=== PATIENT | male | born 1945 | race Caucasian/White ===

== ENCOUNTER 2018-04-03 08:53 | Inpatient (IN) ==
--- NOTE | 2018-04-03 09:23 | XRay Report ---
CLINICAL INFORMATION: sob COMPARISON: 01/10/2016 FINDINGS: Right IJ double-lumen catheter tip overlies the right atrium. The heart is borderline enlarged, but stable. Mediastinum and pulmonary vessels are normal. There is minor atelectasis in left lateral base - remainder lungs are clear. The right lung is relatively hyperexpanded - as previously seen. IMPRESSION: Minor left basilar atelectasis. Interpreted and Authenticated by: Oleg Vargas 04/03/18
--- NOTE | 2018-04-03 09:45 | Emergency Department Note ---
General Adult HPI - General Chief complaint: Recheck/Abnormal Lab/Rx Stated complaint: Call from Dr. Schwarz. Sent to ER. Pos Blood Cultures Time Seen by Provider: 04/03/18 09:36 Source: patient Mode of arrival: ambulatory Limitations: no limitations - History of Present Illness HPI Narrative: This patient was sent to the ED by Dr. Schwarz the radiology aide for admission after having 2+ blood cultures. They were positive for gram positive cocci. The patient is asymptomatic and feels fine. He does have a port in the right upper chest. He has had no recent fever chills nausea vomiting cough or abdominal pain. Dr. Schwarz has given orders and wants to start vancomycin and cefepime after new cultures are drawn. He will then be admitted. - Related Data Home Medications Medication Instructions Recorded Confirmed acetaminophen 325 mg tablet 650 mg PO QID PRN 02/27/18 02/27/18 bisacodyl 10 mg rectal suppository 10 mg TN QDAY PRN 02/27/18 02/27/18 docusate sodium 100 mg tablet 100 mg PO BID 02/27/18 02/27/18 furosemide 80 mg tablet 80 mg PO BID tab 02/27/18 02/27/18 insulin glargine (U-100) 100 15 unit SUB-Q QAM ml 02/27/18 02/27/18 unit/mL subcutaneous solution magnesium hydroxide 400 mg/5 mL 30 ml PO QDAY PRN 02/27/18 02/27/18 oral suspension metoprolol tartrate 25 mg tablet 25 mg PO BID 02/27/18 02/27/18 polyethylene glycol 3350 17 gram 17 g PO QDAY PRN 02/27/18 02/27/18 oral powder packet sennosides 8.6 mg tablet 8.6 mg PO QDAY PRN tab 02/27/18 02/27/18 sevelamer carbonate 800 mg tablet 1,600 mg PO TID tab 02/27/18 02/27/18 sodium phosphates 19 gram-7 118 ml TN ONCE PRN 02/27/18 02/27/18 gram/118 mL enema vitamin B complex-vitamin C-folic 1 tab PO QDAY 02/27/18 02/27/18 acid 0.8 mg tablet Previous Rx's Medication Instructions Recorded amlodipine 10 mg tablet 10 mg PO QDAY #90 tab 12/13/17 Allergies Allergy/AdvReac Type Severity Reaction Status Date / Time sulfamethoxazole Allergy Mild Hives Verified 04/03/18 08:53 [From Bactrim] trimethoprim [From Bactrim] Allergy Mild Hives Verified 04/03/18 08:53 Review of Systems Constitutional: Denies: fever, chills ENT ED: Denies: throat pain Cardiovascular: Denies: chest pain Respiratory: Denies: shortness of breath, cough Gastrointestinal: Denies: abdominal pain, nausea Genitourinary: Denies: dysuria Past Medical History - Past Medical History [facility] Narrative: Medical History (Last Reviewed 02/27/18 @ 13:47 by Maryanne Schwarz MD) 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 ( Chronic) Persistent proteinuria (Chronic) CKD (chronic kidney disease) stage 3, GFR 30-59 ml/min (Chronic) Sepsis affecting skin (Acute) Diabetes mellitus due to underlying condition with diabetic neuropathy, with long-term current use of insulin (Acute) Diabetes mellitus due to underlying condition with foot ulcer, with long-term current use of insulin (Acute) Diabetic foot ulcer associated with diabetes mellitus due to underlying condition (Acute) Malignant hypertension (Acute) Family History (Last Reviewed 02/27/18 @ 13:47 by Maryanne Schwarz MD) Sister Cancer Surgical history ED: Reports: non-contributory - Social History smoking status: Never smoker Alcohol use: Reports: None Drug use: Reports: none Physical Exam Limitations: no limitations General appearance: alert Head: atraumatic Eye: Present: normal appearance ENT: normal exam Neck: Present: normal inspection Chest: Present: normal inspection Respiratory: Present: normal lung sounds bilaterally Cardiovascular: Present: regular rate, normal rhythm, normal heart sounds Abdominal: Present: soft. Absent: distention, tenderness Neurological: Present: alert Psychiatric: Present: normal affect, normal mood Skin: Present: warm, dry, intact Course Vital Signs Temperature 97.7 F 04/03/18 08:54 Pulse Rate 90 04/03/18 08:54 Respiratory Rate 18 04/03/18 08:54 Blood Pressure 112/73 04/03/18 08:54 Pulse Oximetry (%) 97 04/03/18 08:54 Temperature 97.7 F 04/03/18 08:54 Pulse Rate 79 04/03/18 10:46 Respiratory Rate 11 L 04/03/18 11:06 Blood Pressure 137/58 04/03/18 11:01 Pulse Oximetry (%) 95 04/03/18 10:46 Medical Decision Making - [facility] Narrative Medical decision making narrative: Patient's lab work and x-ray were not very remarkable. He did receive vancomycin and cefepime here in the ER and will be admitted to the hospital by Dr. David. - Lab Data Lab results reviewed: Yes I reviewed the patient's lab results. Result diagrams: 04/03/18 09:22 04/03/18 09:22 Lab Results 04/03/18 04/03/18 04/03/18 Range/Units 09:22 09:22 09:22 WBC 13.7 H (4.5-11.0) K/mcL RBC 3.40 L (4.50-5.90) M/mcL Hgb 9.2 L (13.5-16.5) g/dL Hct 27.6 L (41.0-55.0) % MCV 81.1 (80.0-100.0) fL MCH 27.0 (26.0-34.0) pg MCHC 33.3 (31.0-36.0) g/dL RDW 17.0 H (11.5-14.5) % Plt Count 256 (140-440) K/mcL MPV 7.3 L (7.4-10.4) fL Total Counted 100 Seg Neutrophils % 87 H (38-78) % Band Neutrophils % 1 (0-10) % Lymphocytes % 8 L (15-49) % Monocytes % (Manual) 4 (1-12) % Platelet Estimate Normal (NORMAL) RBC Morphology Abnorm A (NORMAL) Anisocytosis 1+ A (NONE SEEN) VBG Lactic Acid 1.4 (0.5-2.2) mmol/L Sodium 136 (133-145) mmol/L Potassium 4.3 (3.3-5.1) mmol/L Chloride 96 (96-108) mmol/L Carbon Dioxide 27 (22-30) mmol/L Anion Gap 13.0 (8-16) BUN 29 H (8-23) mg/dl Creatinine 4.2 H (0.7-1.2) mg/dl GFR Calculation 13 Glucose 178 H (70-105) mg/dL Calcium 8.3 L (8.6-10.4) mg/dl Total Bilirubin 0.8 (0.0-1.0) mg/dL AST 29 (0-37) U/l ALT 21 (0-40) U/l Alkaline Phosphatase 175 H (39-117) U/L Total Protein 6.8 (5.9-8.4) gm/dL Albumin 2.5 L (3.2-5.2) gm/dL Globulin 4.3 H (2.2-3.7) gm/dL Albumin/Globulin Ratio 0.6 L (1.0-2.3) Procalcitonin (<0.10) ng/mL 04/03/18 Range/Units 09:22 WBC (4.5-11.0) K/mcL RBC (4.50-5.90) M/mcL Hgb (13.5-16.5) g/dL Hct (41.0-55.0) % MCV (80.0-100.0) fL MCH (26.0-34.0) pg MCHC (31.0-36.0) g/dL RDW (11.5-14.5) % Plt Count (140-440) K/mcL MPV (7.4-10.4) fL Total Counted Seg Neutrophils % (38-78) % Band Neutrophils % (0-10) % Lymphocytes % (15-49) % Monocytes % (Manual) (1-12) % Platelet Estimate (NORMAL) RBC Morphology (NORMAL) Anisocytosis (NONE SEEN) VBG Lactic Acid (0.5-2.2) mmol/L Sodium (133-145) mmol/L Potassium (3.3-5.1) mmol/L Chloride (96-108) mmol/L Carbon Dioxide (22-30) mmol/L Anion Gap (8-16) BUN (8-23) mg/dl Creatinine (0.7-1.2) mg/dl GFR Calculation Glucose (70-105) mg/dL Calcium (8.6-10.4) mg/dl Total Bilirubin (0.0-1.0) mg/dL AST (0-37) U/l ALT (0-40) U/l Alkaline Phosphatase (39-117) U/L Total Protein (5.9-8.4) gm/dL Albumin (3.2-5.2) gm/dL Globulin (2.2-3.7) gm/dL Albumin/Globulin Ratio (1.0-2.3) Procalcitonin 2.56 (<0.10) ng/mL - Radiology Data Radiology results reviewed: Yes I reviewed the patient's radiology results. Disposition Pt seen by RESOURCE CONSERVATION MANAGER/PA only: No Clinical Impression: Positive blood culture Disposition: Xfer As Inpt ([facility]) Condition: Good Referrals: Allen Holliday DO [Primary Care Provider] - Time of Disposition: 11:27
[2018-04-03] MEDS ORDERED: VANCOMYCIN PER PHARMACY IV ONE (09:46)
[2018-04-03] MEDS ORDERED: CEFEPIME 1 GM VIAL IV ONE (09:46)
[2018-04-03 09:58] LABS: Mean Cell Volume 81.1 fL (80.0-100.0); Mean Corpuscular HGB Conc 33.3 g/dL (31.0-36.0); Platelet Count 256 K/mcL (140-440)
[2018-04-03] MEDS ORDERED: VANCOMYCIN 1,500 MG in 0.9 % SODIUM CHLORIDE 500 ML IV ONE (10:00)
[2018-04-03 10:20] LABS: ALT/SGPT 21 U/l (0-40); Albumin 2.5 gm/dL (3.2-5.2); Albumin/Globulin Ratio 0.6 (1.0-2.3); Alkaline Phosphatase 175 U/L (39-117); Blood Urea Nitrogen 29 mg/dl (8-23)
[2018-04-03 10:25] LABS: Anisocytosis 1+ (NONE SEEN); Band Neutrophils % 1 % (0-10); Lymphocytes % 8 % (15-49); Monocytes % (Manual) 4 % (1-12); Platelet Estimate NORMAL (NORMAL); RBC Morphology ABNORM (NORMAL); Segmented Neutrophils % 87 % (38-78)
--- NOTE | 2018-04-03 13:34 | Internal Med History&Physical ---
Medical - H&P: [facility] Patient information: Note initiated : 04/03/18 at 1:31 pm Service Date, if different from initiated Date: [] Patient: Eb Cornell a 72 y/o M admitted on 04/03/[address] Schwarz, Sent to ER, Pos Blood Cultures. Chief Complaint: [] History of present illness: Mr. Cornell is a 72 year old M Who is a difficult historian. He was seen in the ER by his guncotton packer after positive blood culture. It grew gram-positive cocci. In trying to gather why the blood culture was done sounds like he had some labs that were done which were abnormal suspect may be he had a white blood cell count that was elevated and the workup included blood cultures as her seem to be no clear source at the time. He has no complaints at this time. Denies any recent sick contacts. However he has been in the hospital recently for an amputation of the right lower extremity. Patient denies coughing shortness of breath chest pain denies stomach pain. He does report however diarrhea over the last 3-4 days, but could not describe how often during the day and details surrounding diarrhea. Also denies fevers and chills. Review of Systems: Positive for diarrhea. Denies headache/fever/chills/nausea/vomiting/chest or abdominal pain/cough/dyspnea. Remaining 10 point review of systems reviewed and negative Medical - H&P: [facility] Medical history: Medical History (Last Reviewed 02/27/18 @ 13:47 by Maryanne Schwarz MD) 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 ( Chronic) Persistent proteinuria (Chronic) CKD (chronic kidney disease) stage 3, GFR 30-59 ml/min (Chronic) Sepsis affecting skin (Acute) Diabetes mellitus due to underlying condition with diabetic neuropathy, with long-term current use of insulin (Acute) Diabetes mellitus due to underlying condition with foot ulcer, with long-term current use of insulin (Acute) Diabetic foot ulcer associated with diabetes mellitus due to underlying condition (Acute) Malignant hypertension (Acute) Surgical history: Left lower extremity amputation Appendectomy Bilateral knee surgery Family history: Mother had diabetes Could not give me any medical history regarding his father Social history: Patient denies tobacco or alcohol Patient uses a wheelchair and Christiana lift Patient resides at a SNF Medical - H&P: Meds Home Medications Medication Instructions Recorded Confirmed Type amlodipine 10 mg tablet 10 mg PO QDAY #90 tab 12/13/17 02/27/18 Rx acetaminophen 325 mg tablet 650 mg PO QID PRN 02/27/18 02/27/18 History bisacodyl 10 mg rectal suppository 10 mg VT QDAY PRN 02/27/18 02/27/18 History docusate sodium 100 mg tablet 100 mg PO BID 02/27/18 02/27/18 History furosemide 80 mg tablet 80 mg PO BID tab 02/27/18 02/27/18 History insulin glargine (U-100) 100 15 unit SUB-Q QAM ml 02/27/18 02/27/18 History unit/mL subcutaneous solution magnesium hydroxide 400 mg/5 mL 30 ml PO QDAY PRN 02/27/18 02/27/18 History oral suspension metoprolol tartrate 25 mg tablet 25 mg PO BID 02/27/18 02/27/18 History polyethylene glycol 3350 17 gram 17 g PO QDAY PRN 02/27/18 02/27/18 History oral powder packet sennosides 8.6 mg tablet 8.6 mg PO QDAY PRN tab 02/27/18 02/27/18 History sevelamer carbonate 800 mg tablet 1,600 mg PO TID tab 02/27/18 02/27/18 History sodium phosphates 19 gram-7 118 ml VT ONCE PRN 02/27/18 02/27/18 History gram/118 mL enema vitamin B complex-vitamin C-folic 1 tab PO QDAY 02/27/18 02/27/18 History acid 0.8 mg tablet Allergies Allergy/AdvReac Type Severity Reaction Status Date / Time sulfamethoxazole Allergy Mild Hives Verified 04/03/18 08:53 [From Bactrim] trimethoprim [From Bactrim] Allergy Mild Hives Verified 04/03/18 08:53 Medical - H&P: Exam - Constitutional Vitals: Temp Pulse Resp BP Pulse Ox 98.8 F 90 16 132/58 97 04/03/18 12:54 04/03/18 12:54 04/03/18 12:54 04/03/18 12:54 04/03/18 12:54 Exam: General: Alert, Awake, No acute Distress HEENT: EOMI, normocephalic atraumatic, dry mucous membranes, neck supple CV: RRR, 2/6 systolic murmur, normal s1/s2 Pulm: Clear b/l, no wheezing/rhonchi/rales Abd: soft, protuberant, nontender, +BS x4 Ext: no clubbing/cyanosis/edema, amputation right lower extremity Neuro: Alert, no focal deficits, moves all extremities Skin: warm/dry Medical - H&P: Reslt - Labs CBC & Chem 7: 04/03/18 09:22 04/03/18 09:22 Labs: Short CBC 04/03/18 Range/Units 09:22 WBC 13.7 H (4.5-11.0) K/mcL Hgb 9.2 L (13.5-16.5) g/dL Hct 27.6 L (41.0-55.0) % Plt Count 256 (140-440) K/mcL BMP 04/03/18 09:22 Sodium 136 Potassium 4.3 Chloride 96 Carbon Dioxide 27 BUN 29 H Creatinine 4.2 H Glucose 178 H Calcium 8.3 L Liver Function 04/03/18 Range/Units 09:22 Total Bilirubin 0.8 (0.0-1.0) mg/dL AST 29 (0-37) U/l ALT 21 (0-40) U/l Alkaline Phosphatase 175 H (39-117) U/L Albumin 2.5 L (3.2-5.2) gm/dL - Imaging and Cardiology Chest x-ray Status: image reviewed by mo Medical - H&P: A/P - Narrative A/P Narrative: A: *Bacteremia (GPC): Source unidentified at this time. Could be associated with indwelling catheter versus GI source with enterococcus versus other. *ESRD: Follows with Dr. Schwarz *Anemia of chronic disease: *Hypertension: *Diabetes: * P: -Continue Vanco/cefepime -Pending blood cultures -Pending echocardiogram -Nephrology and infectious disease following -Trend pro calcitonin -Stool studies pending -SSI -PT/OT -ppx: heparin
--- NOTE | 2018-04-03 13:45 | Nephrology Consult Note ---
History of Present Illness - Reason for Consult Patient information: Note initiated : 04/03/18 at 1:40 pm Service Date, if different from initiated Date: [] Patient: Eb Cornell a 72 y/o M admitted on 04/03/[address] Schwarz, Sent to ER, Pos Blood Cultures. Chief Complaint: [] Consult date: 04/03/18 acute renal failure Requesting physician: Onofre Alvarenga - Chief Complaint positive blood cultures - History of Present Illness Patient is a 72 y/o white with PMH of CHERYL atop CKD among multiple other medical issues who is been called to er by me for positive blood culture and admission for further work up Patient has been noted to have elevated WBC count, chronically, he had blood culture done in January which was negative, he did have ? UTI and was treated with dual antibiotic in January by SNF, however his WBC count remained elevated. Patient noted to have some intermittent confusion and worsening health with poor appetite and weakness and again elevated WBC count so work up including blood culture yesterday and this was positive so patient is been hospitalised for work up He c/o pain on and off but is not specific about this, denies cough, no dysuria , does have diarrhea on and off for the last 3-4 days but unclear how severe denies any other symptoms Review of Systems All systems PM: reviewed and no additional remarkable complaints except as stated (as in HPI) Past History Past medical history: Acute on chronic renal failure from likely ATN from sepsis, on HD with no recovery of renal function HTN DM type 2 Anemia of chronic disease dyslipidemia moderate MSSA bactremia, osteomyelitis s/p right BKA obesity Past surgical history: s/p TCC h/o right BKA Past family history: sister had cancer 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 current addictions Medications and Allergies Home Medications Medication Instructions Recorded Confirmed Type amlodipine 10 mg tablet 10 mg PO QDAY #90 tab 12/13/17 02/27/18 Rx acetaminophen 325 mg tablet 650 mg PO QID PRN 02/27/18 02/27/18 History bisacodyl 10 mg rectal suppository 10 mg MD QDAY PRN 02/27/18 02/27/18 History docusate sodium 100 mg tablet 100 mg PO BID 02/27/18 02/27/18 History furosemide 80 mg tablet 80 mg PO BID tab 02/27/18 02/27/18 History insulin glargine (U-100) 100 15 unit SUB-Q QAM ml 02/27/18 02/27/18 History unit/mL subcutaneous solution magnesium hydroxide 400 mg/5 mL 30 ml PO QDAY PRN 02/27/18 02/27/18 History oral suspension metoprolol tartrate 25 mg tablet 25 mg PO BID 02/27/18 02/27/18 History polyethylene glycol 3350 17 gram 17 g PO QDAY PRN 02/27/18 02/27/18 History oral powder packet sennosides 8.6 mg tablet 8.6 mg PO QDAY PRN tab 02/27/18 02/27/18 History sevelamer carbonate 800 mg tablet 1,600 mg PO TID tab 02/27/18 02/27/18 History sodium phosphates 19 gram-7 118 ml MD ONCE PRN 02/27/18 02/27/18 History gram/118 mL enema vitamin B complex-vitamin C-folic 1 tab PO QDAY 02/27/18 02/27/18 History acid 0.8 mg tablet Allergies Allergy/AdvReac Type Severity Reaction Status Date / Time sulfamethoxazole Allergy Mild Hives Verified 04/03/18 08:53 [From Bactrim] trimethoprim [From Bactrim] Allergy Mild Hives Verified 04/03/18 08:53 Exam - Vital Signs Vital signs: Temp Pulse Resp BP Pulse Ox 98.8 F 90 16 132/58 97 04/03/18 12:54 04/03/18 12:54 04/03/18 12:54 04/03/18 12:54 04/03/18 12:54 - General Appearance General appearance: appears started age, chronically ill EENT: mucous membranes moist Neck: no JVD Respiratory: clear Cardiology: mid-systolic murmur, no rub, regular rate, regular rhythm Gastrointestinal: no tenderness, no guarding Integumentary: warm and dry Neurologic: alert and oriented x3 Musculoskeletal: no erythema, no cyanosis Psychiatric: mood/affect appropriate Results - Lab Results 04/03/18 09:22 04/03/18 09:22 Most recent lab results Calcium 8.3 mg/dl (8.6-10.4) L 04/03/18 09:22 Assessment and Plan (1) Anemia due to chronic disease treated with erythropoietin Status: Acute (2) Acute on chronic renal failure patient with no emergent need for LEAD PAINTER He has enterococcal bacteremia, hemodynamically stable, received vanc and cefepime CXR negative will need to find source, has TCC will await ID recommendations will need to change TCC but will wait until cultures negative would recommend not to have contrast study as patient has CHERYL to prevent any further insult to kidneys anemia of chronic disease: tsat low but elevated ferritin, ct oral iron and aranesp malnutrition Appreciate hospitalist help with managing this patient Status: Acute (3) Positive blood culture Status: Acute
[2018-04-03] MEDS ORDERED: VANCOMYCIN PER PHARMACY IV SCH (14:43)
[2018-04-03] MEDS ORDERED: ACETAMINOPHEN 325 MG TABLET PO PRN (14:43)
[2018-04-03] MEDS ORDERED: NALOXONE HCL 0.4 MG/ML VIAL IV PRN (14:43)
[2018-04-03] MEDS ORDERED: oxyCODONE HCL 5 MG TABLET PO PRN (14:43)
[2018-04-03] MEDS ORDERED: ALBUTEROL SULFATE 2.5 MG/3 ML NEBULIZER NEB PRN (14:43)
[2018-04-03] MEDS ORDERED: ONDANSETRON 4 MG/2 ML VIAL IV PRN (14:43)
[2018-04-03] MEDS ORDERED: DEXTROSE 31 GM ORAL.SUSP PO PRN (14:43)
[2018-04-03] MEDS ORDERED: DEXTROSE 50% 50 ML VIAL IV PRN (14:43)
[2018-04-03 16:40] LABS: Appearance,Urine CLOUDY; Bacteria,Urine FEW /hpf (0); Bilirubin,Urine NEG (NEG); Color,Urine AMBER; Glucose,Urine (UA) 50 mg/dL (NEG); Leukocyte Esterase,Urine 25 /uL (NEG); Protein,Urine >=500 mg/dL (NEG); Specific Gravity,Urine 1.014 (1.000-1.035); Urine Blood >=1.0 mg/dL (<0.03); Urine RBC > 182 /hpf (0-1); Urine Squamous Epithelial Cell 12 /hpf (0-4); Urine Transitional Epi Cells 3 /hpf (0-2); Urine WBC 154 /hpf (0-4); Urobilinogen,Urine NEG (NEG)
[2018-04-03] MEDS: SEVELAMER 800 MG TABLET PO SCH (17:38)
[2018-04-03] MEDS: INSULIN LISPRO 1 UNIT/0.01 ML UNIT SQ SCH ×2 (17:40→20:38)
[2018-04-03] MEDS: 0.9 % SODIUM CHLORIDE 10 ML SYRINGE IV SCH ×2 (17:40→20:56)
[2018-04-03] MEDS: HEPARIN 5,000 UNIT/ML VIAL SQ SCH (20:38)
[2018-04-03] MEDS: FOLIC ACID/VITAMIN B COMP W-C 1 TAB TABLET PO SCH (20:38)
[2018-04-03] MEDS: FUROSEMIDE 80 MG TABLET PO SCH (20:38)
[2018-04-03] MEDS: METOPROLOL TARTRATE 25 MG TABLET PO SCH (20:38)
[2018-04-03] MEDS: amLODIPine 10 MG TABLET PO SCH (20:38)
--- NOTE | 2018-04-03 20:50 | Infectious Disease Consult ---
History of Present Illness Patient information: Note initiated : 04/03/18 at 8:49 pm Service Date, if different from initiated Date: [] Patient: Eb Cornell 72 y/o M admitted on 04/03/[address] Schwarz, Sent to ER, Pos Blood Cultures. Chief Complaint: [] Consult date: 04/03/18 Requesting Physician: Ernesto David Reason for Consult: Enterococcus bacteremia associated with a HD catheter Chief complaint: I have not been feeling well History of present illness: 72 year-old man (resident of a SNF) with PMHx pertinent for: - severe CHERYL (? due to sepsis) on top of pre-existing CKD in December 2017 needing hemodialysis through Rt IJ TDC (Mo, , Mon) - MSSA bacteremia with sepsis, s/p Rt BKA (in setting of osteomyelitis) Pt was admitted today after being called by his director of learning (Dr. Schwarz) for positive blood cultures. Pt during my visit, didnot specify any particular symptoms. He denied any fever, chills, pain/redness at the HD cath site. According to Dr Schwarz, pt had episodes of confusion during dialysis, and his WBC has been chronically elevated in 11k-13k range. A set of blood Cx were obtained in January which were negative. He also has been having diarrhea for last few days. On ROS, pt denied any other symtpoms. He doesnot make urine. 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 Medications and Allergies Home Medications Medication Instructions Recorded Confirmed Type acetaminophen 325 mg tablet 650 mg PO Q4HP PRN 02/27/18 04/03/18 History docusate sodium 100 mg tablet 100 mg PO BID 02/27/18 04/03/18 History furosemide 80 mg tablet 80 mg PO BID tab 02/27/18 04/03/18 History insulin glargine (U-100) 100 15 unit SUB-Q QAM ml 02/27/18 04/03/18 History unit/mL subcutaneous solution metoprolol tartrate 25 mg tablet 25 mg PO BID 02/27/18 04/03/18 History polyethylene glycol 3350 17 gram 17 g PO DAILYP PRN 02/27/18 04/03/18 History oral powder packet sevelamer carbonate 800 mg tablet 1,600 mg PO TIDAC tab 02/27/18 04/03/18 History sodium phosphates 19 gram-7 118 ml [place] ONCE PRN 02/27/18 04/03/18 History gram/118 mL enema Bisacodyl [Dulcolax] 10 mg TX DAILYP PRN 04/03/18 04/03/18 History Folic Acid/Vit Bcomp,C 0.8 mg PO BID 04/03/18 04/03/18 History [Nephro-Vinny Tablet] Magnesium Hydroxide [Milk of 400 mg PO DAILYP PRN 04/03/18 04/03/18 History Magnesia] Sennosides [Senna] 8.6 mg PO PRN PRN 04/03/18 04/03/18 History amLODIPine BESYLATE [Amlodipine 10 mg PO QHS 04/03/18 04/03/18 History Besylate] Allergies Allergy/AdvReac Type Severity Reaction Status Date / Time sulfamethoxazole Allergy Mild Hives Verified 04/03/18 08:53 [From Bactrim] trimethoprim [From Bactrim] Allergy Mild Hives Verified 04/03/18 08:53 Physical Examination Vital signs: Temp Pulse Resp BP Pulse Ox 37.0 C 74 18 132/84 98 04/03/18 16:00 04/03/18 16:00 04/03/18 16:00 04/03/18 16:00 04/03/18 16:00 General appearance: no acute distress, alert Eyes pulmonary: nonicteric ENT: other (no thrush) Auscultation: bilateral: clear Cardiovascular: regular rate and rhythm, other (has diastolic murmur best heard over left 2nd ICS) Gastrointestinal: normoactive bowel sounds, non-tender Extremities: no edema Results - Laboratory Findings CBC and BMP: 04/03/18 09:22 04/03/18 09:22 Abnormal lab findings: Abnormal Labs 04/03/18 04/03/18 04/03/18 09:22 09:22 15:55 WBC 13.7 H RBC 3.40 L Hgb 9.2 L Hct 27.6 L RDW 17.0 H MPV 7.3 L Seg Neutrophils % 87 H Lymphocytes % 8 L RBC Morphology Abnorm A Anisocytosis 1+ A BUN 29 H Creatinine 4.2 H Glucose 178 H Calcium 8.3 L Alkaline Phosphatase 175 H Albumin 2.5 L Globulin 4.3 H Albumin/Globulin Ratio 0.6 L Urine Protein >=500 A Urine Glucose (UA) 50 A Urine Occult Blood >=1.0 A Ur Leukocyte Esterase 25 A Urine RBC > 182 H Urine WBC 154 H Ur Squamous Epith Cells 12 H Ur Transition Epith Cell 3 H Urine Bacteria Few A Microbiology: 2/2 Blood Cx from 04/02 +ve Enterococcus spp Assessment and Plan - Narrative A/P Narrative: A: 1. Enterococcus fecalis bacteremia (Van A/B gene neg): 2/2 blood Cx including one from HD line The source for bacteremia seems unclear, although following might be responsible : - Possible infective endocarditis: pt meets 1 major and 1 minor of modified Dash criteria - HD line: lack of inflammation around the exit site makes it less likely but could be possible, as all HD line associated bacteremia might not have exit site infections. HD line is possibly seeded because of bacteremia - Intra-abd source: genito-urinary tract stones, GB is another source for Enterococcal infections 2. No sepsis Recommendations: - Continue IV Vanc 1 gm after HD. Check levels before HD (target 10-20). - Add IV Ceftriaxone 2 gm q12 hrs, till endocarditis is ruled out - will deescalate therapy based on sensitivities - Consider SCAR as TTE done today was a technically difficult study - If SCAR is negative, consider CT abd/pelvis w/o contrast to look for a source - Consider removal of HD line after HD tomorrow. Once blood Cx neg for 72 hrs, a new HD line can be re-inserted will follow Derrick Cody MD Infectious diseases
[2018-04-04 06:12] LABS: Basophils # (Auto) 0 K/mcL (0.0-0.3); Basophils % (Auto) 0.3 % (0.0-2.0); Eosinophils # (Auto) 0.1 K/mcL (0.0-0.7); Eosinophils % (Auto) 0.7 % (0.0-7.0); Granulocytes % (Auto) 72.1 % (38.0-78.0); Lymphocytes # (Auto) 1.3 K/mcL (1.5-4.8); Lymphocytes % (Auto) 13.9 % (15.5-49.0); Mean Cell Volume 81.7 fL (80.0-100.0); Mean Corpuscular HGB Conc 32.9 g/dL (31.0-36.0); Mean Corpuscular Hemoglobin 26.9 pg (26.0-34.0); Monocytes # (Auto) 1.2 K/mcL (0.1-0.9); Platelet Count 211 K/mcL (140-440); RBC 2.92 M/mcL (4.50-5.90); Red Cell Distribution Width 16.5 % (11.5-14.5)
[2018-04-04] MEDS ORDERED: cefTRIAXone 2 GM in DEXTROSE 5% IN WATER 50 ML IV SCH (06:30)
[2018-04-04] MEDS: 0.9 % SODIUM CHLORIDE 10 ML SYRINGE IV SCH ×2 (06:37→14:00)
[2018-04-04 07:07] LABS: ALT/SGPT 16 U/l (0-40); Albumin 2.1 gm/dL (3.2-5.2); Albumin/Globulin Ratio 0.5 (1.0-2.3); Alkaline Phosphatase 130 U/L (39-117); Bilirubin,Direct 0.2 mg/dL (0.0-0.3); Blood Urea Nitrogen 43 mg/dl (8-23); Gamma Glutamyl Transpeptidase 74 U/L (8-61); Uric Acid 5.4 mg/dL (2.5-8.0)
[2018-04-04] MEDS: INSULIN LISPRO 1 UNIT/0.01 ML UNIT SQ SCH ×4 (07:30→21:50)
[2018-04-04] MEDS: FUROSEMIDE 80 MG TABLET PO SCH ×2 (07:31→21:50)
[2018-04-04] MEDS: METOPROLOL TARTRATE 25 MG TABLET PO SCH ×2 (07:31→21:50)
[2018-04-04] MEDS: FOLIC ACID/VITAMIN B COMP W-C 1 TAB TABLET PO SCH ×2 (07:31→21:51)
[2018-04-04] MEDS: SEVELAMER 800 MG TABLET PO SCH ×3 (07:31→19:09)
[2018-04-04] MEDS: HEPARIN 5,000 UNIT/ML VIAL SQ SCH ×2 (07:32→21:00)
--- NOTE | 2018-04-04 08:28 | Internal Med Progress Note ---
Medical - PN: Subj Patient information: Note initiated : 04/04/18 at 8:21 am Service Date, if different from initiated Date: [] Patient: Eb Cornell a 72 y/o M admitted on 04/03/18 for Enterococcus Fecalis Bacteremia . Chief Complaint: [] Interval history: Mr. Cornell is a 72 year old M Who is a difficult historian. 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 It grew gram-positive cocci. In trying to gather why the blood culture was done sounds like he had some labs that were done which were abnormal suspect may be he had a white blood cell count that was elevated and the workup included blood cultures as her seem to be no clear source at the time. He has no complaints at this time. Denies any recent sick contacts. However he has been in the hospital recently for an amputation of the right lower extremity. 04/04 Slept well, no events. Plan to get tunneled catheter removed and SCAR done over at [facility]. Review of Systems: denies headache/fever/chills/nausea/vomiting/chest or abdominal pain/cough/ dyspnea/diarrhea. Otherwise see above. - Constitutional Vitals: Vital Signs Temp Pulse Resp BP Pulse Ox 98.2 F 79 22 144/67 94 04/04/18 07:36 04/04/18 03:55 04/04/18 07:36 04/04/18 07:36 04/04/18 07:36 Period Temp Pulse Resp BP Sys/Robles Pulse Ox Last 24 Hr 97.1 F-98.8 F 74-90 11-25 112-149/50-84 82-98 Intake and Output 04/03/18 04/04/18 04/04/18 21:59 05:59 13:59 Intake Total 120 / 120 180 / 180 Output Total Balance 119 / 119 180 / 180 Weight 119.522 kg Intake & Output: Intake & Output 04/03/18 04/04/18 04/04/18 21:59 05:59 13:59 Intake Total 120 / 120 180 / 180 Output Total Balance 119 / 119 180 / 180 Weight 119.522 kg Intake: Oral 120 / 120 180 / 180 Output: # of times incontinent of urine Other: Meal Dinner Percent of Meal Consumed 100% Feeding Ability Independent Exam: General: Alert, Awake, No acute Distress HEENT: EOMI, neck supple CV: Regular with occasional ectopic beat, 2/6 systolic murmur, Pulm: Clear b/l, no wheezing/rhonchi/rales Abd: soft, protuberant, nontender, +BS x4 Ext: no clubbing/cyanosis/edema, amputation right lower extremity Neuro: Alert, no focal deficits, moves all extremities Skin: warm/dry Medical - PN: Obj Da - Labs CBC & Chem 7: 04/04/18 04:59 04/04/18 04:59 Labs: Abnormal Lab Results 04/04/18 04/04/18 04/03/18 04:59 04:59 15:55 WBC RBC 2.92 L Hgb 7.9 L Hct 23.9 L RDW 16.5 H MPV Lymph % (Auto) 13.9 L Hale % (Auto) 13.0 H Lymph # (Auto) 1.3 L Hale # (Auto) 1.2 H Seg Neutrophils % Lymphocytes % RBC Morphology Anisocytosis BUN 43 H Creatinine 5.3 H* Glucose 109 H Calcium 8.3 L GGT 74 H Alkaline Phosphatase 130 H Lactate Dehydrogenase 252 H Albumin 2.1 L Globulin 3.9 H Albumin/Globulin Ratio 0.5 L Triglycerides 220 H Urine Protein >=500 A Urine Glucose (UA) 50 A Urine Occult Blood >=1.0 A Ur Leukocyte Esterase 25 A Urine RBC > 182 H Urine WBC 154 H Ur Squamous Epith Cells 12 H Ur Transition Epith Cell 3 H Urine Bacteria Few A 04/03/18 04/03/18 09:22 09:22 WBC 13.7 H RBC 3.40 L Hgb 9.2 L Hct 27.6 L RDW 17.0 H MPV 7.3 L Lymph % (Auto) Hale % (Auto) Lymph # (Auto) Hale # (Auto) Seg Neutrophils % 87 H Lymphocytes % 8 L RBC Morphology Abnorm A Anisocytosis 1+ A BUN 29 H Creatinine 4.2 H Glucose 178 H Calcium 8.3 L GGT Alkaline Phosphatase 175 H Lactate Dehydrogenase Albumin 2.5 L Globulin 4.3 H Albumin/Globulin Ratio 0.6 L Triglycerides Urine Protein Urine Glucose (UA) Urine Occult Blood Ur Leukocyte Esterase Urine RBC Urine WBC Ur Squamous Epith Cells Ur Transition Epith Cell Urine Bacteria Meds: Medications Acetaminophen (Tylenol) 650 mg PO Q6HP PRN PRN Reason: PAIN/FEVER > 101 Albuterol Sulfate (Ventolin) 2.5 mg NEB Q2HP PRN PRN Reason: Shortness Of Breath Amlodipine Besylate (Norvasc) 10 mg PO QHS [facility] Last Admin: 04/03/18 20:38 Dose: 10 mg Dextrose (Dextrose 50%) 0 ml IV UD PRN PRN Reason: Hypoglycemia Diagnostic Test (Pha) (Accu-Chek) 1 each FS [facility] Last Admin: 04/04/18 07:30 Dose: 1 each Furosemide (Lasix) 80 mg PO BID [facility] Last Admin: 04/04/18 07:31 Dose: 80 mg Glucose (Insta-Glucose) 15 gm PO PRN PRN PRN Reason: Hypoglycemia Heparin Sodium (Porcine) (Heparin) 5,000 unit SQ Q12 [facility] Last Admin: 04/04/18 07:32 Dose: Not Given Ceftriaxone Sodium 2 gm/ (Dextrose) 50 mls @ 100 mls/hr IV Q12H [facility] Insulin Glargine ([facility]us) [facility] [place] Last Admin: 04/04/18 07:30 Dose: Not Given Insulin Human Lispro (Humalog) 0 unit SQ [facility]; Protocol Last Admin: 04/04/18 07:30 Dose: Not Given Metoprolol Tartrate (Lopressor) 25 mg PO BID [facility] Last Admin: 04/04/18 07:31 Dose: 25 mg Multivit/Ca Carb/B Cmplx/FA/Prenat (Diatx) 1 tab PO BID [facility] Last Admin: 04/04/18 07:31 Dose: 1 tab Naloxone HCl (Narcan) 0.1 mg IV Q2MIN PRN PRN Reason: Opiate Reversal Ondansetron HCl (Zofran) 4 mg IV Q6HP PRN PRN Reason: Nausea And Vomiting Oxycodone HCl (Roxicodone) 5 mg PO Q4HP PRN PRN Reason: pain not responding to tylenol Sevelamer Carbonate (Renvela) 1,600 mg PO TIDAC [facility] Last Admin: 04/04/18 07:31 Dose: 1,600 mg Sodium Chloride (Saline Flush) 10 ml IV Q8 [facility] Last Admin: 04/04/18 06:37 Dose: Not Given Vancomycin HCl (Vancomycin Per Pharmacy) 1 [place] IV [facility] [place] - PN: A/P - Time Spent With Patient Total time spent is greater than 50% in coordination of care (as documented) at patient's floor/unit and/or counseling patient: - Narrative A/P Narrative: A: *Bacteremia (Enterococcus): Source unidentified at this time. -Leukocytosis improved *ESRD: Follows with Dr. 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 -Trend pro calcitonin -Stool studies pending -SSI -PT/OT -ppx: heparin Medical - PN: Qual - VTE Deep Vein Thrombosis/Pulmonary Embolism Present on Admission: No
[2018-04-04] MEDS: cefTRIAXone 2 GM in DEXTROSE 5% IN WATER 50 ML IV SCH ×2 (08:54→21:00)
[2018-04-04] MEDS ORDERED: INSULIN GLARGINE, HUMAN 1 UNIT/0.01 ML SQ SCH (09:00)
[2018-04-04] MEDS ORDERED: CEFEPIME 1 GM VIAL IV SCH (09:00)
--- NOTE | 2018-04-04 09:49 | Nephrology Progress Note ---
Subjective Patient information: Note initiated : 04/04/18 at 9:47 am Service Date, if different from initiated Date: [] Patient: Eb Cornell 72 y/o M admitted on 04/03/18 for Enterococcus Fecalis Bacteremia . Chief Complaint: [] Principal diagnosis: enterococcal bacteremia Interval history: patient has no new complaints he denies pain, SOB, CP no edema remains oligoanuric on ceftriaxone and vanc for enterococcal bacteremia echo negative, will need SCAR to ensure no endocarditis also will need tunneled cath removal Pertinent ROS: as above Objective - Vital Signs Vital signs: Vital Signs Temp Pulse Pulse Resp BP BP Pulse Ox 04/04/18 07:36 98.2 F 22 144/67 94 04/04/18 03:55 97.1 F 79 18 131/68 93 04/04/18 00:22 97.8 F 76 20 134/81 94 04/03/18 23:17 86 18 04/03/18 23:16 86 18 94 04/03/18 19:55 83 97 04/03/18 19:30 98 04/03/18 19:25 98.7 F 82 20 149/61 82 L 04/03/18 16:00 98.6 F 74 18 132/84 98 04/03/18 12:55 98.8 F 16 97 04/03/18 12:54 98.8 F 90 16 132/58 97 04/03/18 12:50 90 16 97 04/03/18 12:49 98.8 F 04/03/18 12:46 84 17 132/58 96 04/03/18 12:42 87 25 H 97 04/03/18 12:31 81 20 122/82 96 04/03/18 12:16 22 130/50 04/03/18 12:01 19 149/67 04/03/18 11:46 22 130/55 04/03/18 11:31 14 140/71 04/03/18 11:16 12 136/55 04/03/18 11:06 11 L 04/03/18 11:01 17 137/58 04/03/18 10:46 79 14 130/59 95 04/03/18 10:42 80 25 H 140/60 96 04/03/18 10:17 81 17 113/65 97 Intake and Output 04/03/18 04/04/18 04/04/18 21:59 05:59 13:59 Intake Total 120 / 120 180 / 180 Output Total Balance 119 / 119 180 / 180 Intake: Oral 120 / 120 180 / 180 Output: # of times incontinent of urine Other: Meal Dinner Percent of Meal Consumed 100% Feeding Ability Independent Weight 263 lb 8 oz Intake & Output: Intake & Output 04/03/18 04/04/18 04/04/18 21:59 05:59 13:59 Intake Total 120 / 120 180 / 180 Output Total Balance 119 / 119 180 / 180 Weight 263 lb 8 oz Intake: Oral 120 / 120 180 / 180 Output: # of times incontinent of urine Other: Meal Dinner Percent of Meal Consumed 100% Feeding Ability Independent - General Appearance General appearance: appears started age, frail EENT: mucous membranes moist Neck: no JVD Respiratory: clear Cardiology: mid-systolic murmur, no rub, regular rate, regular rhythm Gastrointestinal: no tenderness, no guarding Integumentary: warm and dry Neurologic: alert and oriented x3 Musculoskeletal: no erythema, no cyanosis Psychiatric: mood/affect appropriate (though has crying spells) - Lab 04/04/18 04:59 04/04/18 04:59 Most recent lab results Calcium 8.3 mg/dl (8.6-10.4) L 04/04/18 04:59 Phosphorus 3.9 mg/dL (2.7-4.5) 04/04/18 04:59 Magnesium 2.0 mg/dL (1.6-2.5) 04/04/18 04:59 Assessment and Plan (1) Anemia due to chronic disease treated with erythropoietin Status: Acute (2) Acute on chronic renal failure s.creatinine 5.3, no urine output will do HD today, tunneled cath removal after dialysis per ID recommendation depending on his blood culture will need non tunneled or tunneled cath on Monday , discussed with IR Enterococcal bacteremia with unclear source, we know cath is seeded so will remove today per ID rec, ct antibiotic, vanc dosing per pharmacy anemia of chronic disease and also has low tsat, ferritin at around 650 Hb trending down will resume IV iron and then give aranesp malnutrition: did eat his dinner 100% last night requested dietitian to ensure he gets nepro bid appreciate hospitalist help with managing this patient Status: Acute (3) Positive blood culture Status: Acute
--- NOTE | 2018-04-04 14:53 | Infectious Disease Prog Note ---
Subjective Patient information: Note initiated : 04/04/18 at 2:50 pm Service Date, if different from initiated Date: [] Patient: Eb Cornell 72 y/o M admitted on 04/03/18 for Enterococcus Fecalis Bacteremia . Chief Complaint: [] Principal diagnosis: enterococcal bacteremia Interval history: Pt is doing well overall. Mentioned having small amount of loose stools this am. Denied any fever, chills, pain/redness/swelling over the tunneled dialysis catheter (TDC). Is NPO for his SCAR and HD cath removal today. Objective Objective Narrative: No thrush Chest clear to auscultation anteriorly S1 soft S2 normal, has a 3 out of 6 ejection systolic murmur best heard at right second intercostal space Bowel sounds present, nontender, distended, soft The HD catheter site looks okay without any drainage - Vital Signs Vital signs: Vital Signs Temp Pulse Pulse Resp BP BP Pulse Ox 04/04/18 14:30 80 141/78 04/04/18 14:15 80 151/82 04/04/18 14:00 74 143/75 04/04/18 13:45 74 142/78 04/04/18 13:30 80 132/85 04/04/18 13:15 80 141/81 04/04/18 13:00 80 130/74 04/04/18 12:45 86 134/83 04/04/18 12:15 80 130/70 04/04/18 12:00 36.8 C 24 H 130/70 93 04/04/18 11:50 36.8 C 82 140/82 04/04/18 07:36 36.8 C 22 144/67 94 04/04/18 03:55 36.2 C 79 18 131/68 93 04/04/18 00:22 36.6 C 76 20 134/81 94 04/03/18 23:17 86 18 04/03/18 23:16 86 18 94 04/03/18 19:55 83 97 04/03/18 19:30 98 04/03/18 19:25 37.1 C 82 20 149/61 82 L 04/03/18 16:00 37.0 C 74 18 132/84 98 Intake and Output 04/04/18 04/04/18 04/04/18 05:59 13:59 21:59 Intake Total 180 / 180 50 / 50 Balance 180 / 180 50 / 50 Intake: IV 50 / 50 Rocephin 2 gm In Dextrose 5% in 50 / 50 Water 50 ml @ 100 mls/hr IV Q12H [facility] Rx#:[id number] Oral 180 / 180 Other: Weight 119.522 kg Patient Weight 04/05/18 05:59 Weight 119.522 kg Intake & Output: Intake & Output 04/04/18 04/04/18 04/04/18 05:59 13:59 21:59 Intake Total 180 / 180 50 / 50 Balance 180 / 180 50 / 50 Weight 119.522 kg Intake: IV 50 / 50 Rocephin 2 gm In Dextrose 5% in 50 / 50 Water 50 ml @ 100 mls/hr IV Q12H [facility] Rx#:[id number] Oral 180 / 180 - General Appearance General appearance: well-developed, obese - Lab 04/04/18 04:59 04/04/18 04:59 Most recent lab results Calcium 8.3 mg/dl (8.6-10.4) L 04/04/18 04:59 Phosphorus 3.9 mg/dL (2.7-4.5) 04/04/18 04:59 Magnesium 2.0 mg/dL (1.6-2.5) 04/04/18 04:59 Microbiology 04/03/18 10:00 Blood Blood Culture - Preliminary Gram positive cocci 04/03/18 09:22 Blood Blood Culture - Preliminary Gram positive cocci Medications Active Medications: Acetaminophen (Tylenol) 650 mg PO Q6HP PRN PRN Reason: PAIN/FEVER > 101 Albuterol Sulfate (Ventolin) 2.5 mg NEB Q2HP PRN PRN Reason: Shortness Of Breath Amlodipine Besylate (Norvasc) 10 mg PO QHS [facility] Last Admin: 04/03/18 20:38 Dose: 10 mg Dextrose (Dextrose 50%) 0 ml IV UD PRN PRN Reason: Hypoglycemia Diagnostic Test (Pha) (Accu-Chek) 1 each FS ACHS [facility] Last Admin: 04/04/18 13:02 Dose: 1 each Admin: 04/04/18 07:30 Dose: 1 each Admin: 04/03/18 20:38 Dose: 1 each Admin: 04/03/18 17:40 Dose: 1 each Furosemide (Lasix) 80 mg PO BID [facility] Last Admin: 04/04/18 07:31 Dose: 80 mg Admin: 04/03/18 20:38 Dose: 80 mg Glucose (Insta-Glucose) 15 gm PO PRN PRN PRN Reason: Hypoglycemia Heparin Sodium (Porcine) (Heparin) 5,000 unit SQ Q12 [facility] Last Admin: 04/04/18 07:32 Dose: Admin: 04/03/18 20:38 Dose: 5,000 unit Ceftriaxone Sodium 2 gm/ (Dextrose) 50 mls @ 100 mls/hr IV Q12H [facility] Last Infusion: 04/04/18 10:30 Dose: 100 mls/hr Admin: 04/04/18 08:54 Dose: 100 mls/hr Insulin Glargine (Lantus) 15 unit SQ QAM [facility] Last Admin: 04/04/18 07:30 Dose: Comments: 1/2 dose lantus per MD Insulin Human Lispro (Humalog) 0 unit SQ ACHS [facility]; Protocol Last Admin: 04/04/18 13:02 Dose: Not Given Non-Admin Reason: No Coverage Needed Admin: 04/04/18 07:30 Dose: Not Given Non-Admin Reason: No Coverage Needed Admin: 04/03/18 20:38 Dose: 2 unit Admin: 04/03/18 17:40 Dose: Not Given Non-Admin Reason: No Coverage Needed Metoprolol Tartrate (Lopressor) 25 mg PO BID [facility] Last Admin: 04/04/18 07:31 Dose: 25 mg Admin: 04/03/18 20:38 Dose: 25 mg Multivit/Ca Carb/B Cmplx/FA/Prenat (Diatx) 1 tab PO BID [facility] Last Admin: 04/04/18 07:31 Dose: 1 tab Admin: 04/03/18 20:38 Dose: 1 tab Naloxone HCl (Narcan) 0.1 mg IV Q2MIN PRN PRN Reason: Opiate Reversal Ondansetron HCl (Zofran) 4 mg IV Q6HP PRN PRN Reason: Nausea And Vomiting Oxycodone HCl (Roxicodone) 5 mg PO Q4HP PRN PRN Reason: pain not responding to tylenol Sevelamer Carbonate (Renvela) 1,600 mg PO TIDAC [facility] Last Admin: 04/04/18 13:03 Dose: Not Given Non-Admin Reason: NPO Admin: 04/04/18 07:31 Dose: 1,600 mg Admin: 04/03/18 17:38 Dose: 1,600 mg Sodium Chloride (Saline Flush) 10 ml IV Q8 [facility] Last Admin: 04/04/18 06:37 Dose: Not Given Non-Admin Reason: Patient Refused Admin: 04/03/18 20:56 Dose: Not Given Non-Admin Reason: Patient Refused Admin: 04/03/18 17:40 Dose: 10 ml Vancomycin HCl (Vancomycin Per Pharmacy) 1 order IV UD [facility] Assessment and Plan - Narrative A/P Narrative: A: 1. Enterococcus fecalis bacteremia (Van A/B gene neg): 2/2 blood Cx including one from HD line The source for bacteremia seems unclear, although following might be responsible : - Possible infective endocarditis: pt meets 1 major and 1 minor of modified Dash criteria. TTE (a technically difficult study) was negative - HD line: lack of inflammation around the exit site makes it less likely but could be possible, as all HD line associated bacteremia might not have exit site infections. HD line is possibly seeded because of bacteremia - Intra-abd source: genito-urinary tract stones, GB is another source for Enterococcal infections 2. No sepsis Recommendations: - Pt to undergo SCAR and HD cath removal today - Continue IV Vanc 1 gm after HD. Check levels before HD (target 10-20). Pharmacy to help with dosing - Continue IV Ceftriaxone 2 gm q12 hrs for now - Repeat blood Cx to confirm clearance of bacteremia - will deescalate therapy based on sensitivities (to be available tomorrow) - If SCAR is negative, consider CT abd/pelvis w/o contrast to look for a source - Once repeat blood Cx neg for 72 hrs, a new HD line can be re-inserted will follow Derrick Cody MD Infectious diseases
--- NOTE | 2018-04-04 18:28 | Cat Scan Report ---
CLINICAL INFORMATION: COMPARISON: None. TECHNIQUE: 2.5 mm helical slices were obtained in the skull base to vertex. Following reconstruction, axial reformatted images were reviewed at bone and parenchymal windows. The exam was performed using radiation dose optimization techniques including, but not limited to, automated exposure control, adjustment of the mA and/or kV according to patient size and use of iterative reconstruction technique. FINDINGS: The ventricles, sulci, fissures, and cisterns are moderately enlarged bowel with moderate age-related atrophy. 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 There is no extra-axial fluid collections or masses appreciated. Patchy chronic ischemic changes in the cerebral white matter seen as before. Small old infarcts in the head left caudate nucleus and deep left frontal white matter seen as before. There is no intracerebral hemorrhage, mass effect or edema. Bone windows show no osseous abnormality. IMPRESSION: Moderate atrophy and chronic ischemic changes in deep cerebral white matter again noted. 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 No acute finding Interpreted and Authenticated by: Oleg Vargas 04/04/18
[2018-04-04 20:27] LABS: Blood Urea Nitrogen 21 mg/dl (8-23)
[2018-04-04] MEDS ORDERED: cefTRIAXone 2 GM VIAL ONE (20:52)
[2018-04-04] MEDS ORDERED: hydrALAZINE 20 MG/ML VIAL IV PRN (21:05)
[2018-04-04] MEDS ORDERED: SODIUM PHOSPHATE 45 MMOL/15 ML VIAL IV STA ×2 (21:37→22:17)
[2018-04-04] MEDS: amLODIPine 10 MG TABLET PO SCH (21:50)
[2018-04-04 21:57] LABS: ABG Methemoglobin 0.3 % (0.4-1.5); VBG Base Excess 4.8 (-2.0-2.0); VBG HCO3 25.2 mmol/L (24.0-28.0); VBG Oxygen Saturation 93.6 % (40.0-70.0); VBG PCO2 23.6 mmHg (41.0-51.0); VBG PH 7.65 U (7.32-7.42); VBG PO2 180 mmHg (25-40)
[2018-04-04] MEDS ORDERED: WATER IV ONE (22:00)
[2018-04-04] MEDS ORDERED: POTASSIUM PHOSPHATE IV ONE (22:00)
[2018-04-04] MEDS ORDERED: VANCOMYCIN 1,000 MG in 0.9 % SODIUM CHLORIDE 250 ML IV ONE ×2 (22:00→22:17)
[2018-04-04] MEDS ORDERED: DEXTROSE 5% IV ONE (22:00)
[2018-04-04] MEDS ORDERED: 0.9 % SODIUM CHLORIDE 250 ML IV ONE ×4 (22:11→22:17)
[2018-04-04] MEDS ORDERED: SODIUM PHOSPHATE 30 MMOL in DEXTROSE 5% IN WATER 500 ML IV SCH ×2 (22:15→22:17)
[2018-04-04] MEDS ORDERED: NALOXONE HCL 0.4 MG/ML VIAL IV PRN (22:17)
[2018-04-04] MEDS ORDERED: ALBUTEROL SULFATE 2.5 MG/3 ML NEBULIZER NEB PRN (22:17)
[2018-04-04] MEDS ORDERED: DEXTROSE 31 GM ORAL.SUSP PO PRN (22:17)
[2018-04-04] MEDS ORDERED: oxyCODONE HCL 5 MG TABLET PO PRN (22:17)
[2018-04-04] MEDS ORDERED: ACETAMINOPHEN 325 MG TABLET PO PRN (22:17)
[2018-04-04] MEDS ORDERED: ONDANSETRON 4 MG/2 ML VIAL IV PRN (22:17)
[2018-04-04] MEDS ORDERED: VANCOMYCIN PER PHARMACY IV SCH (22:17)
[2018-04-04] MEDS ORDERED: 0.9 % SODIUM CHLORIDE 400 ML IV STA (22:17)
[2018-04-04] MEDS ORDERED: DEXTROSE 50% 50 ML VIAL IV PRN (22:17)
[2018-04-04] MEDS ORDERED: 0.9 % SODIUM CHLORIDE 750 ML IV STA (23:21)
[2018-04-04] MEDS ORDERED: LORazepam 2 MG/ML VIAL IV ONE (23:21)
[2018-04-05] MEDS: hydrALAZINE 20 MG/ML VIAL IV PRN (00:41)
[2018-04-05 04:26] LABS: ABG Methemoglobin 0.3 % (0.4-1.5); VBG Base Excess 4.8 (-2.0-2.0); VBG HCO3 27.9 mmol/L (24.0-28.0); VBG Oxygen Saturation 85.2 % (40.0-70.0); VBG PCO2 34.8 mmHg (41.0-51.0); VBG PH 7.52 U (7.32-7.42); VBG PO2 54 mmHg (25-40)
[2018-04-05 04:31] LABS: Basophils # (Auto) 0 K/mcL (0.0-0.3); Basophils % (Auto) 0.2 % (0.0-2.0); Eosinophils # (Auto) 0 K/mcL (0.0-0.7); Eosinophils % (Auto) 0.1 % (0.0-7.0); Granulocytes % (Auto) 72.9 % (38.0-78.0); Lymphocytes # (Auto) 1.5 K/mcL (1.5-4.8); Lymphocytes % (Auto) 14.8 % (15.5-49.0); Mean Cell Volume 80.9 fL (80.0-100.0); Mean Corpuscular HGB Conc 32.9 g/dL (31.0-36.0); Mean Corpuscular Hemoglobin 26.6 pg (26.0-34.0); Monocytes # (Auto) 1.2 K/mcL (0.1-0.9); Platelet Count 232 K/mcL (140-440); RBC 3.04 M/mcL (4.50-5.90); Red Cell Distribution Width 16.8 % (11.5-14.5)
[2018-04-05 05:12] LABS: ALT/SGPT 15 U/l (0-40); Albumin 2.3 gm/dL (3.2-5.2); Albumin/Globulin Ratio 0.6 (1.0-2.3); Alkaline Phosphatase 120 U/L (39-117); Bilirubin,Direct < 0.2 mg/dL (0.0-0.3); Blood Urea Nitrogen 24 mg/dl (8-23); Gamma Glutamyl Transpeptidase 70 U/L (8-61)
[2018-04-05] MEDS: 0.9 % SODIUM CHLORIDE 10 ML SYRINGE IV SCH ×3 (06:09→14:45)
--- NOTE | 2018-04-05 06:58 | Internal Med Progress Note ---
Medical - PN: Subj Patient information: Note initiated : 04/05/18 at 6:52 am Service Date, if different from initiated Date: [] Patient: Eb Cornell a 72 y/o M admitted on 04/03/18 for Enterococcus Fecalis Bacteremia . Chief Complaint: [] Interval history: Mr. Cornell is a 72 year old M Who is a difficult historian. He was seen in the ER by his pest control operator after positive blood culture. It grew gram-positive cocci. In trying to gather why the blood culture was done sounds like he had some labs that were done which were abnormal suspect may be he had a white blood cell count that was elevated and the workup included blood cultures as her seem to be no clear source at the time. He has no complaints at this time. Denies any recent sick contacts. However he has been in the hospital recently for an amputation of the right lower extremity. 04/04 Slept well, no events. Plan to get tunneled catheter removed and SCAR done over at [facility]. 04/05 Patient became altered over at [facility] after the after removal of HD cath. Was supposed to go for SCAR but felt to be too compromised. Patient arrived back To [facility] late in the day. Evaluated and found to be mumbling and following minimal commands. Vital signs are stable. A stat CT brain was ordered which showed Moderate atrophy throughout with chronic ischemic changes throughout as well as some remote infarcts in the left caudate nucleus and deep left frontal white matter but no acute findings. An ABG was ordered which showed a conflicting numbers with rate extremely low oxygen but did not cooperate with his pulse ox as well as a very high pH and low CO2. The machine was calibrated rated and a repeat draw was done which revealed an oxygen that cooperated with the pulse ox, however his pH was still high and his CO2 was low. There was a concernn for a lab error. However further investigation included a chemistry panel which showed a little bit low chloride as well as a low phosphorus other than that it was unremarkable. And repeat venous blood gas was drawn which continued to show a high pH which is just minimally improved as well as a low CO2. Patient did get dialysis today. Discussed case with pest control operator. We gave the patient IV fluid and also replaced his phosphorus. And ordered follow- up VBG after fluids which was done the next morning. This morning the patient was still quite confused and lethargic at shift change. However when I saw him around midmorning he had started to clear significantly. He was answering questions appropriately. He still cannot tell me where he is at, But seem to be much more clear minded than last night and even this morning. at bedside. Review of Systems: denies headache/fever/chills/nausea/vomiting/chest or abdominal pain/cough/ dyspnea/diarrhea. Otherwise see above. - Constitutional Vitals: Vital Signs Temp Pulse Resp BP Pulse Ox 99.2 F H 116 H 18 147/64 97 04/05/18 03:01 04/04/18 22:10 04/05/18 04:31 04/05/18 04:31 04/05/18 04:31 Period Temp Pulse Resp BP Sys/Robles Pulse Ox Last 24 Hr 98.1 F-100.4 F 71-116 10-24 130-184/64-90 93-100 Intake and Output 04/04/18 04/05/18 04/05/18 21:59 05:59 13:59 Intake Total 550 / 550 Output Total 800 / 800 0 / 0 Balance -800 / -800 550 / 550 Weight 117.254 kg Intake & Output: Intake & Output 04/04/18 04/05/18 04/05/18 21:59 05:59 13:59 Intake Total 550 / 550 Output Total 800 / 800 0 / 0 Balance -800 / -800 550 / 550 Weight 117.254 kg Intake: IV 550 / 550 Sodium Chloride 0.9% 250 ml @ 250 / 250 Wide Open IV BOLUS ONE Rx#: [id number] Output: Urine Catheter Amount 0 / 0 Hemodialysis UF 800 / 800 Other: # Bowel Movements 0 Exam: General: Awake, no acute distress HEENT: EOMI, neck supple CV: Regular with occasional ectopic beat, 2/6 systolic murmur, Pulm: Clear b/l, no wheezing/rhonchi/rales Abd: soft, protuberant, nontender, +BS x4 Ext: no clubbing/cyanosis/edema, amputation right lower extremity Neuro: Answering questions appropriately now, follows commands, still disoriented, moves all extremities Skin: warm/dry Medical - PN: Obj Da - Labs CBC & Chem 7: 04/05/18 04:04 04/05/18 04:04 Labs: Abnormal Lab Results 04/05/18 04/05/18 04/05/18 04:04 04:04 04:04 WBC RBC 3.04 L Hgb 8.1 L Hct 24.6 L RDW 16.8 H MPV Lymph % (Auto) 14.8 L Ward % (Auto) Lymph # (Auto) Ward # (Auto) 1.2 H Seg Neutrophils % Lymphocytes % RBC Morphology Anisocytosis ABG Methemoglobin 0.3 L VBG pH 7.52 H VBG pCO2 34.8 L VBG pO2 54 H VBG O2 Saturation 85.2 H VBG Base Excess 4.8 H Carboxyhemoglobin 4.2 H Total Hemoglobin 8.1 L Chloride BUN 24 H Creatinine 3.9 H Glucose 126 H Calcium 8.1 L Phosphorus GGT 70 H Alkaline Phosphatase 120 H Lactate Dehydrogenase Albumin 2.3 L Globulin 3.9 H Albumin/Globulin Ratio 0.6 L Triglycerides 231 H Urine Protein Urine Glucose (UA) Urine Occult Blood Ur Leukocyte Esterase Urine RBC Urine WBC Ur Squamous Epith Cells Ur Transition Epith Cell Urine Bacteria 04/04/18 04/04/18 04/04/18 21:29 19:40 19:40 WBC RBC Hgb Hct RDW MPV Lymph % (Auto) Ward % (Auto) Lymph # (Auto) Ward # (Auto) Seg Neutrophils % Lymphocytes % RBC Morphology Anisocytosis ABG Methemoglobin 0.3 L VBG pH 7.65 H* VBG pCO2 23.6 L VBG pO2 180 H VBG O2 Saturation 93.6 H VBG Base Excess 4.8 H Carboxyhemoglobin 5.5 H Total Hemoglobin 9.1 L Chloride 95 L BUN Creatinine 3.3 H Glucose 108 H Calcium 8.3 L Phosphorus 1.4 L GGT Alkaline Phosphatase Lactate Dehydrogenase Albumin Globulin Albumin/Globulin Ratio Triglycerides Urine Protein Urine Glucose (UA) Urine Occult Blood Ur Leukocyte Esterase Urine RBC Urine WBC Ur Squamous Epith Cells Ur Transition Epith Cell Urine Bacteria 04/04/18 04/04/18 04/03/18 04:59 04:59 15:55 WBC RBC 2.92 L Hgb 7.9 L Hct 23.9 L RDW 16.5 H MPV Lymph % (Auto) 13.9 L Ward % (Auto) 13.0 H Lymph # (Auto) 1.3 L Ward # (Auto) 1.2 H Seg Neutrophils % Lymphocytes % RBC Morphology Anisocytosis ABG Methemoglobin VBG pH VBG pCO2 VBG pO2 VBG O2 Saturation VBG Base Excess Carboxyhemoglobin Total Hemoglobin Chloride BUN 43 H Creatinine 5.3 H* Glucose 109 H Calcium 8.3 L Phosphorus GGT 74 H Alkaline Phosphatase 130 H Lactate Dehydrogenase 252 H Albumin 2.1 L Globulin 3.9 H Albumin/Globulin Ratio 0.5 L Triglycerides 220 H Urine Protein >=500 A Urine Glucose (UA) 50 A Urine Occult Blood >=1.0 A Ur Leukocyte Esterase 25 A Urine RBC > 182 H Urine WBC 154 H Ur Squamous Epith Cells 12 H Ur Transition Epith Cell 3 H Urine Bacteria Few A 04/03/18 04/03/18 09:22 09:22 WBC 13.7 H RBC 3.40 L Hgb 9.2 L Hct 27.6 L RDW 17.0 H MPV 7.3 L Lymph % (Auto) Ward % (Auto) Lymph # (Auto) Ward # (Auto) Seg Neutrophils % 87 H Lymphocytes % 8 L RBC Morphology Abnorm A Anisocytosis 1+ A ABG Methemoglobin VBG pH VBG pCO2 VBG pO2 VBG O2 Saturation VBG Base Excess Carboxyhemoglobin Total Hemoglobin Chloride BUN 29 H Creatinine 4.2 H Glucose 178 H Calcium 8.3 L Phosphorus GGT Alkaline Phosphatase 175 H Lactate Dehydrogenase Albumin 2.5 L Globulin 4.3 H Albumin/Globulin Ratio 0.6 L Triglycerides Urine Protein Urine Glucose (UA) Urine Occult Blood Ur Leukocyte Esterase Urine RBC Urine WBC Ur Squamous Epith Cells Ur Transition Epith Cell Urine Bacteria Meds: Medications Acetaminophen (Tylenol) 650 mg PO Q6HP PRN PRN Reason: PAIN/FEVER > 101 Albuterol Sulfate (Ventolin) 2.5 mg NEB Q2HP PRN PRN Reason: Shortness Of Breath Amlodipine Besylate (Norvasc) 10 mg PO QHS [facility] Dextrose (Dextrose 50%) 0 ml IV UD PRN PRN Reason: Hypoglycemia Diagnostic Test (Pha) (Accu-Chek) 1 each FS ACHS [facility] Glucose (Insta-Glucose) 15 gm PO PRN PRN PRN Reason: Hypoglycemia Heparin Sodium (Porcine) (Heparin) 5,000 unit SQ Q12 ION Hydralazine HCl (Apresoline) 0 mg IV Q2HP PRN PRN Reason: Hypertension Last Admin: 04/05/18 00:41 Dose: 10 mg Ceftriaxone Sodium 2 gm/ (Dextrose) 50 mls @ 100 mls/hr IV Q12H [facility] Insulin Glargine (Lantus) 15 unit SQ QAM [facility] Insulin Human Lispro (Humalog) 0 unit SQ ACHS [facility]; Protocol Metoprolol Tartrate (Lopressor) 25 mg PO BID [facility] Multivit/Ca Carb/B Cmplx/FA/Prenat (Diatx) 1 tab PO BID [facility] Naloxone HCl (Narcan) 0.1 mg IV Q2MIN PRN PRN Reason: Opiate Reversal Ondansetron HCl (Zofran) 4 mg IV Q6HP PRN PRN Reason: Nausea And Vomiting Oxycodone HCl (Roxicodone) 5 mg PO Q4HP PRN PRN Reason: pain not responding to tylenol Sevelamer Carbonate (Renvela) 1,600 mg PO TIDAC [facility] Sodium Chloride (Saline Flush) 10 ml IV Q8 [facility] Vancomycin HCl (Vancomycin Per Pharmacy) 1 order IV UD ION - ABG Interpretation ABG results: 04/04/18 04/05/18 21:29 04:04 ABG Methemoglobin 0.3 L 0.3 L VBG pH 7.65 H* 7.52 H VBG pCO2 23.6 L 34.8 L VBG pO2 180 H 54 H VBG HCO3 25.2 27.9 VBG Total CO2 26.0 29.0 VBG O2 Saturation 93.6 H 85.2 H VBG Base Excess 4.8 H 4.8 H Medical - PN: A/P - Time Spent With Patient Total time spent is greater than 50% in coordination of care (as documented) at patient's floor/unit and/or counseling patient: - Narrative A/P Narrative: A: *Bacteremia (Enterococcus faecalis): Source unidentified at this time. -Leukocytosis/PCT improved -Tunnel cath removed 04/04 -stool studies no fecal wbc *ESRD: Follows with Dr. 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
[2018-04-05] MEDS: SEVELAMER 800 MG TABLET PO SCH ×3 (07:30→18:59)
[2018-04-05] MEDS: INSULIN LISPRO 1 UNIT/0.01 ML UNIT SQ SCH ×3 (08:41→17:59)
[2018-04-05] MEDS ORDERED: FUROSEMIDE 80 MG TABLET PO SCH (09:00)
--- NOTE | 2018-04-05 10:13 | Cat Scan Report ---
CLINICAL INFORMATION: Sepsis COMPARISON: Chest CT 01/10/2016. TECHNIQUE: 0.625 mm helical slices were obtained from the mid heart through the subtrochanteric regions. Following reconstruction, 2.5 mm sagittal, coronal and axial reformatted images were processed and reviewed at bone and soft tissue windows.The exam was performed using radiation dose optimization techniques including, but not limited to, automated exposure control, adjustment of the mA and/or kV according to patient size and use of iterative reconstruction technique. FINDINGS: Lung bases show moderate scarring or atelectasis in the right middle lobe with minimal scarring or atelectasis in both posterior lower lobes. No definite infiltrates or pleural effusions the lung bases. Visualized heart is moderately enlarged with a small pericardial effusion. Images through the abdomen show the noncontrasted liver is normal in size and configuration without focal lesion. There are multiple small stones within the gallbladder including a few stones sequestered within a phrygian cap. There is no gallbladder wall thickening or pericholecystic fluid supportive of cholecystitis. The intrahepatic and common bile ducts are normal caliber: CBD is 6 mm. There is only nonrotation right kidney noted. A 19 mm simple cyst objects from the anterior cortex of the mid right kidney. An 18 mm indeterminate low-attenuation lesion is seen in the anterior cortex superior pole - right kidney. This could represent a solid lesion. There is slight thickening of the transitional epithelium within the left upper collecting system and proximal ureter. It is, however, poorly evaluated without use of contrast. Mild thickening of the Gerotas' fascia with perinephric stranding and both kidneys. This is commonly seen and typically insignificant, unrelated to pyelonephritis or other renal pathology. The noncontrasted pancreas, adrenal glands spleen and aorta are unremarkable. The stomach, small bowel, large bowel and appendix are normal except for a few sigmoid diverticuli Pelvis show prostate, seminal vesicles and urinary bladder to be normal. There are no significant osseous abnormalities. IMPRESSION: 1. Minimal thickening of the transitional epithelium within the left upper collecting system which is poorly visualized. In the absence of positive UA and urine cultures, this finding should be considered insignificant. No definite source identified for sepsis 2. 18 mm low-attenuation lesion anterior cortex superior pole the right kidney. This could be solid. Suggest renal ultrasound. A 19 mm simple cyst is seen in the anterior cortex mid right kidney which will be concomitantly evaluated with ultrasound. 3. Cholelithiasis, but no CT evidence of cholecystitis. 4. Mild cardiomegaly. Small pericardial effusion is new since the 01/10/[address] Please consider the possibility of myocarditis and or pericarditis Interpreted and Authenticated by: Oleg Vargas 04/05/18
[2018-04-05] MEDS: INSULIN GLARGINE, HUMAN 1 UNIT/0.01 ML SQ SCH (10:45)
[2018-04-05] MEDS: FOLIC ACID/VITAMIN B COMP W-C 1 TAB TABLET PO SCH ×2 (11:17→20:58)
[2018-04-05] MEDS: cefTRIAXone 2 GM in DEXTROSE 5% IN WATER 50 ML IV SCH ×2 (11:17→20:56)
[2018-04-05] MEDS: HEPARIN 5,000 UNIT/ML VIAL SQ SCH ×2 (11:18→20:58)
[2018-04-05] MEDS: METOPROLOL TARTRATE 25 MG TABLET PO SCH ×2 (11:18→20:57)
[2018-04-05] MEDS: 0.9 % SODIUM CHLORIDE 1,000 ML IV SCH (11:24)
--- NOTE | 2018-04-05 11:43 | Nephrology Progress Note ---
Subjective Patient information: Note initiated : 04/05/18 at 11:39 am Service Date, if different from initiated Date: [] Patient: Eb Cornell 72 y/o M admitted on 04/03/18 for Enterococcus Fecalis Bacteremia . Chief Complaint: [] Principal diagnosis: enterococcal bacteremia Interval history: Patient reported to have AMS yesterday when transferred to other facility for SCAR and TCC removal Patient was evaluated with CT brain which showed chronic ischemic changes and old CVA patient then had labs, ABG, venous blood gas showed ph of 7.65 with pco2 of 20 and bicarb of 24 indicating mixed respiratory and metabolic alkalosis. His venous improved to 7.52 this am Given this he was started on IVF, transferred to ICU This am patient continued to have AMS but then this improved somewhat so that patient was alert and oriented to self and place he also is noted to have fever please note that he had net of 800ml removed during dialysis yesterday, he remains anuric Pertinent ROS: unable as patient has AMS Objective - Vital Signs Vital signs: Vital Signs Temp Pulse Pulse Resp BP BP BP 04/05/18 04:31 18 147/64 04/05/18 03:01 99.2 F H 17 152/65 04/05/18 02:01 14 162/69 04/05/18 01:01 17 144/90 04/05/18 00:11 10 L 176/83 04/04/18 23:23 100.4 F H 21 142/84 04/04/18 22:10 99.3 F H 116 H 20 158/90 04/04/18 21:39 160/85 04/04/18 20:00 100.0 F H 98 H 20 184/71 04/04/18 17:30 98.1 F 20 156/72 04/04/18 15:10 98.3 F 71 144/82 04/04/18 14:45 77 144/75 04/04/18 14:30 80 141/78 04/04/18 14:15 80 151/82 04/04/18 14:00 74 143/75 04/04/18 13:45 74 142/78 04/04/18 13:30 80 132/85 04/04/18 13:15 80 141/81 04/04/18 13:00 80 130/74 04/04/18 12:45 86 134/83 04/04/18 12:15 80 130/70 04/04/18 12:00 98.3 F 24 H 130/70 04/04/18 11:50 98.3 F 82 140/82 Pulse Ox 04/05/18 04:31 97 04/05/18 03:01 97 04/05/18 02:01 100 04/05/18 01:01 99 04/05/18 00:11 100 04/04/18 23:23 100 04/04/18 22:10 96 04/04/18 21:39 04/04/18 20:00 98 04/04/18 17:30 99 04/04/18 15:10 04/04/18 14:45 04/04/18 14:30 04/04/18 14:15 04/04/18 14:00 04/04/18 13:45 04/04/18 13:30 04/04/18 13:15 04/04/18 13:00 04/04/18 12:45 04/04/18 12:15 04/04/18 12:00 93 04/04/18 11:50 Intake and Output 04/04/18 04/05/18 04/05/18 21:59 05:59 13:59 Intake Total 550 / 550 1260 / 1260 Output Total 800 / 800 0 / 0 Balance -800 / -800 550 / 550 1260 / 1260 Intake: IV 550 / 550 1260 / 1260 Sodium Chloride 0.9% 250 ml @ 250 / 250 Wide Open IV BOLUS ONE Rx#: [id number] Sodium Chloride 0.9% 750 ml @ 750 / 750 100 mls/hr IV NOW STA Rx#: [id number] Output: Urine Catheter Amount 0 / 0 Hemodialysis UF 800 / 800 Other: # Bowel Movements 0 Weight 258 lb 8 oz Intake & Output: Intake & Output 04/04/18 04/05/18 04/05/18 21:59 05:59 13:59 Intake Total 550 / 550 1260 / 1260 Output Total 800 / 800 0 / 0 Balance -800 / -800 550 / 550 1260 / 1260 Weight 258 lb 8 oz Intake: IV 550 / 550 1260 / 1260 Sodium Chloride 0.9% 250 ml @ 250 / 250 Wide Open IV BOLUS ONE Rx#: [id number] Sodium Chloride 0.9% 750 ml @ 750 / 750 100 mls/hr IV NOW STA Rx#: [id number] Output: Urine Catheter Amount 0 / 0 Hemodialysis UF 800 / 800 Other: # Bowel Movements 0 - General Appearance General appearance: appears started age, chronically ill, frail EENT: mucous membranes dry Neck: no JVD Respiratory: clear Cardiology: mid-systolic murmur, no edema, regular rate, regular rhythm Gastrointestinal: no tenderness, no guarding, no masses Integumentary: warm and dry Neurologic: confused Musculoskeletal: no erythema, no cyanosis Psychiatric: mood/affect appropriate - Lab 04/05/18 04:04 04/05/18 04:04 Most recent lab results Calcium 8.1 mg/dl (8.6-10.4) L 04/05/18 04:04 Phosphorus 4.3 mg/dL (2.7-4.5) 04/05/18 04:04 Magnesium 1.8 mg/dL (1.6-2.5) 04/05/18 04:04 Assessment and Plan (1) Anemia due to chronic disease treated with erythropoietin Status: Acute (2) Acute on chronic renal failure HD done yesterday, no indication for the same today patient will need temp dialysis cath placement (non tunneled cath) tomorrow at [facility] as he will not have culture negative 72 hrs by tomorrow per ID recs to get tunneled cath Mixed respiratory and metabolic alkalosis: metabolic component ? from volume contraction ph improved with IVF will continue with normal saline 75cc/hour given sepsis, poor po intake and no s /o fluid excess on exam Enterococcal bacteremia with unclear source, tcc removed CT scan of abdomen was non contrast, no obvious source detected but patient has gall stones, he also has perinephric stranding anemia of chronic disease and also has low tsat, ferritin at around 650 Hb trending down will resume IV iron today and then give aranesp malnutrition: on nepro I have updated patient's and his daughter Calista Cornell who is a RN with the ongoing clinic issues and treatment plan and answered all possible questions they had I appreciate ID and hospitalist help in managing this patient Status: Acute (3) Positive blood culture Status: Acute
[2018-04-05 15:33] LABS: ABG Methemoglobin 0.3 % (0.4-1.5); VBG Base Excess 2.3 (-2.0-2.0); VBG HCO3 25.4 mmol/L (24.0-28.0); VBG Oxygen Saturation 94.1 % (40.0-70.0); VBG PCO2 32.6 mmHg (41.0-51.0); VBG PH 7.51 U (7.32-7.42); VBG PO2 145 mmHg (25-40); VBG Total CO2 26.4 mmol/L (25.0-29.0)
--- NOTE | 2018-04-05 17:17 | Infectious Disease Prog Note ---
Subjective Patient information: Note initiated : 04/05/18 at 5:07 pm Service Date, if different from initiated Date: [] Patient: Eb Cornell 72 y/o M admitted on 04/03/18 for Enterococcus Fecalis Bacteremia . Chief Complaint: [] Principal diagnosis: enterococcal bacteremia Interval history: Patient developed confusion, altered mental status yesterday after the HD catheter was pulled out. He was supplemented with IV fluids and needed transfer to ICU. The SCAR was postponed given his altered mental status. Patient endorses some diarrhea today. Pt had a low grade fever last night. Pt denies any fever this morning. Objective - Vital Signs Vital signs: Vital Signs Temp Pulse Pulse Resp BP BP BP 04/05/18 14:00 73 13 134/68 04/05/18 13:00 14 143/74 04/05/18 12:00 36.5 C 83 16 145/62 04/05/18 11:15 16 128/62 04/05/18 10:02 16 134/58 04/05/18 09:01 89 13 121/65 04/05/18 08:01 37.0 C 88 16 134/65 04/05/18 07:01 85 19 114/64 04/05/18 06:01 17 133/69 04/05/18 05:35 16 127/66 04/05/18 05:03 96 H 10 L 102/50 04/05/18 05:00 96 H 04/05/18 04:31 18 147/64 04/05/18 03:01 37.3 C H 17 152/65 04/05/18 02:01 14 162/69 04/05/18 01:01 17 144/90 04/05/18 00:11 10 L 176/83 04/04/18 23:23 38.0 C H 21 142/84 04/04/18 22:10 37.4 C H 116 H 20 158/90 04/04/18 21:39 160/85 04/04/18 20:00 37.8 C H 98 H 20 184/71 04/04/18 17:30 36.7 C 20 156/72 Pulse Ox 04/05/18 14:00 99 04/05/18 13:00 96 04/05/18 12:00 97 04/05/18 11:15 98 04/05/18 10:02 98 04/05/18 09:01 97 04/05/18 08:01 96 04/05/18 07:01 95 04/05/18 06:01 04/05/18 05:35 04/05/18 05:03 98 04/05/18 05:00 99 04/05/18 04:31 97 04/05/18 03:01 97 04/05/18 02:01 100 04/05/18 01:01 99 04/05/18 00:11 100 04/04/18 23:23 100 04/04/18 22:10 96 04/04/18 21:39 04/04/18 20:00 98 04/04/18 17:30 99 Intake and Output 04/05/18 04/05/18 04/05/18 05:59 13:59 21:59 Intake Total 550 / 550 1410 / 1410 Output Total 0 / 0 Balance 550 / 550 1410 / 1410 Intake: IV 550 / 550 1310 / 1310 Sodium Chloride 0.9% 250 ml @ 250 / 250 Wide Open IV BOLUS ONE Rx#: [id number] Sodium Chloride 0.9% 750 ml @ 750 / 750 100 mls/hr IV NOW STA Rx#: [id number] Rocephin 2 gm In Dextrose 5% in 50 / 50 Water 50 ml @ 100 mls/hr IV Q12H [facility] Rx#:[id number] Oral 100 / 100 Output: Urine Catheter Amount 0 / 0 Other: Meal Nourishment/Supplement Percent of Meal Consumed Refused # Bowel Movements 0 Intake & Output: Intake & Output 04/05/18 04/05/18 04/05/18 05:59 13:59 21:59 Intake Total 550 / 550 1410 / 1410 Output Total 0 / 0 Balance 550 / 550 1410 / 1410 Intake: IV 550 / 550 1310 / 1310 Sodium Chloride 0.9% 250 ml @ 250 / 250 Wide Open IV BOLUS ONE Rx#: [id number] Sodium Chloride 0.9% 750 ml @ 750 / 750 100 mls/hr IV NOW STA Rx#: [id number] Rocephin 2 gm In Dextrose 5% in 50 / 50 Water 50 ml @ 100 mls/hr IV Q12H [facility] Rx#:[id number] Oral 100 / 100 Output: Urine Catheter Amount 0 / 0 Other: Meal Nourishment/Supplement Percent of Meal Consumed Refused # Bowel Movements 0 - General Appearance General appearance: well-developed Respiratory: clear Cardiology: holosystolic murmur, normal S1, normal S2 Gastrointestinal: normoactive bowel sounds, no tenderness, no guarding, distended Integumentary: ulcer (Has 2 superficial ulcers around the exit site of HD catheter with some purulence) Neurologic: no focal deficit, strength 5/5 - Lab 04/05/18 04:04 04/05/18 04:04 Most recent lab results Calcium 8.1 mg/dl (8.6-10.4) L 04/05/18 04:04 Phosphorus 4.3 mg/dL (2.7-4.5) 04/05/18 04:04 Magnesium 1.8 mg/dL (1.6-2.5) 04/05/18 04:04 Microbiology 04/05/18 05:40 Stool Fecal Leukocyte Stain - Final 04/04/18 23:36 Nose - Both Right and Left MRSA (PCR) - Final 04/03/18 10:00 Blood Blood Culture - Preliminary Gram positive cocci 04/03/18 09:22 Blood Blood Culture - Preliminary Gram positive cocci Medications Active Medications: Acetaminophen (Tylenol) 650 mg PO Q6HP PRN PRN Reason: PAIN/FEVER > 101 Albuterol Sulfate (Ventolin) 2.5 mg NEB Q2HP PRN PRN Reason: Shortness Of Breath Amlodipine Besylate (Norvasc) 10 mg PO QHS [facility] Dextrose (Dextrose 50%) 0 ml IV UD PRN PRN Reason: Hypoglycemia Diagnostic Test (Pha) (Accu-Chek) 1 each FS ACHS [facility] Last Admin: 04/05/18 11:20 Dose: 1 each Admin: 04/05/18 08:30 Dose: 1 each Glucose (Insta-Glucose) 15 gm PO PRN PRN PRN Reason: Hypoglycemia Heparin Sodium (Porcine) (Heparin) 5,000 unit SQ Q12 [facility] Last Admin: 04/05/18 11:18 Dose: 5,000 unit Hydralazine HCl (Apresoline) 0 mg IV Q2HP PRN PRN Reason: Hypertension Last Admin: 04/05/18 00:41 Dose: 10 mg Ceftriaxone Sodium 2 gm/ (Dextrose) 50 mls @ 100 mls/hr IV Q12H I[facility] Last Infusion: 04/05/18 11:47 Dose: 0 mls/hr Admin: 10/11/18 11:17 Dose: 100 mls/hr Sodium Chloride (Sodium Chloride 0.9%) 1,000 mls @ 75 mls/hr IV .[id number] [facility] Last Admin: 04/05/18 11:24 Dose: 75 mls/hr Insulin Glargine (Lantus) 15 unit SQ QAM [facility] Last Admin: 04/05/18 10:45 Dose: 15 unit Insulin Human Lispro (Humalog) 0 unit SQ ACHS [facility]; Protocol Last Admin: 04/05/18 12:45 Dose: Not Given Non-Admin Reason: No Coverage Needed Admin: 04/05/18 08:41 Dose: Not Given Non-Admin Reason: No Coverage Needed Metoprolol Tartrate (Lopressor) 25 mg PO BID [facility] Last Admin: 04/05/18 11:18 Dose: 25 mg Multivit/Ca Carb/B Cmplx/FA/Prenat (Diatx) 1 tab PO BID [facility] Last Admin: 04/05/18 11:17 Dose: 1 tab Naloxone HCl (Narcan) 0.1 mg IV Q2MIN PRN PRN Reason: Opiate Reversal Ondansetron HCl (Zofran) 4 mg IV Q6HP PRN PRN Reason: Nausea And Vomiting Oxycodone HCl (Roxicodone) 5 mg PO Q4HP PRN PRN Reason: pain not responding to tylenol Sevelamer Carbonate (Renvela) 1,600 mg PO TIDAC [facility] Last Admin: 04/05/18 12:45 Dose: Not Given Non-Admin Reason: Patient Refused Admin: 04/05/18 07:30 Dose: Sodium Chloride (Saline Flush) 10 ml IV Q8 [facility] Last Admin: 04/05/18 14:45 Dose: 10 ml Admin: 04/05/18 11:18 Dose: 10 ml Admin: 04/05/18 06:09 Dose: 10 ml Vancomycin HCl (Vancomycin Per Pharmacy) 1 order IV UD [facility] Assessment and Plan - Narrative A/P Narrative: A: 1. Enterococcus fecalis bacteremia (Van A/B gene neg): 2/2 blood Cx from 04/02, 04/03 are positive The source for bacteremia seems unclear, although following might be responsible : - Possible infective endocarditis: pt meets 1 major and 1 minor of modified Dash criteria. TTE (a technically difficult study) was negative. SCAR pending for tomorrow HD catheter removed 2. No sepsis Recommendations: - Pt to undergo SCAR tomorrow - Continue IV Vanc 1 gm after HD. Check levels before HD (target 10-20). Pharmacy to help with dosing - Continue IV Ceftriaxone 2 gm q12 hrs for now - Repeat blood Cx to confirm clearance of bacteremia - Once repeat blood Cx neg for 72 hrs, a new HD line can be re-inserted. Currently blood cultures from 04/05 pending If diarrhea persist, send for Clostridium difficile stool testing will follow Derrick Cody MD Infectious diseases
[2018-04-05 19:47] LABS: Vancomycin,Random 20.8 ug/mL
[2018-04-05] MEDS: amLODIPine 10 MG TABLET PO SCH (20:58)
[2018-04-06] MEDS: 0.9 % SODIUM CHLORIDE 10 ML SYRINGE IV SCH ×5 (02:14→21:04)
[2018-04-06] MEDS: HEPARIN 5,000 UNIT/ML VIAL SQ SCH ×3 (02:18→20:50)
[2018-04-06] MEDS: FOLIC ACID/VITAMIN B COMP W-C 1 TAB TABLET PO SCH ×3 (02:40→20:50)
[2018-04-06] MEDS: METOPROLOL TARTRATE 25 MG TABLET PO SCH ×3 (02:41→20:50)
[2018-04-06] MEDS: amLODIPine 10 MG TABLET PO SCH ×2 (02:42→20:50)
[2018-04-06] MEDS: INSULIN LISPRO 1 UNIT/0.01 ML UNIT SQ SCH ×5 (02:42→21:05)
[2018-04-06] MEDS: 0.9 % SODIUM CHLORIDE 1,000 ML IV SCH ×3 (03:02→22:58)
[2018-04-06 04:53] LABS: Basophils # (Auto) 0 K/mcL (0.0-0.3); Basophils % (Auto) 0.3 % (0.0-2.0); Eosinophils # (Auto) 0 K/mcL (0.0-0.7); Eosinophils % (Auto) 0.4 % (0.0-7.0); Granulocytes % (Auto) 80.4 % (38.0-78.0); Lymphocytes # (Auto) 1.1 K/mcL (1.5-4.8); Lymphocytes % (Auto) 10.7 % (15.5-49.0); Mean Cell Volume 81.4 fL (80.0-100.0); Mean Corpuscular HGB Conc 32.8 g/dL (31.0-36.0); Mean Corpuscular Hemoglobin 26.7 pg (26.0-34.0); Monocytes # (Auto) 0.9 K/mcL (0.1-0.9); Monocytes % (Auto) 8.2 % (1.0-12.0); Platelet Count 246 K/mcL (140-440); RBC 3.16 M/mcL (4.50-5.90); Red Cell Distribution Width 16.4 % (11.5-14.5)
[2018-04-06 05:09] LABS: ALT/SGPT 13 U/l (0-40); Albumin 2.1 gm/dL (3.2-5.2); Albumin/Globulin Ratio 0.6 (1.0-2.3); Alkaline Phosphatase 122 U/L (39-117); Bilirubin,Direct < 0.2 mg/dL (0.0-0.3); Blood Urea Nitrogen 30 mg/dl (8-23); Gamma Glutamyl Transpeptidase 66 U/L (8-61); Uric Acid 5.3 mg/dL (2.5-8.0)
--- NOTE | 2018-04-06 07:21 | Internal Med Progress Note ---
Medical - PN: Subj Patient information: Note initiated : 04/06/18 at 7:17 am Service Date, if different from initiated Date: [] Patient: Eb Cornell a 72 y/o M admitted on 04/03/18 for Enterococcus Fecalis Bacteremia . Chief Complaint: [] Interval history: Mr. Cornell is a 72 year old M Who is a difficult historian. He was seen in the ER by his benzol still operator after positive blood culture. It grew gram-positive cocci. In trying to gather why the blood culture was done sounds like he had some labs that were done which were abnormal suspect may be he had a white blood cell count that was elevated and the workup included blood cultures as her seem to be no clear source at the time. He has no complaints at this time. Denies any recent sick contacts. However he has been in the hospital recently for an amputation of the right lower extremity. 04/04 Slept well, no events. Plan to get tunneled catheter removed and SCAR done [facility]. 04/05 Patient became altered over at [facility] after the after removal of HD cath. Was supposed to go for SCAR but felt to be too compromised. Patient arrived back To Located Within [facility] late in the day. Evaluated and found to be mumbling and following minimal commands. Vital signs are stable. A stat CT brain was ordered which showed Moderate atrophy throughout with chronic ischemic changes throughout as well as some remote infarcts in the left caudate nucleus and deep left frontal white matter but no acute findings. An ABG was ordered which showed a conflicting numbers with rate extremely low oxygen but did not cooperate with his pulse ox as well as a very high pH and low CO2. The machine was calibrated rated and a repeat draw was done which revealed an oxygen that cooperated with the pulse ox, however his pH was still high and his CO2 was low. There was a concernn for a lab error. However further investigation included a chemistry panel which showed a little bit low chloride as well as a low phosphorus other than that it was unremarkable. And repeat venous blood gas was drawn which continued to show a high pH which is just minimally improved as well as a low CO2. Patient did get dialysis today. Discussed case with benzol still operator. We gave the patient IV fluid and also replaced his phosphorus. And ordered follow- up VBG after fluids which was done the next morning. This morning the patient was still quite confused and lethargic at shift change. However when I saw him around midmorning he had started to clear significantly. He was answering questions appropriately. He still cannot tell me where he is at, But seem to be much more clear minded than last night and even this morning. at bedside. 04/06 Per nursing did not sleep well last night, seemed a little bit agitated last night pulling at some lines and wires. Seems pleasant this morning when I talked to him. No new complaints. Still has some confusion answer some questions with appropriately other questions unable to answer correctly Review of Systems: denies headache/fever/chills/nausea/vomiting/chest or abdominal pain/cough/ dyspnea/diarrhea. Otherwise see above. - Constitutional Vitals: Vital Signs Temp Pulse Resp BP Pulse Ox 97.6 F 80 14 144/72 89 L 04/06/18 01:36 04/06/18 04:02 04/06/18 06:00 04/06/18 05:01 04/06/18 04:02 Period Temp Pulse Resp BP Sys/Robles Pulse Ox Last 24 Hr 97.6 F-98.6 F 73-97 8-20 121-163/58-86 89-100 Intake and Output 04/05/18 04/06/18 04/06/18 21:59 05:59 13:59 Intake Total 1000 / 1000 Output Total Balance 999 / 999 Weight 114.532 kg Intake & Output: Intake & Output 04/05/18 04/06/18 04/06/18 21:59 05:59 13:59 Intake Total 1000 / 1000 Output Total Balance 999 / 999 Weight 114.532 kg Intake: IV 1000 / 1000 Sodium Chloride 0.9% 1,000 ml @ 1000 / 1000 75 mls/hr IV .[id number] [facility] Rx#: [id number] Output: # of times incontinent of urine Other: Stool Size Large Stool Color Lucian Colored Stool Consistency Soft # of times incontinent of 1 Bowels Exam: General: Awake, no acute distress HEENT: EOMI, neck supple CV: Regular with occasional ectopic beat, 2/6 systolic murmur, Pulm: Clear b/l, no wheezing/rhonchi/rales Abd: soft, protuberant, nontender, +BS x4 Ext: no clubbing/cyanosis, 1+ LLE edema, amputation right lower extremity Neuro: Oriented to person and to present of [facility], could not tell me the year or place, follows commands, moves all extremities Skin: warm/dry Medical - PN: Obj Da - Labs CBC & Chem 7: 04/06/18 04:11 04/06/18 04:11 Labs: Abnormal Lab Results 04/06/18 04/06/18 04/05/18 04:11 04:11 15:14 WBC RBC 3.16 L Hgb 8.4 L Hct 25.7 L RDW 16.4 H MPV 7.3 L Gran % 80.4 H Lymph % (Auto) 10.7 L [place] % (Auto) Gran # 8.7 H Lymph # (Auto) 1.1 L [place] # (Auto) Seg Neutrophils % Lymphocytes % RBC Morphology Anisocytosis ABG Methemoglobin 0.3 L VBG pH 7.51 H VBG pCO2 32.6 L VBG pO2 145 H VBG O2 Saturation 94.1 H VBG Base Excess 2.3 H Carboxyhemoglobin 5.0 H Total Hemoglobin 7.8 L Chloride Anion Gap 20.0 H BUN 30 H Creatinine 4.8 H Glucose Calcium 7.8 L Phosphorus 5.8 H GGT 66 H Alkaline Phosphatase 122 H Lactate Dehydrogenase 252 H Total Protein 5.5 L Albumin 2.1 L Globulin Albumin/Globulin Ratio 0.6 L Triglycerides 238 H Urine Protein Urine Glucose (UA) Urine Occult Blood Ur Leukocyte Esterase Urine RBC Urine WBC Ur Squamous Epith Cells Ur Transition Epith Cell Urine Bacteria 04/05/18 04/05/18 04/05/18 04:04 04:04 04:04 WBC RBC 3.04 L Hgb 8.1 L Hct 24.6 L RDW 16.8 H MPV Gran % Lymph % (Auto) 14.8 L [place] % (Auto) Gran # Lymph # (Auto) [place] # (Auto) 1.2 H Seg Neutrophils % Lymphocytes % RBC Morphology Anisocytosis ABG Methemoglobin 0.3 L VBG pH 7.52 H VBG pCO2 34.8 L VBG pO2 54 H VBG O2 Saturation 85.2 H VBG Base Excess 4.8 H Carboxyhemoglobin 4.2 H Total Hemoglobin 8.1 L Chloride Anion Gap BUN 24 H Creatinine 3.9 H Glucose 126 H Calcium 8.1 L Phosphorus GGT 70 H Alkaline Phosphatase 120 H Lactate Dehydrogenase Total Protein Albumin 2.3 L Globulin 3.9 H Albumin/Globulin Ratio 0.6 L Triglycerides 231 H Urine Protein Urine Glucose (UA) Urine Occult Blood Ur Leukocyte Esterase Urine RBC Urine WBC Ur Squamous Epith Cells Ur Transition Epith Cell Urine Bacteria 04/04/18 04/04/18 04/04/18 21:29 19:40 19:40 WBC RBC Hgb Hct RDW MPV Gran % Lymph % (Auto) [place] % (Auto) Gran # Lymph # (Auto) [place] # (Auto) Seg Neutrophils % Lymphocytes % RBC Morphology Anisocytosis ABG Methemoglobin 0.3 L VBG pH 7.65 H* VBG pCO2 23.6 L VBG pO2 180 H VBG O2 Saturation 93.6 H VBG Base Excess 4.8 H Carboxyhemoglobin 5.5 H Total Hemoglobin 9.1 L Chloride 95 L Anion Gap BUN Creatinine 3.3 H Glucose 108 H Calcium 8.3 L Phosphorus 1.4 L GGT Alkaline Phosphatase Lactate Dehydrogenase Total Protein Albumin Globulin Albumin/Globulin Ratio Triglycerides Urine Protein Urine Glucose (UA) Urine Occult Blood Ur Leukocyte Esterase Urine RBC Urine WBC Ur Squamous Epith Cells Ur Transition Epith Cell Urine Bacteria 04/04/18 04/04/18 04/03/18 04:59 04:59 15:55 WBC RBC 2.92 L Hgb 7.9 L Hct 23.9 L RDW 16.5 H MPV Gran % Lymph % (Auto) 13.9 L [place] % (Auto) 13.0 H Gran # Lymph # (Auto) 1.3 L [place] # (Auto) 1.2 H Seg Neutrophils % Lymphocytes % RBC Morphology Anisocytosis ABG Methemoglobin VBG pH VBG pCO2 VBG pO2 VBG O2 Saturation VBG Base Excess Carboxyhemoglobin Total Hemoglobin Chloride Anion Gap BUN 43 H Creatinine 5.3 H* Glucose 109 H Calcium 8.3 L Phosphorus GGT 74 H Alkaline Phosphatase 130 H Lactate Dehydrogenase 252 H Total Protein Albumin 2.1 L Globulin 3.9 H Albumin/Globulin Ratio 0.5 L Triglycerides 220 H Urine Protein >=500 A Urine Glucose (UA) 50 A Urine Occult Blood >=1.0 A Ur Leukocyte Esterase 25 A Urine RBC > 182 H Urine WBC 154 H Ur Squamous Epith Cells 12 H Ur Transition Epith Cell 3 H Urine Bacteria Few A 04/03/18 04/03/18 09:22 09:22 WBC 13.7 H RBC 3.40 L Hgb 9.2 L Hct 27.6 L RDW 17.0 H MPV 7.3 L Gran % Lymph % (Auto) [place] % (Auto) Gran # Lymph # (Auto) [place] # (Auto) Seg Neutrophils % 87 H Lymphocytes % 8 L RBC Morphology Abnorm A Anisocytosis 1+ A ABG Methemoglobin VBG pH VBG pCO2 VBG pO2 VBG O2 Saturation VBG Base Excess Carboxyhemoglobin Total Hemoglobin Chloride Anion Gap BUN 29 H Creatinine 4.2 H Glucose 178 H Calcium 8.3 L Phosphorus GGT Alkaline Phosphatase 175 H Lactate Dehydrogenase Total Protein Albumin 2.5 L Globulin 4.3 H Albumin/Globulin Ratio 0.6 L Triglycerides Urine Protein Urine Glucose (UA) Urine Occult Blood Ur Leukocyte Esterase Urine RBC Urine WBC Ur Squamous Epith Cells Ur Transition Epith Cell Urine Bacteria Meds: Medications Acetaminophen (Tylenol) 650 mg PO Q6HP PRN PRN Reason: PAIN/FEVER > 101 Albuterol Sulfate (Ventolin) 2.5 mg NEB Q2HP PRN PRN Reason: Shortness Of Breath Amlodipine Besylate (Norvasc) 10 mg PO QHS [facility] Last Admin: 04/06/18 02:42 Dose: Not Given Dextrose (Dextrose 50%) 0 ml IV UD PRN PRN Reason: Hypoglycemia Diagnostic Test (Pha) (Accu-Chek) 1 each FS ACHS [facility] Last Admin: 04/05/18 21:00 Dose: 1 each Glucose (Insta-Glucose) 15 gm PO PRN PRN PRN Reason: Hypoglycemia Heparin Sodium (Porcine) (Heparin) 5,000 unit SQ Q12 [facility] Last Admin: 04/06/18 02:18 Dose: Not Given Hydralazine HCl (Apresoline) 0 mg IV Q2HP PRN PRN Reason: Hypertension Last Admin: 04/05/18 00:41 Dose: 10 mg Ceftriaxone Sodium 2 gm/ (Dextrose) 50 mls @ 100 mls/hr IV Q12H [facility] Last Admin: 04/05/18 20:56 Dose: 100 mls/hr Sodium Chloride (Sodium Chloride 0.9%) 1,000 mls @ 75 mls/hr IV .[id number] [facility] Last Admin: 04/06/18 03:02 Dose: 75 mls/hr Insulin Glargine (Lantus) 15 unit SQ QAM [facility] Last Admin: 04/05/18 10:45 Dose: 15 unit Insulin Human Lispro (Humalog) 0 unit SQ ACHS [facility]; Protocol Last Admin: 04/06/18 02:42 Dose: Not Given Metoprolol Tartrate (Lopressor) 25 mg PO BID [facility] Last Admin: 04/06/18 02:41 Dose: Not Given Multivit/Ca Carb/B Cmplx/FA/Prenat (Diatx) 1 tab PO BID [facility] Last Admin: 04/06/18 02:40 Dose: Not Given Naloxone HCl (Narcan) 0.1 mg IV Q2MIN PRN PRN Reason: Opiate Reversal Ondansetron HCl (Zofran) 4 mg IV Q6HP PRN PRN Reason: Nausea And Vomiting Oxycodone HCl (Roxicodone) 5 mg PO Q4HP PRN PRN Reason: pain not responding to tylenol Sevelamer Carbonate (Renvela) 1,600 mg PO TIDAC [facility] Last Admin: 04/05/18 18:59 Dose: Not Given Sodium Chloride (Saline Flush) 10 ml IV Q8 [facility] Last Admin: 04/06/18 05:33 Dose: Not Given Vancomycin HCl (Vancomycin Per Pharmacy) 1 order IV UD [facility] - ABG Interpretation ABG results: 04/04/18 04/05/18 04/05/18 21:29 04:04 15:14 ABG Methemoglobin 0.3 L 0.3 L 0.3 L VBG pH 7.65 H* 7.52 H 7.51 H VBG pCO2 23.6 L 34.8 L 32.6 L VBG pO2 180 H 54 H 145 H VBG HCO3 25.2 27.9 25.4 VBG Total CO2 26.0 29.0 26.4 VBG O2 Saturation 93.6 H 85.2 H 94.1 H VBG Base Excess 4.8 H 4.8 H 2.3 H Medical - PN: A/P - Time Spent With Patient Total time spent is greater than 50% in coordination of care (as documented) at patient's floor/unit and/or counseling patient: - Narrative A/P Narrative: A: *Bacteremia (Enterococcus faecalis): Source unidentified at this time. -Leukocytosis/PCT improved -Tunnel cath removed 04/04; CT abd/pelv no acute path -stool studies no fecal wbc *ESRD: Follows with Dr. 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
[2018-04-06] MEDS: SEVELAMER 800 MG TABLET PO SCH ×3 (07:33→17:47)
--- NOTE | 2018-04-06 08:20 | Infectious Disease Prog Note ---
Subjective Patient information: Note initiated : 04/06/18 at 8:20 am Service Date, if different from initiated Date: [] Patient: Eb Cornell 72 y/o M admitted on 04/03/18 for Enterococcus Fecalis Bacteremia . Chief Complaint: [] Principal diagnosis: enterococcal bacteremia Interval history: Patient feels fine. Denies any diarrhea, nausea, vomiting. No fever in last 24 hours. Patient is n.p.o. for his planned SCAR procedure today. Objective Objective Narrative: Soft S1, normal S2 Ejection systolic murmur best heard at right second intercostal space - Vital Signs Vital signs: Vital Signs Temp Pulse Pulse Resp BP Pulse Ox 04/06/18 07:12 17 187/73 04/06/18 07:00 20 04/06/18 06:00 14 04/06/18 05:01 18 144/72 04/06/18 05:00 8 L 04/06/18 04:02 80 15 89 L 04/06/18 04:01 77 163/60 92 04/06/18 04:00 82 11 L 98 04/06/18 03:11 84 12 98 04/06/18 03:10 88 13 161/60 100 04/06/18 03:00 16 04/06/18 01:36 36.4 C 97 H 20 98 04/06/18 01:00 18 04/05/18 20:02 11 L 128/59 04/05/18 20:00 14 04/05/18 19:12 86 20 96 04/05/18 19:11 88 16 138/58 97 04/05/18 19:02 16 04/05/18 19:01 17 144/79 98 04/05/18 18:45 85 17 134/60 99 04/05/18 18:00 16 96 04/05/18 17:02 76 16 137/86 97 04/05/18 16:37 36.6 C 79 13 136/70 100 04/05/18 16:00 97 04/05/18 15:00 16 98 04/05/18 14:00 73 13 134/68 99 04/05/18 13:00 14 143/74 96 04/05/18 12:00 36.5 C 83 16 145/62 97 04/05/18 11:15 16 128/62 98 04/05/18 10:02 16 134/58 98 04/05/18 09:01 89 13 121/65 97 Intake and Output 04/05/18 04/06/18 04/06/18 21:59 05:59 13:59 Intake Total 1000 / 1000 Output Total Balance 999 / 999 Intake: IV 1000 / 1000 Sodium Chloride 0.9% 1,000 ml @ 1000 / 1000 75 mls/hr IV .[id number] [facility] Rx#: [id number] Output: # of times incontinent of urine Other: Stool Size Large Stool Color Lucian Colored Stool Consistency Soft # of times incontinent of 1 Bowels Weight 114.532 kg Intake & Output: Intake & Output 04/05/18 04/06/18 04/06/18 21:59 05:59 13:59 Intake Total 1000 / 1000 Output Total Balance 999 / 999 Weight 114.532 kg Intake: IV 1000 / 1000 Sodium Chloride 0.9% 1,000 ml @ 1000 / 1000 75 mls/hr IV .[id number] [facility] Rx#: [id number] Output: # of times incontinent of urine Other: Stool Size Large Stool Color Lucian Colored Stool Consistency Soft # of times incontinent of 1 Bowels - General Appearance General appearance: well-developed Respiratory: clear Gastrointestinal: normoactive bowel sounds Integumentary: no rash Neurologic: no focal deficit - Lab 04/06/18 04:11 04/06/18 04:11 Most recent lab results Calcium 7.8 mg/dl (8.6-10.4) L 04/06/18 04:11 Phosphorus 5.8 mg/dL (2.7-4.5) H 04/06/18 04:11 Magnesium 1.8 mg/dL (1.6-2.5) 04/06/18 04:11 Microbiology 04/05/18 04:04 Blood Blood Culture - Preliminary 04/05/18 03:56 Blood Blood Culture - Preliminary 04/05/18 05:40 Stool Fecal Leukocyte Stain - Final 04/04/18 23:36 Nose - Both Right and Left MRSA (PCR) - Final 04/03/18 10:00 Blood Blood Culture - Preliminary Gram positive cocci 04/03/18 09:22 Blood Blood Culture - Preliminary Gram positive cocci Medications Active Medications: Acetaminophen (Tylenol) 650 mg PO Q6HP PRN PRN Reason: PAIN/FEVER > 101 Albuterol Sulfate (Ventolin) 2.5 mg NEB Q2HP PRN PRN Reason: Shortness Of Breath Amlodipine Besylate (Norvasc) 10 mg PO QHS [facility] Last Admin: 04/06/18 02:42 Dose: Not Given Non-Admin Reason: Patient Refused Dextrose (Dextrose 50%) 0 ml IV UD PRN PRN Reason: Hypoglycemia Diagnostic Test (Pha) (Accu-Chek) 1 each FS ACHS [facility] Last Admin: 04/06/18 07:23 Dose: 1 each Admin: 04/05/18 21:00 Dose: 1 each Admin: 04/05/18 17:59 Dose: 1 each Admin: 04/05/18 11:20 Dose: 1 each Admin: 04/05/18 08:30 Dose: 1 each Glucose (Insta-Glucose) 15 gm PO PRN PRN PRN Reason: Hypoglycemia Heparin Sodium (Porcine) (Heparin) 5,000 unit SQ Q12 [facility] Last Admin: 04/06/18 02:18 Dose: Not Given Non-Admin Reason: Patient Refused Admin: 04/05/18 11:18 Dose: 5,000 unit Hydralazine HCl (Apresoline) 0 mg IV Q2HP PRN PRN Reason: Hypertension Last Admin: 04/05/18 00:41 Dose: 10 mg Ceftriaxone Sodium 2 gm/ (Dextrose) 50 mls @ 100 mls/hr IV Q12H [facility] Last Admin: 04/05/18 20:56 Dose: 100 mls/hr Infusion: 04/05/18 11:47 Dose: 0 mls/hr Admin: 04/05/18 11:17 Dose: 100 mls/hr Sodium Chloride (Sodium Chloride 0.9%) 1,000 mls @ 75 mls/hr IV .[id number] [facility] Last Admin: 04/06/18 03:02 Dose: 75 mls/hr Infusion: 04/06/18 00:44 Dose: 75 mls/hr Admin: 04/05/18 11:24 Dose: 75 mls/hr Insulin Glargine (Lantus) 15 unit SQ QAM [facility] Last Admin: 04/05/18 10:45 Dose: 15 unit Insulin Human Lispro (Humalog) 0 unit SQ ACHS [facility]; Protocol Last Admin: 04/06/18 07:23 Dose: Not Given Non-Admin Reason: No Coverage Needed Admin: 04/06/18 02:42 Dose: Not Given Non-Admin Reason: No Coverage Needed Admin: 04/05/18 17:59 Dose: Not Given Non-Admin Reason: No Coverage Needed Admin: 04/05/18 12:45 Dose: Not Given Non-Admin Reason: No Coverage Needed Admin: 04/05/18 08:41 Dose: Not Given Non-Admin Reason: No Coverage Needed Metoprolol Tartrate (Lopressor) 25 mg PO BID [facility] Last Admin: 04/06/18 07:29 Dose: 25 mg Admin: 04/06/18 02:41 Dose: Not Given Non-Admin Reason: Patient Refused Admin: 04/05/18 11:18 Dose: 25 mg Multivit/Ca Carb/B Cmplx/FA/Prenat (Diatx) 1 tab PO BID [facility] Last Admin: 04/06/18 02:40 Dose: Not Given Non-Admin Reason: Patient Refused Admin: 04/05/18 11:17 Dose: 1 tab Naloxone HCl (Narcan) 0.1 mg IV Q2MIN PRN PRN Reason: Opiate Reversal Ondansetron HCl (Zofran) 4 mg IV Q6HP PRN PRN Reason: Nausea And Vomiting Oxycodone HCl (Roxicodone) 5 mg PO Q4HP PRN PRN Reason: pain not responding to tylenol Sevelamer Carbonate (Renvela) 1,600 mg PO TIDAC [facility] Last Admin: 04/06/18 07:33 Dose: Not Given Non-Admin Reason: NPO Admin: 04/05/18 18:59 Dose: Not Given Non-Admin Reason: Patient Refused Admin: 04/05/18 12:45 Dose: Not Given Non-Admin Reason: Patient Refused Admin: 04/05/18 07:30 Dose: Sodium Chloride (Saline Flush) 10 ml IV Q8 [facility] Last Admin: 04/06/18 05:33 Dose: Not Given Non-Admin Reason: Continuous IV Admin: 04/06/18 02:14 Dose: Not Given Non-Admin Reason: Continuous IV Admin: 04/05/18 14:45 Dose: 10 ml Admin: 04/05/18 11:18 Dose: 10 ml Admin: 04/05/18 06:09 Dose: 10 ml Vancomycin HCl (Vancomycin Per Pharmacy) 1 order IV UD [facility] Assessment and Plan - Narrative A/P Narrative: A: 1. Enterococcus fecalis bacteremia (Van A/B gene neg): 2/ blood Cx from 04/02, 04/03 are positive, 04/05 blood cultures are negative so far The source for bacteremia seems unclear, although following might be responsible : - Possible infective endocarditis: pt meets 1 major and 1 minor of modified Dash criteria. TTE (a technically difficult study) was negative. SCAR pending for today HD catheter removed on 04/04 2. No sepsis Recommendations: - Continue IV Vanc 1 gm after HD. Random levels checked this morning work 19 ( target 10-20). Check levels before HD. Pharmacy to help with dosing - Continue IV Ceftriaxone 2 gm q12 hrs for now - Repeat blood Cx to confirm clearance of bacteremia - Once repeat blood Cx neg for 72 hrs, a new tunneled HD line can be re- inserted. Currently blood cultures from 04/05 pending will follow Derrick Cody MD Infectious diseases
[2018-04-06] MEDS: cefTRIAXone 2 GM in DEXTROSE 5% IN WATER 50 ML IV SCH ×2 (08:31→20:49)
[2018-04-06] MEDS: hydrALAZINE 20 MG/ML VIAL IV PRN ×2 (08:32→23:12)
--- NOTE | 2018-04-06 08:40 | Nephrology Progress Note ---
Subjective Patient information: Note initiated : 04/06/18 at 8:38 am Eb Cornell is a 30-sxamo-ivm male admitted on 04/03/18 for positive blood cultures which grew enterococcus species. Chief Complaint: Positive blood cultures Principal diagnosis: Acute kidney injury, hemodialysis dependent Interval history: Tunneled hemodialysis catheter removal at [facility] after hemodialysis at [facility] on Pertinent ROS: Weakness Sleepy Objective - Vital Signs Vital signs: Vital Signs Temp Pulse Pulse Resp BP Pulse Ox 04/06/18 07:12 17 187/73 04/06/18 07:00 20 04/06/18 06:00 14 04/06/18 05:01 18 144/72 04/06/18 05:00 8 L 04/06/18 04:02 80 15 89 L 04/06/18 04:01 77 163/60 92 04/06/18 04:00 82 11 L 98 04/06/18 03:11 84 12 98 04/06/18 03:10 88 13 161/60 100 04/06/18 03:00 16 04/06/18 01:36 97.6 F 97 H 20 98 04/06/18 01:00 18 04/05/18 20:02 11 L 128/59 04/05/18 20:00 14 04/05/18 19:12 86 20 96 04/05/18 19:11 88 16 138/58 97 04/05/18 19:02 16 04/05/18 19:01 17 144/79 98 04/05/18 18:45 85 17 134/60 99 04/05/18 18:00 16 96 04/05/18 17:02 76 16 137/86 97 04/05/18 16:37 97.8 F 79 13 136/70 100 04/05/18 16:00 97 04/05/18 15:00 16 98 04/05/18 14:00 73 13 134/68 99 04/05/18 13:00 14 143/74 96 04/05/18 12:00 97.7 F 83 16 145/62 97 04/05/18 11:15 16 128/62 98 04/05/18 10:02 16 134/58 98 04/05/18 09:01 89 13 121/65 97 Intake and Output 04/05/18 04/06/18 04/06/18 21:59 05:59 13:59 Intake Total 50 / 50 1000 / 1000 Output Total Balance 50 / 50 999 / 999 Intake: IV 50 / 50 1000 / 1000 Sodium Chloride 0.9% 1,000 ml @ 1000 / 1000 75 mls/hr IV .[id number] [facility] Rx#: [id number] Rocephin 2 gm In Dextrose 5% in 50 / 50 Water 50 ml @ 100 mls/hr IV Q12H [facility] Rx#:[id number] Output: # of times incontinent of urine Other: Stool Size Large Stool Color Lucian Colored Stool Consistency Soft # of times incontinent of 1 Bowels Weight 252 lb 8 oz Intake & Output: Intake & Output 04/05/18 04/06/18 04/06/18 21:59 05:59 13:59 Intake Total 50 / 50 1000 / 1000 Output Total Balance 50 / 50 999 / 999 Weight 252 lb 8 oz Intake: IV 50 / 50 1000 / 1000 Sodium Chloride 0.9% 1,000 ml @ 1000 / 1000 75 mls/hr IV .[id number] [facility] Rx#: [id number] Rocephin 2 gm In Dextrose 5% in 50 / 50 Water 50 ml @ 100 mls/hr IV Q12H [facility] Rx#:[id number] Output: # of times incontinent of urine Other: Stool Size Large Stool Color Lucian Colored Stool Consistency Soft # of times incontinent of 1 Bowels - General Appearance General appearance: appears started age EENT: mucous membranes moist Neck: supple Respiratory: clear Cardiology: edema Gastrointestinal: no tenderness Integumentary: warm and dry Neurologic: no focal deficit Musculoskeletal: no deformities Psychiatric: mood/affect appropriate, cooperative - Lab 04/06/18 04:11 04/06/18 04:11 Most recent lab results Calcium 7.8 mg/dl (8.6-10.4) L 04/06/18 04:11 Phosphorus 5.8 mg/dL (2.7-4.5) H 04/06/18 04:11 Magnesium 1.8 mg/dL (1.6-2.5) 04/06/18 04:11 Assessment and Plan (1) Acute on chronic renal failure Eb Cornell is a [id number] male with acute kidney injury, likely acute tubular necrosis on chronic kidney disease stage 3 requiring acute hemodialysis at [facility], persistent non-nephrotic range proteinuria, vitamin D deficiency associated with secondary hyperparathyroidism of renal origin, chronic anemia associated with chronic kidney disease, bilateral lower extremity edema, hypertension, diabetes mellitus type 2, admitted on 04/03/18 for positive blood cultures which grew enterococcus species. Acute kidney injury, likely acute tubular necrosis on chronic kidney disease stage 3 requiring acute hemodialysis at [facility]. Progress: Tunneled hemodialysis catheter removal at [facility] after hemodialysis at [facility] on 04/04/18 Plan: Temporary hemodialysis catheter placement and SCAR at [facility] today Anticipate hemodialysis tomorrow Status: Acute Priority: High Qualifiers: Acute renal failure type: with acute tubular necrosis Chronic kidney disease stage: stage 3 (moderate) Qualified Code(s): N17.0 - Acute kidney failure with tubular necrosis; N18.3 - Chronic kidney disease, stage 3 (moderate )
[2018-04-06] MEDS: INSULIN GLARGINE, HUMAN 1 UNIT/0.01 ML SQ SCH (10:39)
[2018-04-06] MEDS: ASPIRIN 81 MG TAB.CHEW PO SCH (17:41)
[2018-04-06 20:05] LABS: HDL Cholesterol 17 mg/dl (>40); LDL Cholesterol,Calculated 105 mg/dl (SEE CHART)
[2018-04-06] MEDS: ATORVASTATIN 20 MG TABLET PO SCH (21:16)
[2018-04-07] MEDS: hydrALAZINE 20 MG/ML VIAL IV PRN ×3 (02:23→16:25)
[2018-04-07] MEDS: 0.9 % SODIUM CHLORIDE 10 ML SYRINGE IV SCH ×3 (05:44→20:58)
[2018-04-07] MEDS ORDERED: MAGNESIUM SULFATE 2 GM/50 ML BAG IV PRN (06:44)
--- NOTE | 2018-04-07 07:07 | Internal Med Progress Note ---
Medical - PN: Subj Patient information: Note initiated : 04/07/18 at 7:05 am Service Date, if different from initiated Date: [] Patient: Eb Cornell a 72 y/o M admitted on 04/03/18 for Enterococcus Fecalis Bacteremia . Chief Complaint: [] Interval history: Mr. Cornell is a 72 year old M Who is a difficult historian. He was seen in the ER by his quality assurance group leader after positive blood culture. It grew gram-positive cocci. In trying to gather why the blood culture was done sounds like he had some labs that were done which were abnormal suspect may be he had a white blood cell count that was elevated and the workup included blood cultures as her seem to be no clear source at the time. He has no complaints at this time. Denies any recent sick contacts. However he has been in the hospital recently for an amputation of the right lower extremity. 04/04 Slept well, no events. Plan to get tunneled catheter removed and SCAR done over at [facility]. 04/05 Patient became altered over at [facility] after the after removal of HD cath. Was supposed to go for SCAR but felt to be too compromised. Patient arrived back To [facility] late in the day. Evaluated and found to be mumbling and following minimal commands. Vital signs are stable. A stat CT brain was ordered which showed Moderate atrophy throughout with chronic ischemic changes throughout as well as some remote infarcts in the left caudate nucleus and deep left frontal white matter but no acute findings. An ABG was ordered which showed a conflicting numbers with rate extremely low oxygen but did not cooperate with his pulse ox as well as a very high pH and low CO2. The machine was calibrated rated and a repeat draw was done which revealed an oxygen that cooperated with the pulse ox, however his pH was still high and his CO2 was low. There was a concernn for a lab error. However further investigation included a chemistry panel which showed a little bit low chloride as well as a low phosphorus other than that it was unremarkable. And repeat venous blood gas was drawn which continued to show a high pH which is just minimally improved as well as a low CO2. Patient did get dialysis today. Discussed case with quality assurance group leader. We gave the patient IV fluid and also replaced his phosphorus. And ordered follow- up VBG after fluids which was done the next morning. This morning the patient was still quite confused and lethargic at shift change. However when I saw him around midmorning he had started to clear significantly. He was answering questions appropriately. He still cannot tell me where he is at, But seem to be much more clear minded than last night and even this morning. at bedside. 04/06 Per nursing did not sleep well last night, seemed a little bit agitated last night pulling at some lines and wires. Seems pleasant this morning when I talked to him. No new complaints. Still has some confusion answer some questions with appropriately other questions unable to answer correctly 04/07 Patient had SCAR done yesterday with evidence of vegetation on the aortic valve. Also had insertion of a temporary HD catheter in order to get hemodialysis today. No issues overnight. No complaints per the patient. Mentation seems to be a little bit more clear this morning. Getting dialysis. Review of Systems: denies headache/fever/chills/nausea/vomiting/chest or abdominal pain/cough/ dyspnea/diarrhea. Otherwise see above. - Constitutional Vitals: Vital Signs Temp Pulse Resp BP Pulse Ox 98.0 F 83 14 151/68 95 04/07/18 04:00 04/07/18 00:25 04/07/18 07:02 04/07/18 07:02 04/07/18 03:00 Period Temp Pulse Resp BP Sys/Robles Pulse Ox Last 24 Hr 97.5 F-99.7 F 82-89 8-31 140-187/54-107 94-99 Intake and Output 04/06/18 04/07/18 04/07/18 21:59 05:59 13:59 Intake Total 50 / 50 1050 / 1050 Balance 50 / 50 1050 / 1050 Weight 118.887 kg Intake & Output: Intake & Output 04/06/18 04/07/18 04/07/18 21:59 05:59 13:59 Intake Total 50 / 50 1050 / 1050 Balance 50 / 50 1050 / 1050 Weight 118.887 kg Intake: IV 50 / 50 1000 / 1000 Sodium Chloride 0.9% 1,000 ml @ 1000 / 1000 75 mls/hr IV .[id number] [facility] Rx#: [id number] Rocephin 2 gm In Dextrose 5% in 50 / 50 Water 50 ml @ 100 mls/hr IV Q12H [facility] Rx#:[id number] Oral 50 / 50 Other: Urine Appearance Cloudy Urine Color Tea Colored Stool Color Brown Stool Consistency Loose Exam: General: Awake, no acute distress HEENT: EOMI, neck supple CV: Regular with occasional ectopic beat, 2/6 systolic murmur, Pulm: Clear b/l, no wheezing/rhonchi/rales Abd: soft, protuberant, nontender, +BS x4 Ext: no clubbing/cyanosis, trace LLE edema, amputation right lower extremity Neuro: mentation somewhat more clear today, was able to tell me he was at [facility] as opposed to not being able to give any answer before, follows commands, moves all extremities Skin: warm/dry Medical - PN: Obj Da - Labs CBC & Chem 7: 04/07/18 09:07 04/07/18 09:07 Labs: Abnormal Lab Results 04/06/18 04/06/18 04/06/18 19:13 04:11 04:11 RBC 3.16 L Hgb 8.4 L Hct 25.7 L RDW 16.4 H MPV 7.3 L Gran % 80.4 H Lymph % (Auto) 10.7 L Gran # 8.7 H Lymph # (Auto) 1.1 L [place] # (Auto) ABG Methemoglobin VBG pH VBG pCO2 VBG pO2 VBG O2 Saturation VBG Base Excess Carboxyhemoglobin Total Hemoglobin Chloride Anion Gap 20.0 H BUN 30 H Creatinine 4.8 H Glucose Calcium 7.8 L Phosphorus 5.8 H GGT 66 H Alkaline Phosphatase 122 H Lactate Dehydrogenase 252 H Total Protein 5.5 L Albumin 2.1 L Globulin Albumin/Globulin Ratio 0.6 L Triglycerides 215 H 238 H LDL Cholesterol, Calc 105 H Non-HDL Cholesterol 147 H HDL Cholesterol 17 L 04/05/18 04/05/18 04/05/18 15:14 04:04 04:04 RBC Hgb Hct RDW MPV Gran % Lymph % (Auto) Gran # Lymph # (Auto) [place] # (Auto) ABG Methemoglobin 0.3 L 0.3 L VBG pH 7.51 H 7.52 H VBG pCO2 32.6 L 34.8 L VBG pO2 145 H 54 H VBG O2 Saturation 94.1 H 85.2 H VBG Base Excess 2.3 H 4.8 H Carboxyhemoglobin 5.0 H 4.2 H Total Hemoglobin 7.8 L 8.1 L Chloride Anion Gap BUN 24 H Creatinine 3.9 H Glucose 126 H Calcium 8.1 L Phosphorus GGT 70 H Alkaline Phosphatase 120 H Lactate Dehydrogenase Total Protein Albumin 2.3 L Globulin 3.9 H Albumin/Globulin Ratio 0.6 L Triglycerides 231 H LDL Cholesterol, Calc Non-HDL Cholesterol HDL Cholesterol 04/05/18 04/04/18 04/04/18 04:04 21:29 19:40 RBC 3.04 L Hgb 8.1 L Hct 24.6 L RDW 16.8 H MPV Gran % Lymph % (Auto) 14.8 L Gran # Lymph # (Auto) [place] # (Auto) 1.2 H ABG Methemoglobin 0.3 L VBG pH 7.65 H* VBG pCO2 23.6 L VBG pO2 180 H VBG O2 Saturation 93.6 H VBG Base Excess 4.8 H Carboxyhemoglobin 5.5 H Total Hemoglobin 9.1 L Chloride Anion Gap BUN Creatinine Glucose Calcium Phosphorus 1.4 L GGT Alkaline Phosphatase Lactate Dehydrogenase Total Protein Albumin Globulin Albumin/Globulin Ratio Triglycerides LDL Cholesterol, Calc Non-HDL Cholesterol HDL Cholesterol 04/04/18 04/04/18 19:40 04:59 RBC Hgb Hct RDW MPV Gran % Lymph % (Auto) Gran # Lymph # (Auto) [place] # (Auto) ABG Methemoglobin VBG pH VBG pCO2 VBG pO2 VBG O2 Saturation VBG Base Excess Carboxyhemoglobin Total Hemoglobin Chloride 95 L Anion Gap BUN 43 H Creatinine 3.3 H 5.3 H* Glucose 108 H 109 H Calcium 8.3 L 8.3 L Phosphorus GGT 74 H Alkaline Phosphatase 130 H Lactate Dehydrogenase 252 H Total Protein Albumin 2.1 L Globulin 3.9 H Albumin/Globulin Ratio 0.5 L Triglycerides 220 H LDL Cholesterol, Calc Non-HDL Cholesterol HDL Cholesterol Meds: Medications Acetaminophen (Tylenol) 650 mg PO Q6HP PRN PRN Reason: PAIN/FEVER > 101 Albuterol Sulfate (Ventolin) 2.5 mg NEB Q2HP PRN PRN Reason: Shortness Of Breath Amlodipine Besylate (Norvasc) 10 mg PO QHS [facility] Last Admin: 04/06/18 20:50 Dose: 10 mg Aspirin (Aspirin) 81 mg PO DAILY [facility] Last Admin: 04/06/18 17:41 Dose: 81 mg Atorvastatin Calcium (Lipitor) 20 mg PO HS [facility] Last Admin: 04/06/18 21:16 Dose: 20 mg Dextrose (Dextrose 50%) 0 ml IV UD PRN PRN Reason: Hypoglycemia Diagnostic Test (Pha) (Accu-Chek) 1 each FS ACHS [facility] Last Admin: 04/06/18 21:05 Dose: 1 each Glucose (Insta-Glucose) 15 gm PO PRN PRN PRN Reason: Hypoglycemia Heparin Sodium (Porcine) (Heparin) 5,000 unit SQ Q12 [facility] Last Admin: 04/06/18 20:50 Dose: 5,000 unit Hydralazine HCl (Apresoline) 0 mg IV Q2HP PRN PRN Reason: Hypertension Last Admin: 04/07/18 04:26 Dose: 20 mg Ceftriaxone Sodium 2 gm/ (Dextrose) 50 mls @ 100 mls/hr IV Q12H [facility] Last Infusion: 04/06/18 21:20 Dose: Infused Sodium Chloride (Sodium Chloride 0.9%) 1,000 mls @ 75 mls/hr IV .[id number] [facility] Last Admin: 04/06/18 22:58 Dose: 75 mls/hr Magnesium Sulfate (Magnesium Sulfate) 2 gm in 50 mls @ 25 mls/hr IV PRN PRN PRN Reason: Mg = or < 1.7 Insulin Glargine (Lantus) 15 unit SQ QAM [facility] Last Admin: 04/06/18 10:39 Dose: Not Given Insulin Human Lispro (Humalog) 0 unit SQ [facility]; Protocol Last Admin: 04/06/18 21:05 Dose: Not Given Metoprolol Tartrate (Lopressor) 25 mg PO BID [facility] Last Admin: 04/06/18 20:50 Dose: 25 mg Multivit/Ca Carb/B Cmplx/FA/Prenat (Diatx) 1 tab PO BID [facility] Last Admin: 04/06/18 20:50 Dose: 1 tab Naloxone HCl (Narcan) 0.1 mg IV Q2MIN PRN PRN Reason: Opiate Reversal Ondansetron HCl (Zofran) 4 mg IV Q6HP PRN PRN Reason: Nausea And Vomiting Oxycodone HCl (Roxicodone) 5 mg PO Q4HP PRN PRN Reason: pain not responding to tylenol Sevelamer Carbonate (Renvela) 1,600 mg PO TIDAC [facility] Last Admin: 04/06/18 17:47 Dose: 1,600 mg Sodium Chloride (Saline Flush) 10 ml IV Q8 [facility] Last Admin: 04/07/18 05:44 Dose: Not Given Vancomycin HCl (Vancomycin Per Pharmacy) 1 order IV UD [facility] - ABG Interpretation ABG results: 04/04/18 04/05/18 04/05/18 21:29 04:04 15:14 ABG Methemoglobin 0.3 L 0.3 L 0.3 L VBG pH 7.65 H* 7.52 H 7.51 H VBG pCO2 23.6 L 34.8 L 32.6 L VBG pO2 180 H 54 H 145 H VBG HCO3 25.2 27.9 25.4 VBG Total CO2 26.0 29.0 26.4 VBG O2 Saturation 93.6 H 85.2 H 94.1 H VBG Base Excess 4.8 H 4.8 H 2.3 H Medical - PN: A/P - Time Spent With Patient Total time spent is greater than 50% in coordination of care (as documented) at patient's floor/unit and/or counseling patient: - Narrative A/P Narrative: A: *Endocarditis w/Enterococcus faecalis: -Leukocytosis/PCT improved -Tunnel cath removed (04/04), Temp cath placed (04/06) -SCAR (04/06) showing large vegetation on noncoronary cusp of Aortic Valve ( official report pending) *ESRD: Follows with Dr. Schwarz -anuric *Resp and concomitant Clinton contraction alkalosis: improving after IVF bolus *Encephalopathy: metabolic/?infectious with likely underlying vascular dementia (CT brain with Moderate atrophy & chronic ischemic changes throughout w/remote lacunar infarcts in the left caudate nucleus and the deep left frontal white matter - started to note memory issues several years ago) -Mentation has been poor since hospitalization in December with waxing/waning -?septic emboli *h/o CVA's as noted on neuroimaging: states he takes ASA and cholesterol medication at home, but do not see it on our list. 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
--- NOTE | 2018-04-07 07:36 | Nephrology Progress Note ---
Subjective Patient information: Note initiated : 04/07/18 at 7:28 am Eb Cornell is a [id number] male admitted on 04/03/18 for positive blood cultures which grew enterococcus species. Chief Complaint: Positive blood cultures Principal diagnosis: enterococcal bacteremia Interval history: Tunneled hemodialysis catheter removal at [facility] after hemodialysis at [facility] on Temporary hemodialysis catheter placement and SCAR at [facility] on 04/06/18 Pertinent ROS: Weakness Sleepy Confusion Objective - Vital Signs Vital signs: Vital Signs Temp Pulse Pulse Resp BP Pulse Ox 04/07/18 07:02 14 151/68 04/07/18 07:00 8 L 04/07/18 06:02 14 04/07/18 06:01 12 142/62 04/07/18 06:00 12 04/07/18 05:03 20 04/07/18 05:02 14 141/54 04/07/18 05:00 16 04/07/18 04:01 18 04/07/18 04:00 98.0 F 22 178/61 04/07/18 03:01 14 04/07/18 03:00 17 156/63 04/07/18 02:01 17 04/07/18 02:00 15 158/58 04/07/18 01:02 31 H 04/07/18 01:01 20 140/63 04/07/18 01:00 17 04/07/18 00:25 83 94 04/07/18 00:01 99.7 F H 83 19 148/64 96 04/07/18 00:00 82 16 98 04/06/18 23:02 14 04/06/18 23:01 9 L 157/89 04/06/18 22:01 16 156/68 04/06/18 22:00 13 04/06/18 21:01 20 176/85 04/06/18 21:00 17 04/06/18 20:02 97.5 F 18 172/88 04/06/18 20:00 11 L 04/06/18 19:42 89 99 04/06/18 19:02 158/59 04/06/18 18:03 16 04/06/18 18:02 16 174/86 04/06/18 18:00 18 04/06/18 17:40 89 15 144/84 98 04/06/18 17:19 18 04/06/18 11:57 98.2 F 99 04/06/18 11:03 15 04/06/18 11:02 19 155/61 04/06/18 11:00 15 04/06/18 10:37 14 174/62 04/06/18 10:01 11 L 04/06/18 10:00 18 172/107 04/06/18 09:01 19 04/06/18 09:00 28 H 148/76 04/06/18 08:21 15 181/69 04/06/18 08:01 17 180/66 04/06/18 08:00 12 Intake and Output 04/06/18 04/07/18 04/07/18 21:59 05:59 13:59 Intake Total 50 / 50 1050 / 1050 Balance 50 / 50 1050 / 1050 Intake: IV 50 / 50 1000 / 1000 Sodium Chloride 0.9% 1,000 ml @ 1000 / 1000 75 mls/hr IV .[id number] [facility] Rx#: [id number] Rocephin 2 gm In Dextrose 5% in 50 / 50 Water 50 ml @ 100 mls/hr IV Q12H [facility] Rx#:[id number] Oral 50 / 50 Other: Urine Appearance Cloudy Urine Color Tea Colored Stool Color Brown Stool Consistency Loose Weight 262 lb 1.6 oz Intake & Output: Intake & Output 04/06/18 04/07/18 04/07/18 21:59 05:59 13:59 Intake Total 50 / 50 1050 / 1050 Balance 50 / 50 1050 / 1050 Weight 262 lb 1.6 oz Intake: IV 50 / 50 1000 / 1000 Sodium Chloride 0.9% 1,000 ml @ 1000 / 1000 75 mls/hr IV .[id number] [facility] Rx#: [id number] Rocephin 2 gm In Dextrose 5% in 50 / 50 Water 50 ml @ 100 mls/hr IV Q12H [facility] Rx#:[id number] Oral 50 / 50 Other: Urine Appearance Cloudy Urine Color Tea Colored Stool Color Brown Stool Consistency Loose - General Appearance General appearance: chronically ill, fatigue EENT: mucous membranes moist Neck: supple Respiratory: clear Cardiology: edema Gastrointestinal: no tenderness Integumentary: warm and dry Neurologic: confused, disoriented Musculoskeletal: no deformities Psychiatric: cooperative - Lab 04/06/18 04:11 04/06/18 04:11 Most recent lab results Calcium 7.8 mg/dl (8.6-10.4) L 04/06/18 04:11 Phosphorus 5.8 mg/dL (2.7-4.5) H 04/06/18 04:11 Magnesium 1.8 mg/dL (1.6-2.5) 04/06/18 04:11 Assessment and Plan (1) Acute on chronic renal failure Eb Cornell is a 43-[id number]-avh male with acute kidney injury, likely acute tubular necrosis on chronic kidney disease stage 3 requiring acute hemodialysis at [facility], persistent non-nephrotic range proteinuria, vitamin D deficiency associated with secondary hyperparathyroidism of renal origin, chronic anemia associated with chronic kidney disease, bilateral lower extremity edema, hypertension, diabetes mellitus type 2, admitted on 04/03/18 for positive blood cultures which grew enterococcus species. Acute kidney injury, likely acute tubular necrosis on chronic kidney disease stage 3 requiring acute hemodialysis at [facility]. 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 after hemodialysis at [facility] on 04/04/18 Temporary hemodialysis catheter placement and SCAR at [facility] on 04/06/18 Plan: Hemodialysis today ADDENDUM at 8:45: The patient seen and evaluated during hemodialysis. Flows are poor through the catheter. We will try to continue with low flows and positioning. Next hemodialysis likely on Monday. Status: Acute Priority: High Qualifiers: Acute renal failure type: with acute tubular necrosis Chronic kidney disease stage: stage 3 (moderate) Qualified Code(s): N17.0 - Acute kidney failure with tubular necrosis; N18.3 - Chronic kidney disease, stage 3 (moderate )
[2018-04-07] MEDS: INSULIN LISPRO 1 UNIT/0.01 ML UNIT SQ SCH ×4 (08:06→20:56)
[2018-04-07 08:33] LABS: C-Reactive Protein 17.4 mg/dl (0.0-0.8)
[2018-04-07 09:47] LABS: Basophils # (Auto) 0 K/mcL (0.0-0.3); Basophils % (Auto) 0.4 % (0.0-2.0); Eosinophils # (Auto) 0.1 K/mcL (0.0-0.7); Eosinophils % (Auto) 1.2 % (0.0-7.0); Granulocytes % (Auto) 80.6 % (38.0-78.0); Lymphocytes # (Auto) 1.2 K/mcL (1.5-4.8); Lymphocytes % (Auto) 10.7 % (15.5-49.0); Mean Cell Volume 79.8 fL (80.0-100.0); Mean Corpuscular Hemoglobin 26.3 pg (26.0-34.0); Monocytes # (Auto) 0.8 K/mcL (0.1-0.9); Monocytes % (Auto) 7.1 % (1.0-12.0); Platelet Count 293 K/mcL (140-440); Red Cell Distribution Width 17.4 % (11.5-14.5)
[2018-04-07 09:51] LABS: Blood Urea Nitrogen 37 mg/dl (8-23)
[2018-04-07] MEDS: ASPIRIN 81 MG TAB.CHEW PO SCH (10:42)
[2018-04-07] MEDS: HEPARIN 5,000 UNIT/ML VIAL SQ SCH ×2 (10:42→20:58)
[2018-04-07] MEDS: cefTRIAXone 2 GM in DEXTROSE 5% IN WATER 50 ML IV SCH ×2 (10:42→20:58)
[2018-04-07] MEDS: METOPROLOL TARTRATE 25 MG TABLET PO SCH ×2 (10:43→20:57)
[2018-04-07] MEDS: SEVELAMER 800 MG TABLET PO SCH ×3 (10:43→17:12)
[2018-04-07] MEDS: 0.9 % SODIUM CHLORIDE 1,000 ML IV SCH ×2 (10:48→16:32)
[2018-04-07] MEDS: INSULIN GLARGINE, HUMAN 1 UNIT/0.01 ML SQ SCH (11:04)
[2018-04-07 12:28] LABS: Vancomycin,Random 16.5 ug/mL
[2018-04-07] MEDS: FOLIC ACID/VITAMIN B COMP W-C 1 TAB TABLET PO SCH ×2 (13:20→20:57)
[2018-04-07] MEDS: ATORVASTATIN 20 MG TABLET PO SCH (20:57)
[2018-04-07] MEDS: amLODIPine 10 MG TABLET PO SCH (20:57)
[2018-04-08] MEDS: 0.9 % SODIUM CHLORIDE 1,000 ML IV SCH ×4 (00:10→19:00)
[2018-04-08] MEDS: hydrALAZINE 20 MG/ML VIAL IV PRN ×2 (03:06→16:46)
[2018-04-08 06:07] LABS: Basophils # (Auto) 0 K/mcL (0.0-0.3); Basophils % (Auto) 0.3 % (0.0-2.0); Eosinophils # (Auto) 0.2 K/mcL (0.0-0.7); Eosinophils % (Auto) 1.6 % (0.0-7.0); Granulocytes % (Auto) 74.6 % (38.0-78.0); Lymphocytes # (Auto) 1.7 K/mcL (1.5-4.8); Lymphocytes % (Auto) 15.4 % (15.5-49.0); Mean Cell Volume 80.7 fL (80.0-100.0); Mean Corpuscular HGB Conc 32.7 g/dL (31.0-36.0); Mean Corpuscular Hemoglobin 26.4 pg (26.0-34.0); Monocytes # (Auto) 0.9 K/mcL (0.1-0.9); Monocytes % (Auto) 8.1 % (1.0-12.0); Platelet Count 316 K/mcL (140-440); RBC 2.97 M/mcL (4.50-5.90); Red Cell Distribution Width 17.2 % (11.5-14.5)
[2018-04-08] MEDS: 0.9 % SODIUM CHLORIDE 10 ML SYRINGE IV SCH ×3 (06:35→21:23)
[2018-04-08 06:53] LABS: Blood Urea Nitrogen 40 mg/dl (8-23)
--- NOTE | 2018-04-08 07:10 | Nephrology Progress Note ---
Subjective Patient information: Note initiated : 04/08/18 at 7:06 am Eb Cornell is a 48-[id number] male admitted on 04/03/18 for positive blood cultures which grew enterococcus species. Chief Complaint: Positive blood cultures Principal diagnosis: Acute kidney injury, hemodialysis dependent Interval history: Tunneled hemodialysis catheter removal at [facility] after hemodialysis at [facility] on Temporary hemodialysis catheter placement and SCAR at [facility] on 04/06/18 Pertinent ROS: Weakness Confusion, improved No shortness of breath Objective - Vital Signs Vital signs: Vital Signs Temp Pulse Pulse Resp BP BP Pulse Ox 04/08/18 06:02 14 147/66 04/08/18 06:00 14 04/08/18 05:01 87 15 163/66 99 04/08/18 05:00 81 18 96 04/08/18 04:02 97.3 F 15 147/67 04/08/18 04:00 20 04/08/18 03:03 17 04/08/18 03:02 16 176/64 04/08/18 03:00 17 04/08/18 02:02 79 16 152/63 97 04/08/18 02:00 79 15 97 04/08/18 01:05 83 98 04/08/18 01:02 85 16 148/76 97 04/08/18 01:00 87 17 97 04/08/18 00:03 73 8 L 95 04/08/18 00:02 99.2 F H 73 12 147/64 95 04/08/18 00:00 75 10 L 95 04/07/18 23:02 83 15 159/69 97 04/07/18 23:00 83 13 98 04/07/18 22:02 80 21 151/66 98 04/07/18 22:00 81 19 98 04/07/18 21:01 87 13 160/66 98 04/07/18 21:00 85 21 98 04/07/18 20:01 97.9 F 87 19 155/66 95 04/07/18 20:00 87 20 95 04/07/18 19:13 88 97 04/07/18 19:01 19 156/63 04/07/18 19:00 16 04/07/18 18:02 18 04/07/18 18:01 22 156/70 04/07/18 18:00 17 04/07/18 17:02 22 04/07/18 17:01 18 149/57 04/07/18 17:00 20 04/07/18 16:02 15 04/07/18 16:01 15 159/62 04/07/18 16:00 98.0 F 18 98 04/07/18 15:01 15 144/71 04/07/18 15:00 13 04/07/18 14:01 21 159/69 04/07/18 14:00 98.0 F 19 97 04/07/18 13:02 17 161/61 04/07/18 13:00 19 04/07/18 12:33 16 04/07/18 12:32 19 132/67 04/07/18 12:17 18 165/61 04/07/18 12:02 18 161/67 04/07/18 12:00 98.8 F 16 98 04/07/18 11:47 17 153/64 04/07/18 11:32 18 04/07/18 11:31 19 153/62 04/07/18 11:17 15 129/59 04/07/18 11:02 17 145/74 04/07/18 11:00 10 L 04/07/18 10:46 9 L 163/66 04/07/18 10:32 12 152/65 04/07/18 10:17 15 154/64 04/07/18 10:01 13 151/70 04/07/18 10:00 11 L 04/07/18 09:46 10 L 155/52 04/07/18 09:31 17 148/62 04/07/18 09:20 97.9 F 95 H 124/52 04/07/18 09:16 17 124/52 04/07/18 09:01 15 111/57 04/07/18 09:00 95 H 19 111/57 04/07/18 08:47 20 103/65 04/07/18 08:45 98.7 F 97 H 103/65 04/07/18 08:32 18 149/60 04/07/18 08:17 28 H 154/74 04/07/18 08:14 22 153/62 04/07/18 08:02 14 149/56 04/07/18 08:00 98.9 F 83 15 152/62 98 Intake and Output 04/07/18 04/08/18 04/08/18 21:59 05:59 13:59 Intake Total 225 / 225 1050 / 1050 Balance 225 / 225 1050 / 1050 Intake: IV 50 / 50 1000 / 1000 Sodium Chloride 0.9% 1,000 ml @ 1000 / 1000 75 mls/hr IV .[id number] ION Rx#: [id number] Rocephin 2 gm In Dextrose 5% in 50 / 50 Water 50 ml @ 100 mls/hr IV Q12H ION Rx#:[id number] Oral 175 / 175 50 / 50 Other: Meal Dinner Percent of Meal Consumed 50% Feeding Ability Assist with Tray Set Up Weight 267 lb 9.6 oz Intake & Output: Intake & Output 04/07/18 04/08/18 04/08/18 21:59 05:59 13:59 Intake Total 225 / 225 1050 / 1050 Balance 225 / 225 1050 / 1050 Weight 267 lb 9.6 oz Intake: IV 50 / 50 1000 / 1000 Sodium Chloride 0.9% 1,000 ml @ 1000 / 1000 75 mls/hr IV .[id number] I[facility] Rx#: [id number] Rocephin 2 gm In Dextrose 5% in 50 / 50 Water 50 ml @ 100 mls/hr IV Q12H ION Rx#:[id number] Oral 175 / 175 50 / 50 Other: Meal Dinner Percent of Meal Consumed 50% Feeding Ability Assist with Tray Set Up - General Appearance General appearance: chronically ill, fatigue EENT: mucous membranes moist Neck: supple Respiratory: clear Cardiology: edema Gastrointestinal: no tenderness Integumentary: warm and dry Neurologic: no focal deficit, alert and oriented x3 Musculoskeletal: no deformities Psychiatric: mood/affect appropriate, cooperative - Lab 04/08/18 04:00 04/08/18 04:00 Most recent lab results Calcium 8.0 mg/dl (8.6-10.4) L 04/08/18 04:00 Phosphorus 5.8 mg/dL (2.7-4.5) H 04/06/18 04:11 Magnesium 1.8 mg/dL (1.6-2.5) 04/06/18 04:11 Assessment and Plan (1) Acute on chronic renal failure Eb Cornell is a [id number]-vnk male with acute kidney injury, likely acute tubular necrosis on chronic kidney disease stage 3 requiring acute hemodialysis at [facility], persistent non-nephrotic range proteinuria, vitamin D deficiency associated with secondary hyperparathyroidism of renal origin, chronic anemia associated with chronic kidney disease, bilateral lower extremity edema, hypertension, diabetes mellitus type 2, admitted on 04/03/18 for positive blood cultures which grew enterococcus species. Acute kidney injury, likely acute tubular necrosis on chronic kidney disease stage 3 requiring acute hemodialysis at [facility]. 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 Acute encephalopathy, improved Temporary hemodialysis catheter dysfunction Progress: Tunneled hemodialysis catheter removal at [facility] after hemodialysis at [facility] on 04/04/18 Temporary hemodialysis catheter placement and SCAR at [facility] on 04/06/18 Hemodialysis was terminated early due to dialysis catheter dysfunction Plan: Sodium Bicarbonate 1300 mg three times daily ordered for metabolic acidosis Hemodialysis tomorrow, if not possible will need new temporary or tunneled catheter at [facility] client professional antibiotic plan, access and location of antibiotic infusion and placement plan to be discussed with case management and ID physician Status: Acute Priority: High Qualifiers: Acute renal failure type: with acute tubular necrosis Chronic kidney disease stage: stage 3 (moderate) Qualified Code(s): N17.0 - Acute kidney failure with tubular necrosis; N18.3 - Chronic kidney disease, stage 3 (moderate ) (2) Metabolic acidosis As discussed above Status: Acute Priority: Medium
--- NOTE | 2018-04-08 07:24 | Internal Med Progress Note ---
Medical - PN: Subj Patient information: Note initiated : 04/08/18 at 7:19 am Service Date, if different from initiated Date: [] Patient: Eb Cornell a 72 y/o M admitted on 04/03/18 for Enterococcus Fecalis Bacteremia . Chief Complaint: [] Interval history: Mr. Cornell is a 72 year old M Who is a difficult historian. He was seen in the ER by his press tender short goods after positive blood culture. It grew gram-positive cocci. In trying to gather why the blood culture was done sounds like he had some labs that were done which were abnormal suspect may be he had a white blood cell count that was elevated and the workup included blood cultures as her seem to be no clear source at the time. He has no complaints at this time. Denies any recent sick contacts. However he has been in the hospital recently for an amputation of the right lower extremity. 04/04 Slept well, no events. Plan to get tunneled catheter removed and SCAR done over at [facility]. 04/05 Patient became altered over at [facility] after the after removal of HD cath. Was supposed to go for SCAR but felt to be too compromised. Patient arrived back [facility] late in the day. Evaluated and found to be mumbling and following minimal commands. Vital signs are stable. A stat CT brain was ordered which showed Moderate atrophy throughout with chronic ischemic changes throughout as well as some remote infarcts in the left caudate nucleus and deep left frontal white matter but no acute findings. An ABG was ordered which showed a conflicting numbers with rate extremely low oxygen but did not cooperate with his pulse ox as well as a very high pH and low CO2. The machine was calibrated rated and a repeat draw was done which revealed an oxygen that cooperated with the pulse ox, however his pH was still high and his CO2 was low. There was a concernn for a lab error. However further investigation included a chemistry panel which showed a little bit low chloride as well as a low phosphorus other than that it was unremarkable. And repeat venous blood gas was drawn which continued to show a high pH which is just minimally improved as well as a low CO2. Patient did get dialysis today. Discussed case with press tender short goods. We gave the patient IV fluid and also replaced his phosphorus. And ordered follow- up VBG after fluids which was done the next morning. This morning the patient was still quite confused and lethargic at shift change. However when I saw him around midmorning he had started to clear significantly. He was answering questions appropriately. He still cannot tell me where he is at, But seem to be much more clear minded than last night and even this morning. at bedside. 04/06 Per nursing did not sleep well last night, seemed a little bit agitated last night pulling at some lines and wires. Seems pleasant this morning when I talked to him. No new complaints. Still has some confusion answer some questions with appropriately other questions unable to answer correctly 04/07 Patient had SCAR done yesterday with evidence of vegetation on the aortic valve. Also had insertion of a temporary HD catheter in order to get hemodialysis today. No issues overnight. No complaints per the patient. Mentation seems to be a little bit more clear this morning. Getting dialysis. 04/08 No overnight events. Patient mentation clear this morning per nursing. Patient has no new complaints. Having difficulty with HD catheter. Review of Systems: denies headache/fever/chills/nausea/vomiting/chest or abdominal pain/cough/ dyspnea/diarrhea. Otherwise see above. - Constitutional Vitals: Vital Signs Temp Pulse Resp BP Pulse Ox 97.3 F 87 14 147/66 99 04/08/18 04:02 04/08/18 05:01 04/08/18 06:02 04/08/18 06:02 04/08/18 05:01 Period Temp Pulse Resp BP Sys/Robles Pulse Ox Last 24 Hr 97.3 F-99.2 F 73-97 8-28 103-176/52-76 95-99 Intake and Output 04/07/18 04/08/18 04/08/18 21:59 05:59 13:59 Intake Total 225 / 225 1050 / 1050 Balance 225 / 225 1050 / 1050 Weight 121.381 kg Intake & Output: Intake & Output 04/07/18 04/08/18 04/08/18 21:59 05:59 13:59 Intake Total 225 / 225 1050 / 1050 Balance 225 / 225 1050 / 1050 Weight 121.381 kg Intake: IV 50 / 50 1000 / 1000 Sodium Chloride 0.9% 1,000 ml @ 1000 / 1000 75 mls/hr IV .[id number] [facility] Rx#: [id number] Rocephin 2 gm In Dextrose 5% in 50 / 50 Water 50 ml @ 100 mls/hr IV Q12H [facility] Rx#:[id number] Oral 175 / 175 50 / 50 Other: Meal Dinner Percent of Meal Consumed 50% Feeding Ability Assist with Tray Set Up Exam: General: Awake, no acute distress HEENT: EOMI, neck supple CV: Regular with occasional ectopic beat, 2/6 systolic murmur, Pulm: Clear b/l, no wheezing/rhonchi/rales Abd: soft, protuberant, nontender, +BS x4 Ext: no clubbing/cyanosis, trace LLE edema, amputation right lower extremity Neuro: mentation improved today, was able to tell me the year and the present [place] and his name. Started to tell me he was at [facility] but knew that was not correct, follows commands, moves all extremities Skin: warm/dry Medical - PN: Obj Da - Labs CBC & Chem 7: 04/08/18 04:00 04/08/18 04:00 Labs: Abnormal Lab Results 04/08/18 04/08/18 04/07/18 04:00 04:00 09:07 WBC 11.2 H RBC 2.97 L Hgb 7.8 L Hct 23.9 L MCV RDW 17.2 H MPV Gran % Lymph % (Auto) 15.4 L Gran # 8.3 H Lymph # (Auto) ESR ABG Methemoglobin VBG pH VBG pCO2 VBG pO2 VBG O2 Saturation VBG Base Excess Carboxyhemoglobin Total Hemoglobin Carbon Dioxide 21 L 18 L Anion Gap 18.0 H BUN 40 H 37 H Creatinine 6.0 H* 5.9 H* Calcium 8.0 L 8.0 L Phosphorus GGT Alkaline Phosphatase Lactate Dehydrogenase C-Reactive Protein Total Protein Albumin Albumin/Globulin Ratio Triglycerides LDL Cholesterol, Calc Non-HDL Cholesterol HDL Cholesterol 04/07/18 04/07/18 04/07/18 09:07 07:25 07:25 WBC 11.3 H RBC 3.10 L Hgb 8.1 L Hct 24.7 L MCV 79.8 L RDW 17.4 H MPV Gran % 80.6 H Lymph % (Auto) 10.7 L Gran # 9.1 H Lymph # (Auto) 1.2 L ESR > 120 H ABG Methemoglobin VBG pH VBG pCO2 VBG pO2 VBG O2 Saturation VBG Base Excess Carboxyhemoglobin Total Hemoglobin Carbon Dioxide Anion Gap BUN Creatinine Calcium Phosphorus GGT Alkaline Phosphatase Lactate Dehydrogenase C-Reactive Protein 17.4 H Total Protein Albumin Albumin/Globulin Ratio Triglycerides LDL Cholesterol, Calc Non-HDL Cholesterol HDL Cholesterol 04/06/18 04/06/18 04/06/18 19:13 04:11 04:11 WBC RBC 3.16 L Hgb 8.4 L Hct 25.7 L MCV RDW 16.4 H MPV 7.3 L Gran % 80.4 H Lymph % (Auto) 10.7 L Gran # 8.7 H Lymph # (Auto) 1.1 L ESR ABG Methemoglobin VBG pH VBG pCO2 VBG pO2 VBG O2 Saturation VBG Base Excess Carboxyhemoglobin Total Hemoglobin Carbon Dioxide Anion Gap 20.0 H BUN 30 H Creatinine 4.8 H Calcium 7.8 L Phosphorus 5.8 H GGT 66 H Alkaline Phosphatase 122 H Lactate Dehydrogenase 252 H C-Reactive Protein Total Protein 5.5 L Albumin 2.1 L Albumin/Globulin Ratio 0.6 L Triglycerides 215 H 238 H LDL Cholesterol, Calc 105 H Non-HDL Cholesterol 147 H HDL Cholesterol 17 L 04/05/18 15:14 WBC RBC Hgb Hct MCV RDW MPV Gran % Lymph % (Auto) Gran # Lymph # (Auto) ESR ABG Methemoglobin 0.3 L VBG pH 7.51 H VBG pCO2 32.6 L VBG pO2 145 H VBG O2 Saturation 94.1 H VBG Base Excess 2.3 H Carboxyhemoglobin 5.0 H Total Hemoglobin 7.8 L Carbon Dioxide Anion Gap BUN Creatinine Calcium Phosphorus GGT Alkaline Phosphatase Lactate Dehydrogenase C-Reactive Protein Total Protein Albumin Albumin/Globulin Ratio Triglycerides LDL Cholesterol, Calc Non-HDL Cholesterol HDL Cholesterol Meds: Medications Acetaminophen (Tylenol) 650 mg PO Q6HP PRN PRN Reason: PAIN/FEVER > 101 Albuterol Sulfate (Ventolin) 2.5 mg NEB Q2HP PRN PRN Reason: Shortness Of Breath Amlodipine Besylate (Norvasc) 10 mg PO QHS [facility] Last Admin: 04/07/18 20:57 Dose: 10 mg Aspirin (Aspirin) 81 mg PO DAILY [facility] Last Admin: 04/07/18 10:42 Dose: 81 mg Atorvastatin Calcium (Lipitor) 20 mg PO HS [facility] Last Admin: 04/07/18 20:57 Dose: 20 mg Dextrose (Dextrose 50%) 0 ml IV UD PRN PRN Reason: Hypoglycemia Diagnostic Test (Pha) (Accu-Chek) 1 each FS ACHS [facility] Last Admin: 04/07/18 20:56 Dose: 1 each Glucose (Insta-Glucose) 15 gm PO PRN PRN PRN Reason: Hypoglycemia Heparin Sodium (Porcine) (Heparin) 5,000 unit SQ Q12 [facility] Last Admin: 04/07/18 20:58 Dose: 5,000 unit Hydralazine HCl (Apresoline) 0 mg IV Q2HP PRN PRN Reason: Hypertension Last Admin: 04/08/18 03:06 Dose: 20 mg Ceftriaxone Sodium 2 gm/ (Dextrose) 50 mls @ 100 mls/hr IV Q12H [facility] Last Infusion: 04/07/18 21:30 Dose: Infused Sodium Chloride (Sodium Chloride 0.9%) 1,000 mls @ 75 mls/hr IV .[id number] [facility] Last Admin: 04/08/18 00:10 Dose: 75 mls/hr Magnesium Sulfate (Magnesium Sulfate) 2 gm in 50 mls @ 25 mls/hr IV PRN PRN PRN Reason: Mg = or < 1.7 Insulin Glargine (Lantus) 15 unit SQ QAM [facility] Last Admin: 04/07/18 11:04 Dose: Not Given Insulin Human Lispro (Humalog) 0 unit SQ [facility]; Protocol Last Admin: 04/07/18 20:56 Dose: 1 unit Metoprolol Tartrate (Lopressor) 25 mg PO BID [facility] Last Admin: 04/07/18 20:57 Dose: 25 mg Multivit/Ca Carb/B Cmplx/FA/Prenat (Diatx) 1 tab PO BID [facility] Last Admin: 04/07/18 20:57 Dose: 1 tab Naloxone HCl (Narcan) 0.1 mg IV Q2MIN PRN PRN Reason: Opiate Reversal Ondansetron HCl (Zofran) 4 mg IV Q6HP PRN PRN Reason: Nausea And Vomiting Oxycodone HCl (Roxicodone) 5 mg PO Q4HP PRN PRN Reason: pain not responding to tylenol Sevelamer Carbonate (Renvela) 1,600 mg PO TIDAC [facility] Last Admin: 04/07/18 17:12 Dose: 1,600 mg Sodium Bicarbonate (Sodium Bicarbonate) 1,300 mg PO TID [facility] Sodium Chloride (Saline Flush) 10 ml IV Q8 [facility] Last Admin: 04/08/18 06:35 Dose: Not Given Vancomycin HCl (Vancomycin Per Pharmacy) 1 order IV UD ION - ABG Interpretation ABG results: 04/04/18 04/05/18 04/05/18 21:29 04:04 15:14 ABG Methemoglobin 0.3 L 0.3 L 0.3 L VBG pH 7.65 H* 7.52 H 7.51 H VBG pCO2 23.6 L 34.8 L 32.6 L VBG pO2 180 H 54 H 145 H VBG HCO3 25.2 27.9 25.4 VBG Total CO2 26.0 29.0 26.4 VBG O2 Saturation 93.6 H 85.2 H 94.1 H VBG Base Excess 4.8 H 4.8 H 2.3 H Medical - PN: A/P - Time Spent With Patient Total time spent is greater than 50% in coordination of care (as documented) at patient's floor/unit and/or counseling patient: - Narrative A/P Narrative: A: *Endocarditis w/Enterococcus faecalis: -Leukocytosis/PCT improved -Tunnel cath removed (04/04), Temp cath placed (04/06) -SCAR (04/06) showing large vegetation on noncoronary cusp of Aortic Valve ( official report pending) *Bacteremia: 04/03 & 04/05 cultures growing Enterococcus faecalis *ESRD: Follows with Dr. Schwarz -anuric *Resp and concomitant [place] contraction alkalosis: improved after IVF bolus *Encephalopathy: metabolic/?infectious with likely underlying vascular dementia (CT brain with Moderate atrophy & chronic ischemic changes throughout w/remote lacunar infarcts in the left caudate nucleus and the deep left frontal white matter - started to note memory issues several years ago) -Mentation has been poor since hospitalization in December with waxing/waning -?septic emboli -improving *h/o CVA's as noted on neuroimaging: states he takes ASA and cholesterol medication at home, but do not see it on our list. 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
[2018-04-08] MEDS: cefTRIAXone 2 GM in DEXTROSE 5% IN WATER 50 ML IV SCH ×2 (09:40→21:22)
[2018-04-08] MEDS: HEPARIN 5,000 UNIT/ML VIAL SQ SCH ×2 (09:42→21:22)
[2018-04-08] MEDS: METOPROLOL TARTRATE 25 MG TABLET PO SCH ×2 (09:42→21:23)
[2018-04-08] MEDS: FOLIC ACID/VITAMIN B COMP W-C 1 TAB TABLET PO SCH ×2 (09:42→21:23)
[2018-04-08] MEDS: SODIUM BICARBONATE 650 MG TABLET PO SCH ×3 (09:42→21:23)
[2018-04-08] MEDS: ASPIRIN 81 MG TAB.CHEW PO SCH (09:42)
[2018-04-08] MEDS: INSULIN GLARGINE, HUMAN 1 UNIT/0.01 ML SQ SCH (09:43)
[2018-04-08] MEDS: SEVELAMER 800 MG TABLET PO SCH ×3 (09:43→16:46)
[2018-04-08] MEDS: INSULIN LISPRO 1 UNIT/0.01 ML UNIT SQ SCH ×4 (09:45→21:22)
[2018-04-08] MEDS ORDERED: METOPROLOL TARTRATE 25 MG TABLET PO ONE (10:20)
[2018-04-08] MEDS: amLODIPine 10 MG TABLET PO SCH (21:23)
[2018-04-08] MEDS: ATORVASTATIN 20 MG TABLET PO SCH (21:23)
[2018-04-09] MEDS: hydrALAZINE 20 MG/ML VIAL IV PRN ×2 (00:20→06:50)
[2018-04-09] MEDS: 0.9 % SODIUM CHLORIDE 10 ML SYRINGE IV SCH ×2 (05:14→14:09)
[2018-04-09 05:41] LABS: Mean Corpuscular HGB Conc 32.9 g/dL (31.0-36.0); Mean Corpuscular Hemoglobin 26.6 pg (26.0-34.0); Platelet Count 334 K/mcL (140-440); RBC 3.13 M/mcL (4.50-5.90); Red Cell Distribution Width 17.1 % (11.5-14.5)
[2018-04-09 06:10] LABS: Anisocytosis 1+ (NONE SEEN); Eosinophils % (Manual) 2 % (0-7); Lymphocytes % 9 % (15-49); Monocytes % (Manual) 9 % (1-12); Platelet Estimate NORMAL (NORMAL); RBC Morphology ABNORM (NORMAL); Segmented Neutrophils % 80 % (38-78)
--- NOTE | 2018-04-09 06:14 | Nephrology Progress Note ---
Subjective Patient information: Note initiated : 04/09/18 at 6:11 am Eb Cornell is a [id number] male admitted on 04/03/18 for positive blood cultures which grew enterococcus species. Chief Complaint: Positive blood cultures Principal diagnosis: Acute kidney injury, hemodialysis dependent Interval history: Tunneled hemodialysis catheter removal at [facility] after hemodialysis at [facility] on Temporary hemodialysis catheter placement and SCAR at [facility] on 04/06/18 Pertinent ROS: Weakness Confusion, worse No shortness of breath Objective - Vital Signs Vital signs: Vital Signs Temp Pulse Resp BP Pulse Ox 04/09/18 05:01 15 168/70 04/09/18 05:00 18 04/09/18 04:02 18 04/09/18 04:01 98.4 F 14 150/81 98 04/09/18 04:00 21 04/09/18 03:01 19 163/75 04/09/18 03:00 21 04/09/18 02:02 18 04/09/18 02:01 18 177/69 04/09/18 02:00 14 04/09/18 01:20 78 98 04/09/18 01:01 22 170/74 04/09/18 01:00 12 04/09/18 00:03 12 04/09/18 00:02 97.8 F 17 174/67 98 04/08/18 23:02 11 L 169/69 04/08/18 23:00 16 04/08/18 22:03 24 H 04/08/18 22:02 19 163/103 04/08/18 21:02 16 148/89 04/08/18 20:02 98.6 F 10 L 180/72 98 04/08/18 20:00 14 04/08/18 19:22 83 98 04/08/18 19:03 20 04/08/18 19:02 18 180/77 04/08/18 18:02 17 168/56 04/08/18 17:03 16 158/78 96 04/08/18 16:02 97.2 F 13 160/78 98 04/08/18 15:01 19 164/70 04/08/18 15:00 18 04/08/18 14:01 18 165/79 96 04/08/18 14:00 20 98 04/08/18 13:02 15 04/08/18 13:01 19 146/64 04/08/18 13:00 12 04/08/18 12:02 18 04/08/18 12:01 15 162/71 96 04/08/18 12:00 13 04/08/18 11:32 14 98 04/08/18 11:30 97.0 F 14 04/08/18 11:02 17 04/08/18 11:01 19 170/81 04/08/18 11:00 19 04/08/18 10:02 17 04/08/18 10:01 8 L 160/72 04/08/18 10:00 97.2 F 11 L 04/08/18 09:01 15 154/76 04/08/18 09:00 5 L 04/08/18 08:02 9 L 04/08/18 08:01 15 155/87 04/08/18 08:00 98.7 F 14 98 04/08/18 07:01 22 162/70 04/08/18 07:00 17 Intake and Output 04/08/18 04/09/18 04/09/18 21:59 05:59 13:59 Intake Total 795 / 795 50 / 50 Output Total Balance 794 / 794 50 / 50 Intake: IV 505 / 505 Sodium Chloride 0.9% 1,000 ml @ 455 / 455 75 mls/hr IV .[id number] [facility] Rx#: [id number] Rocephin 2 gm In Dextrose 5% in 50 / 50 Water 50 ml @ 100 mls/hr IV Q12H [facility] Rx#:[id number] Oral 290 / 290 50 / 50 Output: # of times incontinent of urine Other: Meal Dinner Percent of Meal Consumed 25% Feeding Ability Assist with Tray Set Up Weight 270 lb 4.8 oz Intake & Output: Intake & Output 04/08/18 04/09/18 04/09/18 21:59 05:59 13:59 Intake Total 795 / 795 50 / 50 Output Total Balance 794 / 794 50 / 50 Weight 270 lb 4.8 oz Intake: IV 505 / 505 Sodium Chloride 0.9% 1,000 ml @ 455 / 455 75 mls/hr IV .[id number] ION Rx#: [id number] Rocephin 2 gm In Dextrose 5% in 50 / 50 Water 50 ml @ 100 mls/hr IV Q12H [facility] Rx#:[id number] Oral 290 / 290 50 / 50 Output: # of times incontinent of urine Other: Meal Dinner Percent of Meal Consumed 25% Feeding Ability Assist with Tray Set Up - General Appearance General appearance: obese EENT: mucous membranes moist Neck: supple Respiratory: clear Cardiology: edema Gastrointestinal: no tenderness Integumentary: warm and dry Neurologic: confused Musculoskeletal: no deformities Psychiatric: cooperative - Lab 04/09/18 04:19 04/09/18 04:19 Most recent lab results Calcium 8.0 mg/dl (8.6-10.4) L 04/08/18 04:00 Phosphorus 5.8 mg/dL (2.7-4.5) H 04/06/18 04:11 Magnesium 1.8 mg/dL (1.6-2.5) 04/06/18 04:11 Assessment and Plan (1) Acute on chronic renal failure Eb Cornell is a [id number] male with acute kidney injury, likely acute tubular necrosis on chronic kidney disease stage 3 requiring acute hemodialysis at [facility], persistent non-nephrotic range proteinuria, vitamin D deficiency associated with secondary hyperparathyroidism of renal origin, chronic anemia associated with chronic kidney disease, bilateral lower extremity edema, hypertension, diabetes mellitus type 2, admitted on 04/03/18 for positive blood cultures which grew enterococcus species. Acute kidney injury, likely acute tubular necrosis on chronic kidney disease stage 3 requiring acute hemodialysis at [facility]. 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 I will talk to his when she arrives. The patient seen and evaluated during hemodialysis at 10:46. Activase was used for both ports. Prognosis: Very poor. Status: Acute Priority: High Qualifiers: Qualified Code(s): N17.0 - Acute kidney failure with tubular necrosis; N18.3 - Chronic kidney disease, stage 3 (moderate) (2) Metabolic acidosis Plan: Sodium Bicarbonate 1300 mg three times daily ordered for metabolic acidosis Hemodialysis today Status: Acute Priority: Medium
[2018-04-09 06:20] LABS: ALT/SGPT < 5 U/l (0-40); Albumin 2.3 gm/dL (3.2-5.2); Albumin/Globulin Ratio 0.6 (1.0-2.3); Alkaline Phosphatase 127 U/L (39-117); Bilirubin,Direct < 0.2 mg/dL (0.0-0.3); Blood Urea Nitrogen 43 mg/dl (8-23); Gamma Glutamyl Transpeptidase 71 U/L (8-61); Uric Acid 6.8 mg/dL (2.5-8.0)
[2018-04-09 06:32] LABS: Erythrocyte Sedimentation Rate > 120 mm/hr (0-15)
--- NOTE | 2018-04-09 07:11 | Internal Med Progress Note ---
Medical - PN: Subj Patient information: Note initiated : 04/09/18 at 7:07 am Service Date, if different from initiated Date: [] Patient: Eb Cornell a 72 y/o M admitted on 04/03/18 for Enterococcus Fecalis Bacteremia . Chief Complaint: [] Interval history: Mr. Cornell is a 72 year old M Who is a difficult historian. He was seen in the ER by his gas welding machine operator after positive blood culture. It grew gram-positive cocci. In trying to gather why the blood culture was done sounds like he had some labs that were done which were abnormal suspect may be he had a white blood cell count that was elevated and the workup included blood cultures as her seem to be no clear source at the time. He has no complaints at this time. Denies any recent sick contacts. However he has been in the hospital recently for an amputation of the right lower extremity. 04/04 Slept well, no events. Plan to get tunneled catheter removed and SCAR done over at [facility]. 04/05 Patient became altered over at [facility] after the after removal of HD cath. Was supposed to go for SCAR but felt to be too compromised. Patient arrived back To [facility] late in the day. Evaluated and found to be mumbling and following minimal commands. Vital signs are stable. A stat CT brain was ordered which showed Moderate atrophy throughout with chronic ischemic changes throughout as well as some remote infarcts in the left caudate nucleus and deep left frontal white matter but no acute findings. An ABG was ordered which showed a conflicting numbers with rate extremely low oxygen but did not cooperate with his pulse ox as well as a very high pH and low CO2. The machine was calibrated rated and a repeat draw was done which revealed an oxygen that cooperated with the pulse ox, however his pH was still high and his CO2 was low. There was a concernn for a lab error. However further investigation included a chemistry panel which showed a little bit low chloride as well as a low phosphorus other than that it was unremarkable. And repeat venous blood gas was drawn which continued to show a high pH which is just minimally improved as well as a low CO2. Patient did get dialysis today. Discussed case with gas welding machine operator. We gave the patient IV fluid and also replaced his phosphorus. And ordered follow- up VBG after fluids which was done the next morning. This morning the patient was still quite confused and lethargic at shift change. However when I saw him around midmorning he had started to clear significantly. He was answering questions appropriately. He still cannot tell me where he is at, But seem to be much more clear minded than last night and even this morning. at bedside. 04/06 Per nursing did not sleep well last night, seemed a little bit agitated last night pulling at some lines and wires. Seems pleasant this morning when I talked to him. No new complaints. Still has some confusion answer some questions with appropriately other questions unable to answer correctly 04/07 Patient had SCAR done yesterday with evidence of vegetation on the aortic valve. Also had insertion of a temporary HD catheter in order to get hemodialysis today. No issues overnight. No complaints per the patient. Mentation seems to be a little bit more clear this morning. Getting dialysis. 04/08 No overnight events. Patient mentation clear this morning per nursing. Patient has no new complaints. Having difficulty with HD catheter. 04/09 More encephalopathic today, is noted that he was not able to get dialysis on Monday very long. Moving all extremities. But mentation yesterday was pretty good quite a difference today. Unable to gather full review of systems. He does answer some my questions but slowly and not sure how reliable. - Constitutional Vitals: Vital Signs Temp Pulse Resp BP Pulse Ox 98.4 F 78 15 168/70 98 04/09/18 04:01 04/09/18 01:20 04/09/18 05:01 04/09/18 05:01 04/09/18 04:01 Period Temp Pulse Resp BP Sys/Robles Pulse Ox Last 24 Hr 97.0 F-98.7 F 78-83 5-24 146-180/56-103 96-98 Intake and Output 04/08/18 04/09/18 04/09/18 21:59 05:59 13:59 Intake Total 795 / 795 50 / 50 Output Total Balance 794 / 794 50 / 50 Weight 122.606 kg Intake & Output: Intake & Output 04/08/18 04/09/18 04/09/18 21:59 05:59 13:59 Intake Total 795 / 795 50 / 50 Output Total Balance 794 / 794 50 / 50 Weight 122.606 kg Intake: IV 505 / 505 Sodium Chloride 0.9% 1,000 ml @ 455 / 455 75 mls/hr IV .[id number] ION Rx#: [id number] Rocephin 2 gm In Dextrose 5% in 50 / 50 Water 50 ml @ 100 mls/hr IV Q12H [facility] Rx#:[id number] Oral 290 / 290 50 / 50 Output: # of times incontinent of urine Other: Meal Dinner Percent of Meal Consumed 25% Feeding Ability Assist with Tray Set Up Exam: General: drowsy, Awakens, HEENT: EOMI, neck supple CV: Regular with occasional ectopic beat, 2/6 systolic murmur, Pulm: Clear b/l, no wheezing/rhonchi/rales Abd: soft, protuberant, nontender, +BS x4 Ext: no clubbing/cyanosis, trace LLE edema, amputation right lower extremity Neuro: mentation worsened today, moves all extremities, slowly answers some questions but unable to tell how reliable he is at this moment. following some commands. Skin: warm/dry Medical - PN: Obj Da - Labs CBC & Chem 7: 04/09/18 04:19 04/09/18 04:19 Labs: Abnormal Lab Results 04/09/18 04/09/18 04/09/18 04:19 04:19 04:19 WBC 13.2 H RBC 3.13 L Hgb 8.3 L Hct 25.4 L MCV RDW 17.1 H MPV 7.1 L Gran % Lymph % (Auto) Gran # Lymph # (Auto) Seg Neutrophils % 80 H Lymphocytes % 9 L RBC Morphology Abnorm A Anisocytosis 1+ A ESR > 120 H Carbon Dioxide 20 L Anion Gap 18.0 H BUN 43 H Creatinine 6.5 H* Calcium 8.1 L Phosphorus 7.0 H* GGT 71 H Alkaline Phosphatase 127 H C-Reactive Protein 14.0 H Albumin 2.3 L Globulin 3.9 H Albumin/Globulin Ratio 0.6 L Triglycerides 187 H LDL Cholesterol, Calc Non-HDL Cholesterol HDL Cholesterol 04/08/18 04/08/18 04/07/18 04:00 04:00 09:07 WBC 11.2 H RBC 2.97 L Hgb 7.8 L Hct 23.9 L MCV RDW 17.2 H MPV Gran % Lymph % (Auto) 15.4 L Gran # 8.3 H Lymph # (Auto) Seg Neutrophils % Lymphocytes % RBC Morphology Anisocytosis ESR Carbon Dioxide 21 L 18 L Anion Gap 18.0 H BUN 40 H 37 H Creatinine 6.0 H* 5.9 H* Calcium 8.0 L 8.0 L Phosphorus GGT Alkaline Phosphatase C-Reactive Protein Albumin Globulin Albumin/Globulin Ratio Triglycerides LDL Cholesterol, Calc Non-HDL Cholesterol HDL Cholesterol 04/07/18 04/07/18 04/07/18 09:07 07:25 07:25 WBC 11.3 H RBC 3.10 L Hgb 8.1 L Hct 24.7 L MCV 79.8 L RDW 17.4 H MPV Gran % 80.6 H Lymph % (Auto) 10.7 L Gran # 9.1 H Lymph # (Auto) 1.2 L Seg Neutrophils % Lymphocytes % RBC Morphology Anisocytosis ESR > 120 H Carbon Dioxide Anion Gap BUN Creatinine Calcium Phosphorus GGT Alkaline Phosphatase C-Reactive Protein 17.4 H Albumin Globulin Albumin/Globulin Ratio Triglycerides LDL Cholesterol, Calc Non-HDL Cholesterol HDL Cholesterol 04/06/18 19:13 WBC RBC Hgb Hct MCV RDW MPV Gran % Lymph % (Auto) Gran # Lymph # (Auto) Seg Neutrophils % Lymphocytes % RBC Morphology Anisocytosis ESR Carbon Dioxide Anion Gap BUN Creatinine Calcium Phosphorus GGT Alkaline Phosphatase C-Reactive Protein Albumin Globulin Albumin/Globulin Ratio Triglycerides 215 H LDL Cholesterol, Calc 105 H Non-HDL Cholesterol 147 H HDL Cholesterol 17 L Meds: Medications Acetaminophen (Tylenol) 650 mg PO Q6HP PRN PRN Reason: PAIN/FEVER > 101 Albuterol Sulfate (Ventolin) 2.5 mg NEB Q2HP PRN PRN Reason: Shortness Of Breath Amlodipine Besylate (Norvasc) 10 mg PO QHS [facility] Last Admin: 04/08/18 21:23 Dose: 10 mg Aspirin (Aspirin) 81 mg PO DAILY [facility] Last Admin: 04/08/18 09:42 Dose: 81 mg Atorvastatin Calcium (Lipitor) 20 mg PO HS [facility] Last Admin: 04/08/18 21:23 Dose: 20 mg Dextrose (Dextrose 50%) 0 ml IV UD PRN PRN Reason: Hypoglycemia Diagnostic Test (Pha) (Accu-Chek) 1 each FS ACHS [facility] Last Admin: 04/08/18 21:21 Dose: 1 each Glucose (Insta-Glucose) 15 gm PO PRN PRN PRN Reason: Hypoglycemia Heparin Sodium (Porcine) (Heparin) 5,000 unit SQ Q12 [facility] Last Admin: 04/08/18 21:22 Dose: 5,000 unit Hydralazine HCl (Apresoline) 0 mg IV Q2HP PRN PRN Reason: Hypertension Last Admin: 04/09/18 06:50 Dose: 20 mg Ceftriaxone Sodium 2 gm/ (Dextrose) 50 mls @ 100 mls/hr IV Q12H [facility] Last Infusion: 04/08/18 21:53 Dose: Infused Magnesium Sulfate (Magnesium Sulfate) 2 gm in 50 mls @ 25 mls/hr IV PRN PRN PRN Reason: Mg = or < 1.7 Insulin Glargine (Lantus) 15 unit SQ QAM [facility] Last Admin: 04/08/18 09:43 Dose: 15 unit Insulin Human Lispro (Humalog) 0 unit SQ ACHS [facility]; Protocol Last Admin: 04/08/18 21:22 Dose: Not Given Metoprolol Tartrate (Lopressor) 50 mg PO BID [facility] Last Admin: 04/08/18 21:23 Dose: 50 mg Multivit/Ca Carb/B Cmplx/FA/Prenat (Diatx) 1 tab PO BID [facility] Last Admin: 04/08/18 21:23 Dose: 1 tab Naloxone HCl (Narcan) 0.1 mg IV Q2MIN PRN PRN Reason: Opiate Reversal Ondansetron HCl (Zofran) 4 mg IV Q6HP PRN PRN Reason: Nausea And Vomiting Last Admin: 04/09/18 06:49 Dose: 4 mg Oxycodone HCl (Roxicodone) 5 mg PO Q4HP PRN PRN Reason: pain not responding to tylenol Sevelamer Carbonate (Renvela) 1,600 mg PO TIDAC [facility] Last Admin: 04/08/18 16:46 Dose: 1,600 mg Sodium Bicarbonate (Sodium Bicarbonate) 1,300 mg PO TID [facility] Last Admin: 04/08/18 21:23 Dose: 1,300 mg Sodium Chloride (Saline Flush) 10 ml IV Q8 [facility] Last Admin: 04/09/18 05:14 Dose: 10 ml Vancomycin HCl (Vancomycin Per Pharmacy) 1 order IV UD [facility] - ABG Interpretation ABG results: 04/04/18 04/05/18 04/05/18 21:29 04:04 15:14 ABG Methemoglobin 0.3 L 0.3 L 0.3 L VBG pH 7.65 H* 7.52 H 7.51 H VBG pCO2 23.6 L 34.8 L 32.6 L VBG pO2 180 H 54 H 145 H VBG HCO3 25.2 27.9 25.4 VBG Total CO2 26.0 29.0 26.4 VBG O2 Saturation 93.6 H 85.2 H 94.1 H VBG Base Excess 4.8 H 4.8 H 2.3 H Medical - PN: A/P - Time Spent With Patient Total time spent is greater than 50% in coordination of care (as documented) at patient's floor/unit and/or counseling patient: - Narrative A/P Narrative: A: *Endocarditis w/Enterococcus faecalis: -Leukocytosis/PCT improved -Tunnel cath removed (04/04), Temp cath placed (04/06) -SCAR (04/06) showing large vegetation on noncoronary cusp of Aortic valve ( awaiting official report) *Bacteremia: 04/03 (2of2 draws) & 04/05 (1of2 draws) cultures growing Enterococcus faecalis *ESRD: Follows with Dr. Schwarz -anuric *Resp and concomitant [place] contraction alkalosis: improved after IVF bolus *Encephalopathy: metabolic/?infectious with likely underlying vascular dementia (CT brain with Moderate atrophy & chronic ischemic changes throughout w/remote lacunar infarcts in the left caudate nucleus and the deep left frontal white matter - started to note memory issues several years ago) -Mentation has been poor since hospitalization in December with waxing/waning -?septic emboli -worsened today, ?from missing HD since last week as unable to get full HD on monday, vs other *h/o CVA's as noted on neuroimaging: states he takes ASA and cholesterol medication at home, but do not see it on our list. 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: *KIM w/cpap: *Obesity: P: -Continue Rocephin, switch vanco to amp -Abx per ID -Nephro following -Pending repeat blood cultures -pending MRI brain today (not available over weekend) to evaluate for septic emboli (MRI was attempted in past at [facility], however, body habitus precluded at that time) -LP pending -Nephrology and Infectious Disease following -defer IVF's (held last night)/diuretics to Nephro -Trend procalcitonin/ESR/CRP -cont ASA/Statin -cont BB(increased)/norvasc -SSI -PT/OT -ppx: heparin Medical - PN: Qual - VTE Deep Vein Thrombosis/Pulmonary Embolism Present on Admission: No
[2018-04-09] MEDS: SEVELAMER 800 MG TABLET PO SCH ×3 (07:46→17:38)
[2018-04-09] MEDS: INSULIN LISPRO 1 UNIT/0.01 ML UNIT SQ SCH ×3 (07:53→18:07)
[2018-04-09 08:20] LABS: Vancomycin,Random 15.1 ug/mL
[2018-04-09] MEDS ORDERED: ALTEPLASE 2 MG VIAL IV ONE ×2 (09:45→13:45)
[2018-04-09] MEDS: INSULIN GLARGINE, HUMAN 1 UNIT/0.01 ML SQ SCH (10:18)
[2018-04-09] MEDS: cefTRIAXone 2 GM in DEXTROSE 5% IN WATER 50 ML IV SCH (10:19)
[2018-04-09] MEDS: HEPARIN 5,000 UNIT/ML VIAL SQ SCH ×2 (10:19→22:26)
[2018-04-09] MEDS ORDERED: AMPICILLIN SODIUM 2 GM VIAL IV SCH (11:00)
[2018-04-09] MEDS: ASPIRIN 81 MG TAB.CHEW PO SCH (11:16)
[2018-04-09] MEDS: METOPROLOL TARTRATE 25 MG TABLET PO SCH ×2 (11:17→23:24)
[2018-04-09] MEDS: FOLIC ACID/VITAMIN B COMP W-C 1 TAB TABLET PO SCH ×2 (11:17→23:23)
[2018-04-09] MEDS: SODIUM BICARBONATE 650 MG TABLET PO SCH ×3 (11:17→23:24)
--- NOTE | 2018-04-09 11:38 | Infectious Disease Prog Note ---
Subjective Patient information: Note initiated : 04/09/18 at 11:33 am Service Date, if different from initiated Date: [] Patient: Eb Cornell 72 y/o M admitted on 04/03/18 for Enterococcus Fecalis Bacteremia . Chief Complaint: [] Principal diagnosis: Acute kidney injury, hemodialysis dependent Interval history: Patient is slightly confused compared to previous. He could raise his right hand, wave at nurses. Per nursing there has been no fever, diarrhea. There has been few episodes of vomiting, green colored. Physical of the reported problem with his dialysis catheter which has not been functioning properly. Objective Objective Narrative: Drowsy but arousable Oriented to person No thrush The HD catheter in the left neck looks okay Chest clear to auscultation anteriorly with decreased breath sounds at bases S1 soft S2 normal, ejection systolic murmur over right second intercostal space Bowel sounds hypoactive to absent, distended, nontender No edema - Vital Signs Vital signs: Vital Signs Temp Pulse Pulse Resp BP Pulse Ox 04/09/18 11:16 113/75 04/09/18 11:02 99/48 04/09/18 10:46 163/76 04/09/18 10:32 163/82 04/09/18 10:16 157/76 04/09/18 10:02 154/71 04/09/18 09:50 84 163/68 04/09/18 09:46 84 163/68 94 04/09/18 09:31 86 142/80 97 04/09/18 09:30 36.3 C 83 142/80 04/09/18 09:16 150/86 04/09/18 09:01 25 H 165/87 04/09/18 09:00 17 04/09/18 08:02 14 04/09/18 08:01 16 136/73 04/09/18 08:00 36.3 C 26 H 04/09/18 07:02 87 18 98 04/09/18 07:01 87 13 148/79 99 04/09/18 07:00 86 17 99 04/09/18 06:42 179/67 04/09/18 06:41 180/69 04/09/18 06:01 142/110 04/09/18 05:02 15 04/09/18 05:01 15 168/70 04/09/18 05:00 18 04/09/18 04:02 18 10/15/18 04:01 36.9 C 14 150/81 98 04/09/18 04:00 21 04/09/18 03:01 19 163/75 04/09/18 03:00 21 04/09/18 02:02 18 04/09/18 02:01 18 177/69 04/09/18 02:00 14 04/09/18 01:20 78 98 04/09/18 01:01 22 170/74 04/09/18 01:00 12 04/09/18 00:03 12 04/09/18 00:02 36.6 C 17 174/67 98 04/08/18 23:02 11 L 169/69 04/08/18 23:00 16 04/08/18 22:03 24 H 04/08/18 22:02 19 163/103 04/08/18 21:02 16 148/89 04/08/18 20:02 37.0 C 10 L 180/72 98 04/08/18 20:00 14 04/08/18 19:22 83 98 04/08/18 19:03 20 04/08/18 19:02 18 180/77 04/08/18 18:02 17 168/56 04/08/18 17:03 16 158/78 96 04/08/18 16:02 36.2 C 13 160/78 98 04/08/18 15:01 19 164/70 04/08/18 15:00 18 04/08/18 14:01 18 165/79 96 04/08/18 14:00 20 98 04/08/18 13:02 15 04/08/18 13:01 19 146/64 04/08/18 13:00 12 04/08/18 12:02 18 04/08/18 12:01 15 162/71 96 04/08/18 12:00 13 Intake and Output 04/08/18 04/09/18 04/09/18 21:59 05:59 13:59 Intake Total 795 / 795 50 / 50 Output Total Balance 794 / 794 50 / 50 Intake: IV 505 / 505 Sodium Chloride 0.9% 1,000 ml @ 455 / 455 75 mls/hr IV .[id number] [facility] Rx#: [id number] Rocephin 2 gm In Dextrose 5% in 50 / 50 Water 50 ml @ 100 mls/hr IV Q12H [facility] Rx#:[id number] Oral 290 / 290 50 / 50 Output: # of times incontinent of urine Other: Meal Dinner Percent of Meal Consumed 25% Feeding Ability Assist with Tray Set Up Weight 122.606 kg Intake & Output: Intake & Output 04/08/18 04/09/18 04/09/18 21:59 05:59 13:59 Intake Total 795 / 795 50 / 50 Output Total Balance 794 / 794 50 / 50 Weight 122.606 kg Intake: IV 505 / 505 Sodium Chloride 0.9% 1,000 ml @ 455 / 455 75 mls/hr IV .[id number] [facility] Rx#: [id number] Rocephin 2 gm In Dextrose 5% in 50 / 50 Water 50 ml @ 100 mls/hr IV Q12H [facility] Rx#:[id number] Oral 290 / 290 50 / 50 Output: # of times incontinent of urine Other: Meal Dinner Percent of Meal Consumed 25% Feeding Ability Assist with Tray Set Up - General Appearance General appearance: well-developed, well-nourished, chronically ill - Lab 04/09/18 04:19 04/09/18 04:19 Most recent lab results Calcium 8.1 mg/dl (8.6-10.4) L 04/09/18 04:19 Phosphorus 7.0 mg/dL (2.7-4.5) H* 04/09/18 04:19 Magnesium 1.8 mg/dL (1.6-2.5) 04/09/18 04:19 Microbiology 04/08/18 04:00 Blood Blood Culture - Preliminary 04/08/18 00:34 Blood Blood Culture - Preliminary 04/05/18 03:56 Blood Blood Culture - Preliminary 04/06/18 18:41 Urine - Clean Void Mid-Stream Urine Culture - Final 04/05/18 04:04 Blood Blood Culture - Preliminary Gram positive cocci 04/05/18 05:40 Stool Stool Culture - Final 04/05/18 05:40 Stool Hemorrhagic E.coli Culture - Final 04/06/18 22:35 Stool C. difficile GDH Antigen & Toxins - Final 04/03/18 10:00 Blood Blood Culture - Final Enterococcus species 04/03/18 09:22 Blood Blood Culture - Final Enterococcus species 04/05/18 05:40 Stool Fecal Leukocyte Stain - Final 04/04/18 23:36 Nose - Both Right and Left MRSA (PCR) - Final Medications Active Medications: Acetaminophen (Tylenol) 650 mg PO Q6HP PRN PRN Reason: PAIN/FEVER > 101 Albuterol Sulfate (Ventolin) 2.5 mg NEB Q2HP PRN PRN Reason: Shortness Of Breath Amlodipine Besylate (Norvasc) 10 mg PO QHS [facility] Last Admin: 04/08/18 21:23 Dose: 10 mg Admin: 04/07/18 20:57 Dose: 10 mg Admin: 04/06/18 20:50 Dose: 10 mg Admin: 04/06/18 02:42 Dose: Not Given Non-Admin Reason: Patient Refused Aspirin (Aspirin) 81 mg PO DAILY [facility] Last Admin: 04/09/18 11:16 Dose: Admin: 04/08/18 09:42 Dose: 81 mg Admin: 04/07/18 10:42 Dose: 81 mg Admin: 04/06/18 17:41 Dose: 81 mg Atorvastatin Calcium (Lipitor) 20 mg PO [facility] Last Admin: 04/08/18 21:23 Dose: 20 mg Admin: 04/07/18 20:57 Dose: 20 mg Admin: 04/06/18 21:16 Dose: 20 mg Dextrose (Dextrose 50%) 0 ml IV UD PRN PRN Reason: Hypoglycemia Diagnostic Test (Pha) (Accu-Chek) 1 each FS ACHS [facility] Last Admin: 04/09/18 07:53 Dose: 1 each Admin: 04/08/18 21:21 Dose: 1 each Admin: 04/08/18 16:55 Dose: 1 each Admin: 04/08/18 11:16 Dose: 1 each Admin: 04/08/18 08:00 Dose: 1 each Admin: 04/07/18 20:56 Dose: 1 each Admin: 04/07/18 17:22 Dose: 1 each Admin: 04/07/18 13:19 Dose: 1 each Admin: 04/07/18 08:05 Dose: 1 each Admin: 04/06/18 21:05 Dose: 1 each Admin: 04/06/18 17:41 Dose: 1 each Admin: 04/06/18 11:13 Dose: 1 each Admin: 04/06/18 07:23 Dose: 1 each Admin: 04/05/18 21:00 Dose: 1 each Admin: 04/05/18 17:59 Dose: 1 each Admin: 04/05/18 11:20 Dose: 1 each Admin: 04/05/18 08:30 Dose: 1 each Glucose (Insta-Glucose) 15 gm PO PRN PRN PRN Reason: Hypoglycemia Heparin Sodium (Porcine) (Heparin) 5,000 unit SQ Q12 [facility] Last Admin: 04/09/18 10:19 Dose: 5,000 unit Admin: 04/08/18 21:22 Dose: 5,000 unit Admin: 04/08/18 09:42 Dose: 5,000 unit Admin: 04/07/18 20:58 Dose: 5,000 unit Admin: 04/07/18 10:42 Dose: 5,000 unit Admin: 04/06/18 20:50 Dose: 5,000 unit Admin: 04/06/18 08:31 Dose: 5,000 unit Admin: 04/06/18 02:18 Dose: Not Given Non-Admin Reason: Patient Refused Admin: 04/05/18 11:18 Dose: 5,000 unit Hydralazine HCl (Apresoline) 0 mg IV Q2HP PRN PRN Reason: Hypertension Last Admin: 04/09/18 06:50 Dose: 20 mg Admin: 04/09/18 00:20 Dose: 20 mg Admin: 04/08/18 16:46 Dose: 10 mg Admin: 04/08/18 03:06 Dose: 20 mg Admin: 04/07/18 16:25 Dose: 10 mg Admin: 04/07/18 04:26 Dose: 20 mg Admin: 04/07/18 02:23 Dose: 10 mg Comments: BP 158/58 Admin: 04/06/18 23:12 Dose: 10 mg Admin: 04/06/18 08:32 Dose: 20 mg Admin: 04/05/18 00:41 Dose: 10 mg Ceftriaxone Sodium 2 gm/ (Dextrose) 50 mls @ 100 mls/hr IV Q12H [facility] Last Admin: 04/09/18 10:19 Dose: 100 mls/hr Infusion: 04/08/18 21:53 Dose: 0 mls/hr Admin: 04/08/18 21:22 Dose: 100 mls/hr Infusion: 04/08/18 10:10 Dose: 0 mls/hr Admin: 04/08/18 09:40 Dose: 100 mls/hr Infusion: 04/07/18 21:30 Dose: 0 mls/hr Admin: 04/07/18 20:58 Dose: 100 mls/hr Infusion: 04/07/18 11:12 Dose: 0 mls/hr Admin: 04/07/18 10:42 Dose: 100 mls/hr Infusion: 04/06/18 21:20 Dose: 0 mls/hr Admin: 04/06/18 20:49 Dose: 100 mls/hr Infusion: 04/06/18 09:01 Dose: 0 mls/hr Admin: 04/06/18 08:31 Dose: 100 mls/hr Infusion: 04/05/18 21:26 Dose: 100 mls/hr Admin: 04/05/18 20:56 Dose: 100 mls/hr Infusion: 04/05/18 11:47 Dose: 0 mls/hr Admin: 04/05/18 11:17 Dose: 100 mls/hr Magnesium Sulfate (Magnesium Sulfate) 2 gm in 50 mls @ 25 mls/hr IV PRN PRN PRN Reason: Mg = or < 1.7 Ampicillin Sodium 2 gm/ Sodium (Chloride) 100 mls @ 100 mls/hr IV Q12H [facility] Insulin Glargine (Lantus) 15 unit SQ QAM [facility] Last Admin: 04/09/18 10:18 Dose: 15 unit Admin: 04/08/18 09:43 Dose: 15 unit Admin: 04/07/18 11:04 Dose: Admin: 04/06/18 10:39 Dose: Admin: 04/05/18 10:45 Dose: 15 unit Insulin Human Lispro (Humalog) 0 unit SQ ACHS [facility]; Protocol Last Admin: 04/09/18 07:53 Dose: Not Given Non-Admin Reason: No Coverage Needed Admin: 04/08/18 21:22 Dose: Admin: 04/08/18 16:55 Dose: Not Given Non-Admin Reason: Labs Outside of Range Admin: 04/08/18 11:16 Dose: Not Given Non-Admin Reason: Labs Outside of Range Admin: 04/08/18 09:45 Dose: Not Given Non-Admin Reason: Labs Outside of Range Admin: 04/07/18 20:56 Dose: 1 unit Admin: 04/07/18 17:25 Dose: 1 unit Admin: 04/07/18 13:20 Dose: Not Given Non-Admin Reason: No Coverage Needed Admin: 04/07/18 08:06 Dose: Not Given Non-Admin Reason: No Coverage Needed Admin: 04/06/18 21:05 Dose: Admin: 04/06/18 17:52 Dose: Not Given Non-Admin Reason: Labs Outside of Range Admin: 04/06/18 11:14 Dose: Not Given Non-Admin Reason: No Coverage Needed Admin: 04/06/18 07:23 Dose: Not Given Non-Admin Reason: No Coverage Needed Admin: 04/06/18 02:42 Dose: Not Given Non-Admin Reason: No Coverage Needed Admin: 04/05/18 17:59 Dose: Not Given Non-Admin Reason: No Coverage Needed Admin: 04/05/18 12:45 Dose: Not Given Non-Admin Reason: No Coverage Needed Admin: 04/05/18 08:41 Dose: Not Given Non-Admin Reason: No Coverage Needed Metoprolol Tartrate (Lopressor) 50 mg PO BID [facility] Last Admin: 04/09/18 11:17 Dose: Admin: 04/08/18 21:23 Dose: 50 mg Multivit/Ca Carb/B Cmplx/FA/Prenat (Diatx) 1 tab PO BID [facility] Last Admin: 04/09/18 11:17 Dose: Admin: 04/08/18 21:23 Dose: 1 tab Admin: 04/08/18 09:42 Dose: 1 tab Admin: 04/07/18 20:57 Dose: 1 tab Admin: 04/07/18 13:20 Dose: 1 tab Admin: 04/06/18 20:50 Dose: 1 tab Admin: 04/06/18 09:53 Dose: Not Given Non-Admin Reason: NPO Admin: 04/06/18 02:40 Dose: Not Given Non-Admin Reason: Patient Refused Admin: 04/05/18 11:17 Dose: 1 tab Naloxone HCl (Narcan) 0.1 mg IV Q2MIN PRN PRN Reason: Opiate Reversal Ondansetron HCl (Zofran) 4 mg IV Q6HP PRN PRN Reason: Nausea And Vomiting Last Admin: 04/09/18 06:49 Dose: 4 mg Oxycodone HCl (Roxicodone) 5 mg PO Q4HP PRN PRN Reason: pain not responding to tylenol Sevelamer Carbonate (Renvela) 1,600 mg PO TIDAC [facility] Last Admin: 04/09/18 07:46 Dose: Admin: 04/08/18 16:46 Dose: 1,600 mg Admin: 04/08/18 11:16 Dose: 1,600 mg Admin: 04/08/18 09:43 Dose: 1,600 mg Admin: 04/07/18 17:12 Dose: 1,600 mg Admin: 04/07/18 10:43 Dose: 1,600 mg Admin: 04/07/18 10:43 Dose: Admin: 04/06/18 17:47 Dose: 1,600 mg Admin: 04/06/18 11:14 Dose: Not Given Non-Admin Reason: NPO Admin: 04/06/18 07:33 Dose: Not Given Non-Admin Reason: NPO Admin: 04/05/18 18:59 Dose: Not Given Non-Admin Reason: Patient Refused Admin: 04/05/18 12:45 Dose: Not Given Non-Admin Reason: Patient Refused Admin: 04/05/18 07:30 Dose: Sodium Bicarbonate (Sodium Bicarbonate) 1,300 mg PO TID [facility] Admin: 04/09/18 11:17 Dose: Admin: 04/08/18 21:23 Dose: 1,300 mg Admin: 04/08/18 16:46 Dose: 1,300 mg Admin: 04/08/18 09:42 Dose: 1,300 mg Sodium Chloride (Saline Flush) 10 ml IV Q8 [facility] Admin: 04/09/18 05:14 Dose: 10 ml Admin: 04/08/18 21:23 Dose: 10 ml Admin: 04/08/18 14:50 Dose: 10 ml Admin: 04/08/18 06:35 Dose: Not Given Non-Admin Reason: Continuous IV Admin: 04/07/18 20:58 Dose: Not Given Non-Admin Reason: Continuous IV Admin: 04/07/18 15:43 Dose: 10 ml Admin: 04/07/18 05:44 Dose: Not Given Non-Admin Reason: Continuous IV Admin: 04/06/18 21:04 Dose: Not Given Non-Admin Reason: Continuous IV Admin: 04/06/18 14:25 Dose: Admin: 04/06/18 05:33 Dose: Not Given Non-Admin Reason: Continuous IV Admin: 04/06/18 02:14 Dose: Not Given Non-Admin Reason: Continuous IV Admin: 04/05/18 14:45 Dose: 10 ml Admin: 04/05/18 11:18 Dose: 10 ml Admin: 04/05/18 06:09 Dose: 10 ml Assessment and Plan - Narrative A/P Narrative: A: 1. 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 Blood cultures from 04/08- so far Tunneled HD catheter removed on 04/04 -Temporary HD catheter placed 04/06/18 -First line therapy for enterococcal endocarditis is IV ampicillin with ceftriaxone for synergy. Although we did vancomycin in the last few days, I think we should be able to do IV ampicillin with ongoing dialysis as it would prevent fluid overload [secondary to amount of IV fluids and sodium given along with ampicillin] 2. Altered mental status: Given it is fluctuating and worse at some times and better at other times, it fulfills the criteria for delirium -Most common explanation seems to be secondary to metabolic derangements, as patient has not been dialyzed for last 4-5 days. Seems unlikely secondary to embolic complications of endocarditis, as mostly embolic showering leads to focal neurological deficits and seizures. MRI negative for any focal findings Another possibility could be antibiotic induced, secondary to ceftriaxone; especially in absence of hemodialysis for last few days. The good thing is that it is reversible 3. Absent bowel sounds with episodes of billous vomiting could suggest Ileus Recommendations: -Stop IV Vanc 1 gm after HD. Start IV ampicillin 2 g every 12 hours - will recommend holding IV ceftriaxone for now to see if that improves his mental status await LP studies [sent for Gram stain, culture/sensitivity, cell count, total protein, glucose]. - Once repeat blood Cx neg for 72 hrs, a new tunneled HD line can be re- inserted. Currently blood cultures from 04/08 negative - Ileus w/u per primary team. Toxigenic Cdiff negative on 04/07/18 will follow Derrick Cody MD Infectious diseases
[2018-04-09] MEDS: AMPICILLIN SODIUM 2 GM in 0.9 % SODIUM CHLORIDE 100 ML IV SCH (14:09)
[2018-04-09] MEDS ORDERED: levETIRAcetam 500 MG in 0.9 % SODIUM CHLORIDE 100 ML IV ONE (15:35)
[2018-04-09] MEDS ORDERED: levETIRAcetam 750 MG in 0.9 % SODIUM CHLORIDE 100 ML IV ONE (16:00)
--- NOTE | 2018-04-09 16:35 | Magnetic Resonance Report ---
CLINICAL INFORMATION: Altered mental status and endocarditis with bacteremia COMPARISON: None. TECHNIQUE: The patient had received intravenous contrast conscious sedation, as ordered by Dr. Champion. In spite of sedation patient was unable to remain motionless during the study. Sagittal T1, axial FLAIR, axial diffusion and axial apparent diffusion coefficient images were obtained. FINDINGS: There are patchy areas of abnormal signal in a periventricular distribution bilaterally involving the frontal and parietal lobes. These have no mass effect or restricted diffusion. 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 There is encephalomalacia at this site. No acute infarct is present. There is also no apparent encephalitis or septic emboli in the brain. No mass is identified. Moderate dilatation of the lateral ventricles is present. The ventricular dilatation is out of proportion to the underlying cerebral atrophy. The third ventricle is within normal limits and fourth ventricle is normal in size. There is no abnormal extra-axial fluid collection. IMPRESSION: Mild hydrocephalus Moderate white matter disease predominantly involving the frontal and parietal lobes. This is probably due to age-related ischemia or degeneration. No acute abnormality is identified to explain the altered mental status. Interpreted and Authenticated by: Oliverio Sandoval 04/09/18
[2018-04-09] MEDS ORDERED: fentaNYL 100 MCG/2 ML VIAL IV ONE (16:36)
[2018-04-09] MEDS ORDERED: MIDAZOLAM 2 MG/2 ML VIAL IV ONE (16:36)
[2018-04-09] MEDS ORDERED: LIDOCAINE 1% 20 ML VIAL SQ ONE (16:38)
--- NOTE | 2018-04-09 16:45 | XRay Report ---
HISTORY: Altered mental status and bacteremia FINDINGS: The patient had already been sedated for the preceding MRI. He was placed prone on the x-ray table. Crosstable lateral film of the lumbar spine was obtained. The skin was prepped with Betadine and then anesthetized with 1% lidocaine. Using fluoroscopic guidance an 18-gauge needle was inserted into the spinal canal at the L2-3 level.. The opening pressure was approximately 5 cm. 8.5 cc of clear CSF was removed and sent to laboratory for analysis. He tolerated the procedure well without complication. 59 seconds of fluoroscopy time was used. IMPRESSION: Successful lumbar puncture obtaining 8.5 cc of clear CSF Interpreted and Authenticated by: Oliverio Sandoval 04/09/18
[2018-04-09 17:35] LABS: Glucose,CSF 64 mg/dL (45-75)
[2018-04-09 18:58] LABS: Appearance,CSF CLEAR; Nucleated Cells,CSF 1 /cumm (0-5); Red Blood Cell,CSF 2 /cumm (0-1)
[2018-04-09 18:58] LABS: Appearance,CSF CLEAR; Nucleated Cells,CSF 3 /cumm (0-5); Red Blood Cell,CSF 1 /cumm (0-1)
[2018-04-09 20:20] LABS: Lymphocytes,CSF 84 % (40-80); Monocytes,CSF 15 % (15-45); Neutrophils,CSF 2 % (0-6); Total Cell Ct,CSF 55
[2018-04-09] MEDS: ATORVASTATIN 20 MG TABLET PO SCH (23:23)
[2018-04-09] MEDS: amLODIPine 10 MG TABLET PO SCH (23:24)
[2018-04-10] MEDS: INSULIN LISPRO 1 UNIT/0.01 ML UNIT SQ SCH ×5 (00:16→20:57)
[2018-04-10] MEDS: 0.9 % SODIUM CHLORIDE 10 ML SYRINGE IV SCH ×4 (00:17→20:51)
[2018-04-10] MEDS: hydrALAZINE 20 MG/ML VIAL IV PRN ×3 (03:07→16:31)
[2018-04-10 05:34] LABS: Mean Cell Volume 81.5 fL (80.0-100.0); Mean Corpuscular HGB Conc 32.5 g/dL (31.0-36.0); Mean Corpuscular Hemoglobin 26.4 pg (26.0-34.0); Platelet Count 321 K/mcL (140-440); RBC 2.98 M/mcL (4.50-5.90); Red Cell Distribution Width 17.4 % (11.5-14.5)
[2018-04-10 06:43] LABS: ALT/SGPT < 5 U/l (0-40); Albumin 2.5 gm/dL (3.2-5.2); Albumin/Globulin Ratio 0.7 (1.0-2.3); Alkaline Phosphatase 116 U/L (39-117); Bilirubin,Direct < 0.2 mg/dL (0.0-0.3); Blood Urea Nitrogen 30 mg/dl (8-23); C-Reactive Protein 13.7 mg/dl (0.0-0.8); Gamma Glutamyl Transpeptidase 57 U/L (8-61); Uric Acid 5.3 mg/dL (2.5-8.0)
--- NOTE | 2018-04-10 06:53 | Nephrology Progress Note ---
Subjective Patient information: Note initiated : 04/10/18 at 6:50 am Eb Cornell is a [id number] male admitted on 04/03/18 for positive blood cultures which grew enterococcus species. Chief Complaint: Positive blood cultures Principal diagnosis: Acute kidney injury, hemodialysis dependent Interval history: Tunneled hemodialysis catheter removal at [facility] after hemodialysis at [facility] on Temporary hemodialysis catheter placement and SCAR at [facility] on 04/06/18 Pertinent ROS: Weakness Confusion No shortness of breath Objective - Vital Signs Vital signs: Vital Signs Temp Pulse Pulse Resp BP BP Pulse Ox 04/10/18 06:01 13 170/51 04/10/18 06:00 12 04/10/18 05:31 17 150/55 04/10/18 05:02 19 04/10/18 05:01 21 163/48 04/10/18 05:00 17 04/10/18 04:33 21 04/10/18 04:32 16 175/44 04/10/18 04:01 17 167/45 04/10/18 04:00 13 04/10/18 03:32 22 04/10/18 03:31 22 176/52 04/10/18 03:15 23 H 159/46 04/10/18 03:01 20 200/55 04/10/18 03:00 22 04/10/18 02:02 13 04/10/18 02:01 15 187/57 04/10/18 02:00 15 04/10/18 01:02 23 H 04/10/18 01:01 16 155/61 04/10/18 01:00 17 04/10/18 00:23 11 L 142/42 04/10/18 00:02 175/56 04/09/18 23:03 17 04/09/18 23:02 15 166/76 04/09/18 23:00 15 04/09/18 22:03 12 04/09/18 22:02 16 139/62 04/09/18 22:00 18 04/09/18 21:02 12 192/53 04/09/18 21:00 14 04/09/18 20:03 97 F 16 172/57 94 04/09/18 20:02 172/57 04/09/18 19:02 186/158 04/09/18 19:00 13 04/09/18 18:37 18 180/72 04/09/18 18:32 14 181/78 04/09/18 18:28 16 185/70 04/09/18 18:27 15 189/98 04/09/18 18:22 14 165/80 04/09/18 18:17 14 174/72 04/09/18 18:12 14 172/77 04/09/18 18:07 14 182/66 04/09/18 18:03 14 04/09/18 18:02 19 166/104 04/09/18 18:00 12 04/09/18 17:57 17 160/129 04/09/18 17:52 21 147/110 04/09/18 17:47 11 L 162/67 04/09/18 17:42 18 155/74 04/09/18 17:37 19 164/62 04/09/18 17:32 18 162/77 04/09/18 17:27 31 H 151/78 04/09/18 17:22 29 H 174/66 04/09/18 17:17 20 181/61 04/09/18 17:12 18 170/50 04/09/18 17:07 14 168/68 04/09/18 17:02 29 H 177/56 04/09/18 17:00 26 H 04/09/18 16:57 15 170/62 04/09/18 16:52 24 H 152/95 04/09/18 16:47 73 11 L 155/65 92 04/09/18 16:42 78 14 143/56 100 04/09/18 16:40 84 20 123/54 100 04/09/18 16:38 79 17 100 04/09/18 16:37 80 22 162/57 100 04/09/18 16:35 81 16 159/69 98 04/09/18 16:32 80 15 159/69 100 04/09/18 16:27 72 23 H 159/45 100 04/09/18 16:22 71 18 138/45 100 04/09/18 16:20 73 23 H 159/45 100 04/09/18 16:17 70 14 132/35 100 04/09/18 16:12 72 15 143/41 100 04/09/18 16:07 70 26 H 124/45 100 04/09/18 16:02 72 19 145/44 100 04/09/18 16:00 74 14 100 04/09/18 15:57 74 12 138/50 100 18 15:55 80 22 178/119 100 1518 15:50 75 12 138/50 100 1518 15:49 86 20 183/104 99 04/09/18 15:45 82 14 96 04/09/18 15:34 81 16 130/51 100 04/09/18 15:25 86 20 147/56 100 04/09/18 14:54 84 165/72 98 04/09/18 14:47 83 165/72 98 04/09/18 14:32 82 158/66 97 04/09/18 14:26 97 F 04/09/18 14:17 83 155/79 99 04/09/18 14:13 83 161/66 98 04/09/18 14:10 84 155/79 04/09/18 14:03 80 99 04/09/18 14:02 83 149/69 98 04/09/18 14:00 84 149/69 97 04/09/18 13:46 86 141/68 96 04/09/18 13:45 83 141/68 04/09/18 13:31 80 128/67 99 04/09/18 13:30 85 128/67 04/09/18 13:16 140/71 04/09/18 13:15 87 140/71 04/09/18 13:01 121/62 04/09/18 13:00 84 121/62 04/09/18 12:46 87 137/59 99 04/09/18 12:45 88 137/59 04/09/18 12:31 123/64 04/09/18 12:30 88 123/64 04/09/18 12:16 128/78 04/09/18 12:15 89 105/63 04/09/18 12:02 91 H 105/63 93 04/09/18 12:00 97 F 92 H 109/62 92 04/09/18 11:45 97 F 92 H 109/62 04/09/18 11:30 96 H 107/67 04/09/18 11:16 113/75 04/09/18 11:15 98 H 113/75 04/09/18 11:02 99/48 04/09/18 11:00 99 H 99/48 04/09/18 10:46 163/76 04/09/18 10:45 85 163/76 04/09/18 10:32 163/82 04/09/18 10:16 157/76 04/09/18 10:02 154/71 04/09/18 09:50 84 163/68 04/09/18 09:46 84 163/68 94 04/09/18 09:31 86 142/80 97 04/09/18 09:30 97.3 F 83 142/80 04/09/18 09:16 150/86 04/09/18 09:01 25 H 165/87 04/09/18 09:00 17 04/09/18 08:02 14 04/09/18 08:01 16 136/73 04/09/18 08:00 97.4 F 26 H 04/09/18 07:02 87 18 98 04/09/18 07:01 87 13 148/79 99 04/09/18 07:00 86 17 99 Intake and Output 04/09/18 04/10/18 04/10/18 21:59 05:59 13:59 Intake Total 100 / 100 Output Total 3110 / 3110 Balance -3010 / -3010 Intake: IV 100 / 100 Ampicillin 2 gm In Sodium 100 / 100 Chloride 0.9% 100 ml @ 100 mls/ hr IV Q12H [facility] Rx#:[id number] Output: Hemodialysis UF 3110 / 3110 Other: Feeding Ability Assist with Tray Set Up Weight 263 lb Intake & Output: Intake & Output 04/09/18 04/10/18 04/10/18 21:59 05:59 13:59 Intake Total 100 / 100 Output Total 3110 / 3110 Balance -3010 / -3010 Weight 263 lb Intake: IV 100 / 100 Ampicillin 2 gm In Sodium 100 / 100 Chloride 0.9% 100 ml @ 100 mls/ hr IV Q12H [facility] Rx#:[id number] Output: Hemodialysis UF 3110 / 3110 Other: Feeding Ability Assist with Tray Set Up - General Appearance General appearance: chronically ill, frail EENT: mucous membranes moist Neck: supple Respiratory: clear Cardiology: edema Gastrointestinal: no tenderness Integumentary: warm and dry Neurologic: confused Musculoskeletal: no erythema Psychiatric: agitated - Lab 04/10/18 04:00 04/10/18 04:00 Most recent lab results Calcium 8.3 mg/dl (8.6-10.4) L 04/10/18 04:00 Phosphorus 6.3 mg/dL (2.7-4.5) H* 04/10/18 04:00 Magnesium 1.8 mg/dL (1.6-2.5) 04/10/18 04:00 Assessment and Plan (1) Acute on chronic renal failure Eb Cornell is a [id number] male with acute kidney injury, likely acute tubular necrosis on chronic kidney disease stage 3 requiring acute hemodialysis at [facility], persistent non-nephrotic range proteinuria, vitamin D deficiency associated with secondary hyperparathyroidism of renal origin, chronic anemia associated with chronic kidney disease, bilateral lower extremity edema, hypertension, diabetes mellitus type 2, admitted on 04/03/18 for positive blood cultures which grew enterococcus species. Acute kidney injury, likely acute tubular necrosis on chronic kidney disease stage 3 requiring acute hemodialysis at [facility]. 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 Acute encephalopathy, not changed Temporary hemodialysis catheter dysfunction, improved Progress: Tunneled hemodialysis catheter removal at [facility] after hemodialysis at [facility] on 04/04/18 Temporary hemodialysis catheter placement and SCAR at [facility] on 04/06/18 Last hemodialysis on 04/09/18 Discussion: I talked to his , daughter and Dr Schwarz and Dr Cody on 04/09/18 and discussed further management options. The family do not want transfer to [place] or cardiac surgery evaluation. Hospice will be considered based on progress. Discharge planning: For discharge from hospital he would need; SNF/LTAC placement, improved mental status, tunneled hemodialysis catheter and possibly picc line and outpatient IV antibiotic plan. [facility] would be a good alternative if possible. Plan: Hemodialysis today. Prognosis: Very poor. The patient seen and evaluated during dialysis at 11:30. His and daughter updated. Status: Acute Priority: High Qualifiers: Acute renal failure type: with acute tubular necrosis Chronic kidney disease stage: stage 3 (moderate) Qualified Code(s): N17.0 - Acute kidney failure with tubular necrosis; N18.3 - Chronic kidney disease, stage 3 (moderate ) (2) Metabolic acidosis Status: Resolved Priority: Medium
--- NOTE | 2018-04-10 07:13 | Internal Med Progress Note ---
Medical - PN: Subj Patient information: Note initiated : 04/10/18 at 7:05 am Service Date, if different from initiated Date: [] Patient: Eb Cornell a 72 y/o M admitted on 04/03/18 for Enterococcus Fecalis Bacteremia . Chief Complaint: [] Interval history: Mr. Cornell is a 72 year old M Who is a difficult historian. He was seen in the ER by his blade boner after positive blood culture. It grew gram-positive cocci. In trying to gather why the blood culture was done sounds like he had some labs that were done which were abnormal suspect may be he had a white blood cell count that was elevated and the workup included blood cultures as her seem to be no clear source at the time. He has no complaints at this time. Denies any recent sick contacts. However he has been in the hospital recently for an amputation of the right lower extremity. 04/04 Slept well, no events. Plan to get tunneled catheter removed and SCAR done over at [facility]. 04/05 Patient became altered over at [facility] after the after removal of HD cath. Was supposed to go for SCAR but felt to be too compromised. Patient arrived back To [facility] late in the day. Evaluated and found to be mumbling and following minimal commands. Vital signs are stable. A stat CT brain was ordered which showed Moderate atrophy throughout with chronic ischemic changes throughout as well as some remote infarcts in the left caudate nucleus and deep left frontal white matter but no acute findings. An ABG was ordered which showed a conflicting numbers with rate extremely low oxygen but did not cooperate with his pulse ox as well as a very high pH and low CO2. The machine was calibrated rated and a repeat draw was done which revealed an oxygen that cooperated with the pulse ox, however his pH was still high and his CO2 was low. There was a concernn for a lab error. However further investigation included a chemistry panel which showed a little bit low chloride as well as a low phosphorus other than that it was unremarkable. And repeat venous blood gas was drawn which continued to show a high pH which is just minimally improved as well as a low CO2. Patient did get dialysis today. Discussed case with blade boner. We gave the patient IV fluid and also replaced his phosphorus. And ordered follow- up VBG after fluids which was done the next morning. This morning the patient was still quite confused and lethargic at shift change. However when I saw him around midmorning he had started to clear significantly. He was answering questions appropriately. He still cannot tell me where he is at, But seem to be much more clear minded than last night and even this morning. at bedside. 04/06 Per nursing did not sleep well last night, seemed a little bit agitated last night pulling at some lines and wires. Seems pleasant this morning when I talked to him. No new complaints. Still has some confusion answer some questions with appropriately other questions unable to answer correctly 04/07 Patient had SCAR done yesterday with evidence of vegetation on the aortic valve. Also had insertion of a temporary HD catheter in order to get hemodialysis today. No issues overnight. No complaints per the patient. Mentation seems to be a little bit more clear this morning. Getting dialysis. 04/08 No overnight events. Patient mentation clear this morning per nursing. Patient has no new complaints. Having difficulty with HD catheter. 04/09 More encephalopathic today, is noted that he was not able to get dialysis on Monday very long. Moving all extremities. But mentation yesterday was pretty good quite a difference today. Unable to gather full review of systems. He does answer some my questions but slowly and not sure how reliable. 04/10 Somnolent but answering questions, no overnight events. Patient did not eat much yesterday, did not take all of oral meds, the previous day he ate well. Review of Systems: denies headache/fever/chills/nausea/vomiting/chest or abdominal pain/cough/ dyspnea/diarrhea. Otherwise see above. - Constitutional Vitals: Vital Signs Temp Pulse Resp BP Pulse Ox 97 F 73 14 166/42 94 04/09/18 20:03 04/09/18 16:47 04/10/18 07:01 04/10/18 07:01 04/09/18 20:03 Period Temp Pulse Resp BP Sys/Robles Pulse Ox Last 24 Hr 97 F-97.4 F 70-99 11-31 99-200/35-158 92-100 Intake and Output 04/09/18 04/10/18 04/10/18 21:59 05:59 13:59 Intake Total 100 / 100 Output Total 3110 / 3110 Balance -3010 / -3010 Weight 119.295 kg Intake & Output: Intake & Output 04/09/18 04/10/18 04/10/18 21:59 05:59 13:59 Intake Total 100 / 100 Output Total 3110 / 3110 Balance -3010 / -3010 Weight 119.295 kg Intake: IV 100 / 100 Ampicillin 2 gm In Sodium 100 / 100 Chloride 0.9% 100 ml @ 100 mls/ hr IV Q12H ION Rx#:[id number] Output: Hemodialysis UF 3110 / 3110 Other: Feeding Ability Assist with Tray Set Up Exam: General: lethargic, NAD HEENT: EOMI, neck supple CV: Regular with occasional ectopic beat, 2/6 systolic murmur, Pulm: Clear b/l, no wheezing/rhonchi/rales Abd: soft, protuberant, nontender, +BS x4 Ext: no clubbing/cyanosis, trace LLE edema, amputation right lower extremity Neuro: lethargic but answering questions appropriately, although slowly. moves all extremities and following commands. He knows he is in the hospital but could not give me the name. 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 Skin: warm/dry Medical - PN: Obj Da - Labs CBC & Chem 7: 04/10/18 04:00 04/10/18 04:00 Labs: Abnormal Lab Results 04/10/18 04/10/18 04/10/18 04:00 04:00 04:00 WBC 11.7 H RBC 2.98 L Hgb 7.9 L Hct 24.3 L MCV RDW 17.4 H MPV 7.2 L Gran % Lymph % (Auto) Gran # Lymph # (Auto) Seg Neutrophils % Lymphocytes % RBC Morphology Anisocytosis ESR Carbon Dioxide Anion Gap 17.0 H BUN 30 H Creatinine 5.1 H* Glucose 63 L Calcium 8.3 L Phosphorus 6.3 H* GGT Alkaline Phosphatase Ammonia Lactate Dehydrogenase 280 H C-Reactive Protein 13.7 H Albumin 2.5 L Globulin Albumin/Globulin Ratio 0.7 L Triglycerides 165 H Vitamin B12 Prolactin 32.2 H CSF RBC CSF Lymphocytes 04/09/18 04/09/18 04/09/18 16:55 16:55 16:30 WBC RBC Hgb Hct MCV RDW MPV Gran % Lymph % (Auto) Gran # Lymph # (Auto) Seg Neutrophils % Lymphocytes % RBC Morphology Anisocytosis ESR Carbon Dioxide Anion Gap BUN Creatinine Glucose Calcium Phosphorus GGT Alkaline Phosphatase Ammonia 12 L Lactate Dehydrogenase C-Reactive Protein Albumin Globulin Albumin/Globulin Ratio Triglycerides Vitamin B12 1942 H Prolactin CSF RBC 2 H CSF Lymphocytes 84 H 04/09/18 04/09/18 04/09/18 04:19 04:19 04:19 WBC RBC Hgb Hct MCV RDW MPV Gran % Lymph % (Auto) Gran # Lymph # (Auto) Seg Neutrophils % Lymphocytes % RBC Morphology Anisocytosis ESR Carbon Dioxide 20 L Anion Gap 18.0 H BUN 43 H Creatinine 6.5 H* Glucose Calcium 8.1 L Phosphorus 7.0 H* GGT 71 H Alkaline Phosphatase 127 H Ammonia Lactate Dehydrogenase C-Reactive Protein 14.0 H Albumin 2.3 L Globulin 3.9 H Albumin/Globulin Ratio 0.6 L Triglycerides 187 H Vitamin B12 Prolactin 31.0 H CSF RBC CSF Lymphocytes 04/09/18 04/08/18 04/08/18 04:19 04:00 04:00 WBC 13.2 H 11.2 H RBC 3.13 L 2.97 L Hgb 8.3 L 7.8 L Hct 25.4 L 23.9 L MCV RDW 17.1 H 17.2 H MPV 7.1 L Gran % Lymph % (Auto) 15.4 L Gran # 8.3 H Lymph # (Auto) Seg Neutrophils % 80 H Lymphocytes % 9 L RBC Morphology Abnorm A Anisocytosis 1+ A ESR > 120 H Carbon Dioxide 21 L Anion Gap BUN 40 H Creatinine 6.0 H* Glucose Calcium 8.0 L Phosphorus GGT Alkaline Phosphatase Ammonia Lactate Dehydrogenase C-Reactive Protein Albumin Globulin Albumin/Globulin Ratio Triglycerides Vitamin B12 Prolactin CSF RBC CSF Lymphocytes 04/07/18 04/07/18 04/07/18 09:07 09:07 07:25 WBC 11.3 H RBC 3.10 L Hgb 8.1 L Hct 24.7 L MCV 79.8 L RDW 17.4 H MPV Gran % 80.6 H Lymph % (Auto) 10.7 L Gran # 9.1 H Lymph # (Auto) 1.2 L Seg Neutrophils % Lymphocytes % RBC Morphology Anisocytosis ESR Carbon Dioxide 18 L Anion Gap 18.0 H BUN 37 H Creatinine 5.9 H* Glucose Calcium 8.0 L Phosphorus GGT Alkaline Phosphatase Ammonia Lactate Dehydrogenase C-Reactive Protein 17.4 H Albumin Globulin Albumin/Globulin Ratio Triglycerides Vitamin B12 Prolactin CSF RBC CSF Lymphocytes 04/07/18 07:25 WBC RBC Hgb Hct MCV RDW MPV Gran % Lymph % (Auto) Gran # Lymph # (Auto) Seg Neutrophils % Lymphocytes % RBC Morphology Anisocytosis ESR > 120 H Carbon Dioxide Anion Gap BUN Creatinine Glucose Calcium Phosphorus GGT Alkaline Phosphatase Ammonia Lactate Dehydrogenase C-Reactive Protein Albumin Globulin Albumin/Globulin Ratio Triglycerides Vitamin B12 Prolactin CSF RBC CSF Lymphocytes Meds: Medications Acetaminophen (Tylenol) 650 mg PO Q6HP PRN PRN Reason: PAIN/FEVER > 101 Albuterol Sulfate (Ventolin) 2.5 mg NEB Q2HP PRN PRN Reason: Shortness Of Breath Amlodipine Besylate (Norvasc) 10 mg PO QHS [facility] Last Admin: 04/09/18 23:24 Dose: Not Given Aspirin (Aspirin) 81 mg PO DAILY [facility] Last Admin: 04/09/18 11:16 Dose: Not Given Atorvastatin Calcium (Lipitor) 20 mg PO HS [facility] Last Admin: 04/09/18 23:23 Dose: Not Given Dextrose (Dextrose 50%) 0 ml IV UD PRN PRN Reason: Hypoglycemia Diagnostic Test (Pha) (Accu-Chek) 1 each FS ACHS [facility] Last Admin: 04/09/18 21:00 Dose: 1 each Glucose (Insta-Glucose) 15 gm PO PRN PRN PRN Reason: Hypoglycemia Heparin Sodium (Porcine) (Heparin) 5,000 unit SQ Q12 [facility] Last Admin: 04/09/18 22:26 Dose: 5,000 unit Hydralazine HCl (Apresoline) 0 mg IV Q2HP PRN PRN Reason: Hypertension Last Admin: 04/10/18 03:07 Dose: 20 mg Magnesium Sulfate (Magnesium Sulfate) 2 gm in 50 mls @ 25 mls/hr IV PRN PRN PRN Reason: Mg = or < 1.7 Ampicillin Sodium 2 gm/ Sodium (Chloride) 100 mls @ 100 mls/hr IV Q12H [facility] Last Infusion: 04/09/18 15:09 Dose: Infused Levetiracetam 500 mg/ Sodium (Chloride) 105 mls @ 200 mls/hr IV Q12 ION Insulin Glargine (Lantus) 15 unit SQ QAM [facility] Last Admin: 04/09/18 10:18 Dose: 15 unit Insulin Human Lispro (Humalog) 0 unit SQ ACHS [facility]; Protocol Last Admin: 04/10/18 00:16 Dose: Not Given Metoprolol Tartrate (Lopressor) 50 mg PO BID [facility] Last Admin: 04/09/18 23:24 Dose: Not Given Multivit/Ca Carb/B Cmplx/FA/Prenat (Diatx) 1 tab PO BID [facility] Last Admin: 04/09/18 23:23 Dose: Not Given Naloxone HCl (Narcan) 0.1 mg IV Q2MIN PRN PRN Reason: Opiate Reversal Ondansetron HCl (Zofran) 4 mg IV Q6HP PRN PRN Reason: Nausea And Vomiting Last Admin: 04/09/18 06:49 Dose: 4 mg Oxycodone HCl (Roxicodone) 5 mg PO Q4HP PRN PRN Reason: pain not responding to tylenol Sevelamer Carbonate (Renvela) 1,600 mg PO TIDAC [facility] Last Admin: 04/09/18 17:38 Dose: Not Given Sodium Chloride (Saline Flush) 10 ml IV Q8 [facility] Last Admin: 04/10/18 00:17 Dose: 10 ml - ABG Interpretation ABG results: 04/04/18 04/05/18 04/05/18 21:29 04:04 15:14 ABG Methemoglobin 0.3 L 0.3 L 0.3 L VBG pH 7.65 H* 7.52 H 7.51 H VBG pCO2 23.6 L 34.8 L 32.6 L VBG pO2 180 H 54 H 145 H VBG HCO3 25.2 27.9 25.4 VBG Total CO2 26.0 29.0 26.4 VBG O2 Saturation 93.6 H 85.2 H 94.1 H VBG Base Excess 4.8 H 4.8 H 2.3 H Medical - PN: A/P - Time Spent With Patient Total time spent is greater than 50% in coordination of care (as documented) at patient's floor/unit and/or counseling patient: - Narrative A/P Narrative: A: *Endocarditis w/Enterococcus faecalis: -Leukocytosis/PCT improved -Tunnel cath removed (04/04), Temp cath placed (04/06) -SCAR (04/06) showing large vegetation on noncoronary cusp of Aortic valve ( 1.0cm mobile vegetation) *Bacteremia: 04/03 (2of2 sets) & 04/05 (1of2 sets) cultures growing Enterococcus faecalis *ESRD: Follows with Dr. Schwarz -anuric *Resp and concomitant Ophir contraction alkalosis: improved after IVF bolus *Encephalopathy/Delerium: metabolic/critical illness with likely underlying vascular dementia (CT brain with Moderate atrophy & chronic ischemic changes throughout w/remote lacunar infarcts in the left caudate nucleus and the deep left frontal white matter - started to note memory issues several years ago ) -Mentation has been poor since hospitalization in December with waxing/waning -Waxing/waning here -MRI no septic emboli, just diffuse atrophy, old infarct, chronic white matter ischemic dz -LP unremarkable -could also be related to missing HD from Cath complications vs ?seizure (r/o ) *h/o CVA's as noted on neuroimaging: states he takes ASA and cholesterol medication at home, but do not see it on our list. 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: *KIM w/cpap: *Obesity: *Goals of care: guarded overall prognosis, has been in significant decline since December -discussions with family from several physicians, including myself P: -Continue Ampicillin; Abx per ID -Nephro following -Pending repeat blood cultures (04/08) -EEG pending; empiric keppra started -Nephrology and Infectious Disease following -defer IVF's/diuretics to Nephro -f/u ESR/CRP -cont ASA/Statin -cont BB(increased)/norvasc -SSI, hold home basal insulin for poor oral intake/low BG -PT/OT -ppx: heparin No Code Medical - PN: Qual - VTE Deep Vein Thrombosis/Pulmonary Embolism Present on Admission: No
[2018-04-10] MEDS: AMPICILLIN SODIUM 2 GM in 0.9 % SODIUM CHLORIDE 100 ML IV SCH ×2 (07:15→21:06)
[2018-04-10] MEDS: SEVELAMER 800 MG TABLET PO SCH ×3 (07:46→17:36)
[2018-04-10 07:49] LABS: Anisocytosis 1+ (NONE SEEN); Eosinophils % (Manual) 3 % (0-7); Lymphocytes % 14 % (15-49); Monocytes % (Manual) 7 % (1-12); Platelet Estimate NORMAL (NORMAL); RBC Morphology ABNORM (NORMAL); Segmented Neutrophils % 76 % (38-78)
[2018-04-10] MEDS ORDERED: LABETALOL 5 MG/ML ML IV PRN (09:01)
[2018-04-10] MEDS ORDERED: GENTAMICIN PER PHARMACY IV SCH (09:15)
[2018-04-10] MEDS: ASPIRIN 81 MG TAB.CHEW PO SCH (09:56)
[2018-04-10] MEDS: FOLIC ACID/VITAMIN B COMP W-C 1 TAB TABLET PO SCH ×2 (09:56→21:07)
[2018-04-10] MEDS: METOPROLOL TARTRATE 25 MG TABLET PO SCH ×2 (09:57→20:55)
[2018-04-10] MEDS: HEPARIN 5,000 UNIT/ML VIAL SQ SCH ×2 (10:02→20:56)
[2018-04-10] MEDS ORDERED: SODIUM CHLORIDE 0.9% IV ONE (11:00)
[2018-04-10] MEDS ORDERED: GENTAMICIN SULFATE IV ONE (11:00)
--- NOTE | 2018-04-10 12:16 | Electroencephalogram Report ---
DATE OF EE04/10/2018 HISTORY: The patient is a 72-year-old male who was admitted with confusion. TECHNICAL SUMMARY: This is a routine EEG performed using the 10/20 International System of Electrode Placement. A significant part of the study was contaminated by excessive electrode and movement artifact. DESCRIPTION: There was no posterior dominant rhythm. The background consisted of [id number] amplitude 0.5 to 6 Hertz delta and theta activity with delta predominance. Normal sleep elements were recorded. Activation procedures were not performed. IMPRESSION: EEG is abnormal because of severe diffuse slowing of the background indicative of a severe encephalopathy. A repeat study when the patient is much more cooperative is recommended to properly assess the background. CN:yvette Job ID: [id number] Doc ID: [id number] Anam Mercedes MD
[2018-04-10] MEDS: levETIRAcetam 500 MG in 0.9 % SODIUM CHLORIDE 100 ML IV SCH ×2 (14:27→22:15)
[2018-04-10] MEDS: INSULIN GLARGINE, HUMAN 1 UNIT/0.01 ML SQ SCH (19:38)
[2018-04-10] MEDS: amLODIPine 10 MG TABLET PO SCH (20:56)
[2018-04-10] MEDS: ATORVASTATIN 20 MG TABLET PO SCH (21:07)
--- NOTE | 2018-04-10 22:07 | Infectious Disease Prog Note ---
Subjective Patient information: Note initiated : 04/10/18 at 10:05 pm Service Date, if different from initiated Date: [] Patient: Eb Cornell 72 y/o M admitted on 04/03/18 for Enterococcus Fecalis Bacteremia . Chief Complaint: [] Principal diagnosis: Acute kidney injury, hemodialysis dependent Interval history: Pt more awake today compared to yesterday. Denied any fever, n/v/d. HD cath fxning fine, 3L removed yesterday. Pt not accepting anything orally, also concerns about his swallowing. Objective Objective Narrative: alert, awake, oriented x person, time no thrush chest cta s1 s2 normal, 2/6 ESM at Rt 2nd ICS bs ++, nttd The temp HD cath site looks ok - Vital Signs Vital signs: Vital Signs Temp Pulse Pulse Resp BP Pulse Ox 04/10/18 21:01 18 184/57 04/10/18 21:00 18 04/10/18 20:34 37.3 C H 85 18 157/64 99 04/10/18 20:00 17 04/10/18 19:00 83 18 98 04/10/18 18:00 13 04/10/18 17:31 164/69 04/10/18 17:17 9 L 160/51 04/10/18 17:02 14 156/51 04/10/18 17:00 9 L 04/10/18 16:48 14 04/10/18 16:47 15 153/57 04/10/18 16:32 15 156/72 04/10/18 16:19 12 164/49 04/10/18 16:02 9 L 185/41 04/10/18 16:00 9 L 04/10/18 15:47 36.1 C 12 153/52 95 04/10/18 15:32 13 154/47 04/10/18 15:20 11 L 04/10/18 15:19 11 L 169/48 04/10/18 15:02 18 153/72 04/10/18 15:00 13 04/10/18 14:47 73 13 145/48 96 04/10/18 14:32 79 14 156/48 95 04/10/18 14:17 84 17 151/40 97 04/10/18 14:03 78 15 96 04/10/18 14:02 79 15 148/44 96 04/10/18 14:00 80 73 14 96 04/10/18 13:49 79 13 150/46 97 04/10/18 13:47 76 13 152/43 98 04/10/18 13:45 36.0 C L 78 13 133/48 99 04/10/18 13:32 81 12 148/49 99 04/10/18 13:30 83 148/49 04/10/18 13:17 81 9 L 140/61 98 04/10/18 13:15 83 140/61 04/10/18 13:03 14 04/10/18 13:02 16 140/50 04/10/18 13:00 79 14 140/50 04/10/18 12:47 14 136/54 04/10/18 12:45 78 136/54 04/10/18 12:32 13 132/50 04/10/18 12:30 77 132/50 04/10/18 12:17 14 130/53 04/10/18 12:15 77 130/53 04/10/18 12:03 77 14 96 04/10/18 12:02 78 13 117/50 96 04/10/18 12:00 36.6 C 79 12 117/50 95 04/10/18 11:47 78 28 H 126/52 95 04/10/18 11:45 78 126/52 04/10/18 11:32 78 25 H 139/52 94 04/10/18 11:30 77 139/52 04/10/18 11:16 82 13 146/44 97 04/10/18 11:15 80 146/44 04/10/18 11:03 10 L 04/10/18 11:02 9 L 112/44 04/10/18 11:00 82 13 112/44 04/10/18 10:47 5 L 150/48 04/10/18 10:45 36.6 C 80 130/47 04/10/18 10:43 13 130/47 04/10/18 10:32 10 L 125/53 04/10/18 10:30 19 148/46 04/10/18 10:03 14 04/10/18 10:02 15 151/59 92 04/10/18 10:00 13 04/10/18 09:02 15 04/10/18 09:01 13 119/93 04/10/18 09:00 12 97 04/10/18 08:02 13 04/10/18 08:01 12 161/53 04/10/18 08:00 36.6 C 04/10/18 07:36 11 L 163/50 04/10/18 07:02 13 04/10/18 07:01 14 166/42 04/10/18 07:00 19 04/10/18 06:31 15 175/46 04/10/18 06:02 19 04/10/18 06:01 13 170/51 04/10/18 06:00 12 04/10/18 05:31 17 150/55 04/10/18 05:02 19 04/10/18 05:01 21 163/48 04/10/18 05:00 17 04/10/18 04:33 21 04/10/18 04:32 16 175/44 04/10/18 04:01 17 167/45 04/10/18 04:00 13 04/10/18 03:32 22 04/10/18 03:31 22 176/52 04/10/18 03:15 23 H 159/46 04/10/18 03:01 20 200/55 04/10/18 03:00 22 04/10/18 02:02 13 04/10/18 02:01 15 187/57 04/10/18 02:00 15 04/10/18 01:02 23 H 04/10/18 01:01 16 155/61 04/10/18 01:00 17 04/10/18 00:23 11 L 142/42 04/10/18 00:02 175/56 04/09/18 23:03 17 04/09/18 23:02 15 166/76 04/09/18 23:00 15 Intake and Output 04/10/18 04/10/18 04/11/18 13:59 21:59 05:59 Intake Total 100 / 100 514.85 / 514.85 Output Total 3100 / 3100 Balance 100 / 100 -2585.15 / -2585.15 Intake: IV 100 / 100 514.85 / 514.85 Ampicillin 2 gm In Sodium 100 / 100 Chloride 0.9% 100 ml @ 100 mls/ hr IV Q12H [facility] Rx#:[id number] Keppra 500 mg In Sodium 105 / 105 Chloride 0.9% 100 ml @ 200 mls/ hr IV Q12 [facility] Rx#:[id number] Output: Hemodialysis UF 3100 / 3100 Other: Urine Appearance Cloudy Urine Color Tea Colored Stool Size Large Stool Color Brown Stool Consistency Loose Weight 114.078 kg Patient Weight 04/11/18 05:59 Weight 114.078 kg Intake & Output: Intake & Output 04/10/18 04/10/18 04/11/18 13:59 21:59 05:59 Intake Total 100 / 100 514.85 / 514.85 Output Total 3100 / 3100 Balance 100 / 100 -2585.15 / -2585.15 Weight 114.078 kg Intake: IV 100 / 100 514.85 / 514.85 Ampicillin 2 gm In Sodium 100 / 100 Chloride 0.9% 100 ml @ 100 mls/ hr IV Q12H [facility] Rx#:[id number] Keppra 500 mg In Sodium 105 / 105 Chloride 0.9% 100 ml @ 200 mls/ hr IV Q12 [facility] Rx#:[id number] Output: Hemodialysis UF 3100 / 3100 Other: Urine Appearance Cloudy Urine Color Tea Colored Stool Size Large Stool Color Brown Stool Consistency Loose - General Appearance General appearance: well-developed - Lab 04/10/18 04:00 04/10/18 04:00 Most recent lab results Calcium 8.3 mg/dl (8.6-10.4) L 04/10/18 04:00 Phosphorus 6.3 mg/dL (2.7-4.5) H* 04/10/18 04:00 Magnesium 1.8 mg/dL (1.6-2.5) 04/10/18 04:00 Microbiology 04/09/18 16:31 Cerebral Spinal Fluid - Cerebral Spinal Fluid Gram Stain - Final 04/09/18 16:31 Cerebral Spinal Fluid - Cerebral Spinal Fluid CSF Culture - Preliminary 04/08/18 04:00 Blood Blood Culture - Preliminary 04/08/18 00:34 Blood Blood Culture - Preliminary 04/05/18 03:56 Blood Blood Culture - Final 04/06/18 18:41 Urine - Clean Void Mid-Stream Urine Culture - Final 04/05/18 04:04 Blood Blood Culture - Preliminary Gram positive cocci 04/05/18 05:40 Stool Stool Culture - Final 04/05/18 05:40 Stool Hemorrhagic E.coli Culture - Final 04/06/18 22:35 Stool C. difficile GDH Antigen & Toxins - Final 04/03/18 10:00 Blood Blood Culture - Final Enterococcus species 04/03/18 09:22 Blood Blood Culture - Final Enterococcus species 04/05/18 05:40 Stool Fecal Leukocyte Stain - Final 04/04/18 23:36 Nose - Both Right and Left MRSA (PCR) - Final Medications Active Medications: Acetaminophen (Tylenol) 650 mg PO Q6HP PRN PRN Reason: PAIN/FEVER > 101 Last Admin: 04/10/18 20:52 Dose: 650 mg Albuterol Sulfate (Ventolin) 2.5 mg NEB Q2HP PRN PRN Reason: Shortness Of Breath Amlodipine Besylate (Norvasc) 10 mg PO QHS [facility] Last Admin: 04/10/18 20:56 Dose: 10 mg Admin: 04/09/18 23:24 Dose: Admin: 04/08/18 21:23 Dose: 10 mg Admin: 04/07/18 20:57 Dose: 10 mg Admin: 04/06/18 20:50 Dose: 10 mg Admin: 04/06/18 02:42 Dose: Not Given Non-Admin Reason: Patient Refused Aspirin (Aspirin) 81 mg PO DAILY [facility] Last Admin: 04/10/18 09:56 Dose: Not Given Non-Admin Reason: Difficulty Swallowing Admin: 04/09/18 11:16 Dose: Admin: 04/08/18 09:42 Dose: 81 mg Admin: 04/07/18 10:42 Dose: 81 mg Admin: 04/06/18 17:41 Dose: 81 mg Atorvastatin Calcium (Lipitor) 20 mg PO HS [facility] Last Admin: 04/10/18 21:07 Dose: 20 mg Admin: 04/09/18 23:23 Dose: Admin: 04/08/18 21:23 Dose: 20 mg Admin: 04/07/18 20:57 Dose: 20 mg Admin: 04/06/18 21:16 Dose: 20 mg Dextrose (Dextrose 50%) 0 ml IV UD PRN PRN Reason: Hypoglycemia Last Admin: 04/10/18 07:32 Dose: 25 ml Diagnostic Test (Pha) (Accu-Chek) 1 each FS ACHS [facility] Last Admin: 04/10/18 20:52 Dose: 1 each Admin: 04/10/18 18:05 Dose: 1 each Admin: 04/10/18 11:52 Dose: 1 each Admin: 04/10/18 08:06 Dose: 1 each Admin: 04/10/18 07:32 Dose: 1 each Admin: 04/09/18 21:00 Dose: 1 each Admin: 04/09/18 18:06 Dose: 1 each Admin: 04/09/18 11:37 Dose: 1 each Admin: 04/09/18 07:53 Dose: 1 each Admin: 04/08/18 21:21 Dose: 1 each Admin: 04/08/18 16:55 Dose: 1 each Admin: 04/08/18 11:16 Dose: 1 each Admin: 04/08/18 08:00 Dose: 1 each Admin: 04/07/18 20:56 Dose: 1 each Admin: 04/07/18 17:22 Dose: 1 each Admin: 04/07/18 13:19 Dose: 1 each Admin: 04/07/18 08:05 Dose: 1 each Admin: 04/06/18 21:05 Dose: 1 each Admin: 04/06/18 17:41 Dose: 1 each Admin: 04/06/18 11:13 Dose: 1 each Admin: 04/06/18 07:23 Dose: 1 each Admin: 04/05/18 21:00 Dose: 1 each Admin: 04/05/18 17:59 Dose: 1 each Admin: 04/05/18 11:20 Dose: 1 each Admin: 04/05/18 08:30 Dose: 1 each Gentamicin Sulfate (Gentamicin Per Pharmacy) 1 order IV UD [facility] Glucose (Insta-Glucose) 15 gm PO PRN PRN PRN Reason: Hypoglycemia Heparin Sodium (Porcine) (Heparin) 5,000 unit SQ Q12 [facility] Last Admin: 04/10/18 20:56 Dose: 5,000 unit Admin: 04/10/18 10:02 Dose: 5,000 unit Admin: 04/09/18 22:26 Dose: 5,000 unit Admin: 04/09/18 10:19 Dose: 5,000 unit Admin: 04/08/18 21:22 Dose: 5,000 unit Admin: 04/08/18 09:42 Dose: 5,000 unit Admin: 04/07/18 20:58 Dose: 5,000 unit Admin: 04/07/18 10:42 Dose: 5,000 unit Admin: 04/06/18 20:50 Dose: 5,000 unit Admin: 04/06/18 08:31 Dose: 5,000 unit Admin: 04/06/18 02:18 Dose: Not Given Non-Admin Reason: Patient Refused Admin: 04/05/18 11:18 Dose: 5,000 unit Hydralazine HCl (Apresoline) 0 mg IV Q2HP PRN PRN Reason: Hypertension Last Admin: 04/10/18 16:31 Dose: 10 mg Admin: 04/10/18 07:15 Dose: 20 mg Admin: 04/10/18 03:07 Dose: 20 mg Admin: 04/09/18 06:50 Dose: 20 mg Admin: 04/09/18 00:20 Dose: 20 mg Admin: 04/08/18 16:46 Dose: 10 mg Admin: 04/08/18 03:06 Dose: 20 mg Admin: 04/07/18 16:25 Dose: 10 mg Admin: 04/07/18 04:26 Dose: 20 mg Admin: 04/07/18 02:23 Dose: 10 mg Comments: BP 158/58 Admin: 04/06/18 23:12 Dose: 10 mg Admin: 04/06/18 08:32 Dose: 20 mg Admin: 04/05/18 00:41 Dose: 10 mg Magnesium Sulfate (Magnesium Sulfate) 2 gm in 50 mls @ 25 mls/hr IV PRN PRN PRN Reason: Mg = or < 1.7 Ampicillin Sodium 2 gm/ Sodium (Chloride) 100 mls @ 100 mls/hr IV Q12H [facility] Last Admin: 04/10/18 21:06 Dose: 100 mls/hr Infusion: 04/10/18 09:48 Dose: 0 mls/hr Admin: 04/10/18 07:15 Dose: 100 mls/hr Infusion: 04/09/18 15:09 Dose: 0 mls/hr Admin: 04/09/18 14:09 Dose: 100 mls/hr Levetiracetam 500 mg/ Sodium (Chloride) 105 mls @ 200 mls/hr IV Q12 I[facility] Last Infusion: 04/10/18 16:30 Dose: 0 mls/hr Admin: 04/10/18 14:27 Dose: 200 mls/hr Insulin Human Lispro (Humalog) 0 unit SQ ACHS [facility]; Protocol Last Admin: 04/10/18 20:57 Dose: Admin: 04/10/18 18:05 Dose: Not Given Non-Admin Reason: No Coverage Needed Admin: 04/10/18 11:52 Dose: Not Given Non-Admin Reason: No Coverage Needed Admin: 04/10/18 07:32 Dose: Not Given Non-Admin Reason: Labs Outside of Range Admin: 04/10/18 00:16 Dose: Not Given Non-Admin Reason: No Coverage Needed Admin: 04/09/18 18:07 Dose: Not Given Non-Admin Reason: No Coverage Needed Admin: 04/09/18 11:38 Dose: Not Given Non-Admin Reason: No Coverage Needed Admin: 04/09/18 07:53 Dose: Not Given Non-Admin Reason: No Coverage Needed Admin: 04/08/18 21:22 Dose: Admin: 04/08/18 16:55 Dose: Not Given Non-Admin Reason: Labs Outside of Range Admin: 04/08/18 11:16 Dose: Not Given Non-Admin Reason: Labs Outside of Range Admin: 04/08/18 09:45 Dose: Not Given Non-Admin Reason: Labs Outside of Range Admin: 04/07/18 20:56 Dose: 1 unit Admin: 04/07/18 17:25 Dose: 1 unit Admin: 04/07/18 13:20 Dose: Not Given Non-Admin Reason: No Coverage Needed Admin: 04/07/18 08:06 Dose: Not Given Non-Admin Reason: No Coverage Needed Admin: 04/06/18 21:05 Dose: Admin: 04/06/18 17:52 Dose: Not Given Non-Admin Reason: Labs Outside of Range Admin: 04/06/18 11:14 Dose: Not Given Non-Admin Reason: No Coverage Needed Admin: 04/06/18 07:23 Dose: Not Given Non-Admin Reason: No Coverage Needed Admin: 04/06/18 02:42 Dose: Not Given Non-Admin Reason: No Coverage Needed Admin: 04/05/18 17:59 Dose: Not Given Non-Admin Reason: No Coverage Needed Admin: 04/05/18 12:45 Dose: Not Given Non-Admin Reason: No Coverage Needed Admin: 04/05/18 08:41 Dose: Not Given Non-Admin Reason: No Coverage Needed Labetalol HCl (Trandate) 0 mg IV Q10M PRN PRN Reason: Hypertension Metoprolol Tartrate (Lopressor) 50 mg PO BID [facility] Last Admin: 04/10/18 20:55 Dose: 50 mg Admin: 04/10/18 09:57 Dose: Not Given Non-Admin Reason: Difficulty Swallowing Admin: 04/09/18 23:24 Dose: Admin: 04/09/18 11:17 Dose: Admin: 04/08/18 21:23 Dose: 50 mg Multivit/Ca Carb/B Cmplx/FA/Prenat (Diatx) 1 tab PO BID [facility] Last Admin: 04/10/18 21:07 Dose: 1 tab Admin: 04/10/18 09:56 Dose: Not Given Non-Admin Reason: Difficulty Swallowing Admin: 04/09/18 23:23 Dose: Admin: 04/09/18 11:17 Dose: Admin: 04/08/18 21:23 Dose: 1 tab Admin: 04/08/18 09:42 Dose: 1 tab Admin: 04/07/18 20:57 Dose: 1 tab Admin: 04/07/18 13:20 Dose: 1 tab Admin: 04/06/18 20:50 Dose: 1 tab Admin: 04/06/18 09:53 Dose: Not Given Non-Admin Reason: NPO Admin: 04/06/18 02:40 Dose: Not Given Non-Admin Reason: Patient Refused Admin: 04/05/18 11:17 Dose: 1 tab Naloxone HCl (Narcan) 0.1 mg IV Q2MIN PRN PRN Reason: Opiate Reversal Ondansetron HCl (Zofran) 4 mg IV Q6HP PRN PRN Reason: Nausea And Vomiting Last Admin: 04/09/18 06:49 Dose: 4 mg Oxycodone HCl (Roxicodone) 5 mg PO Q4HP PRN PRN Reason: pain not responding to tylenol Last Admin: 04/10/18 20:56 Dose: 5 mg Sevelamer Carbonate (Renvela) 1,600 mg PO TIDAC [facility] Last Admin: 04/10/18 17:36 Dose: 1,600 mg Admin: 04/10/18 11:52 Dose: Not Given Non-Admin Reason: Difficulty Swallowing Admin: 04/10/18 07:46 Dose: Not Given Non-Admin Reason: Difficulty Swallowing Admin: 04/09/18 17:38 Dose: Admin: 04/09/18 14:09 Dose: Admin: 04/09/18 07:46 Dose: Admin: 04/08/18 16:46 Dose: 1,600 mg Admin: 04/08/18 11:16 Dose: 1,600 mg Admin: 04/08/18 09:43 Dose: 1,600 mg Admin: 04/07/18 17:12 Dose: 1,600 mg Admin: 04/07/18 10:43 Dose: 1,600 mg Admin: 04/07/18 10:43 Dose: Admin: 04/06/18 17:47 Dose: 1,600 mg Admin: 04/06/18 11:14 Dose: Not Given Non-Admin Reason: NPO Admin: 04/06/18 07:33 Dose: Not Given Non-Admin Reason: NPO Admin: 04/05/18 18:59 Dose: Not Given Non-Admin Reason: Patient Refused Admin: 04/05/18 12:45 Dose: Not Given Non-Admin Reason: Patient Refused Admin: 04/05/18 07:30 Dose: Sodium Chloride (Saline Flush) 10 ml IV Q8 [facility] Last Admin: 04/10/18 20:51 Dose: 10 ml Admin: 04/10/18 14:28 Dose: 10 ml Admin: 04/10/18 07:16 Dose: 10 ml Admin: 04/10/18 00:17 Dose: 10 ml Admin: 04/09/18 14:09 Dose: 10 ml Admin: 04/09/18 05:14 Dose: 10 ml Admin: 04/08/18 21:23 Dose: 10 ml Admin: 04/08/18 14:50 Dose: 10 ml Admin: 04/08/18 06:35 Dose: Not Given Non-Admin Reason: Continuous IV Admin: 04/07/18 20:58 Dose: Not Given Non-Admin Reason: Continuous IV Admin: 04/07/18 15:43 Dose: 10 ml Admin: 04/07/18 05:44 Dose: Not Given Non-Admin Reason: Continuous IV Admin: 04/06/18 21:04 Dose: Not Given Non-Admin Reason: Continuous IV Admin: 04/06/18 14:25 Dose: Admin: 04/06/18 05:33 Dose: Not Given Non-Admin Reason: Continuous IV Admin: 04/06/18 02:14 Dose: Not Given Non-Admin Reason: Continuous IV Admin: 04/05/18 14:45 Dose: 10 ml Admin: 04/05/18 11:18 Dose: 10 ml Admin: 04/05/18 06:09 Dose: 10 ml Assessment and Plan - Narrative A/P Narrative: A: 1. 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 Blood cultures from 04/08- so far Tunneled HD catheter removed on 04/04 -Temporary HD catheter placed 04/06/18 - The isolate from 04/05: E fecalis has high level Gent synergy. Plan to start IV Gent today 2. Altered mental status: getting better as pt on intermittent HD, Ceftriaxone switched to Gentamicin - LP unremarkable on cell count, TP, Glu, Cx pending Recommendations: - Continue IV ampicillin 2 g every 12 hours - Spoke with Pharmacy about following Gent levels and dosing. Pt started on 1 mg /kg (adj BW) q48 hrs with 50% of normal renal fxn dose given after 4 hrs of HD. Will use post-HD troughs [to be drawn 4 hrs after HD] to guide dosing [ target for trough <1] - Once repeat blood Cx neg for 72 hrs, a new tunneled HD line can be re- inserted. Currently blood cultures from 04/08 negative - Swallow eval before starting feeding, to prevent aspiration will follow Derrick Cody MD Infectious diseases
[2018-04-11 05:11] LABS: Basophils # (Auto) 0 K/mcL (0.0-0.3); Basophils % (Auto) 0.5 % (0.0-2.0); Eosinophils # (Auto) 0.2 K/mcL (0.0-0.7); Eosinophils % (Auto) 2.5 % (0.0-7.0); Granulocytes % (Auto) 71.4 % (38.0-78.0); Lymphocytes # (Auto) 1.3 K/mcL (1.5-4.8); Lymphocytes % (Auto) 15.7 % (15.5-49.0); Mean Cell Volume 81.3 fL (80.0-100.0); Mean Corpuscular HGB Conc 33.2 g/dL (31.0-36.0); Monocytes # (Auto) 0.8 K/mcL (0.1-0.9); Monocytes % (Auto) 9.9 % (1.0-12.0); Platelet Count 337 K/mcL (140-440); RBC 2.78 M/mcL (4.50-5.90); Red Cell Distribution Width 17.5 % (11.5-14.5)
[2018-04-11] MEDS: 0.9 % SODIUM CHLORIDE 10 ML SYRINGE IV SCH ×3 (05:27→22:31)
[2018-04-11 05:39] LABS: ALT/SGPT < 5 U/l (0-40); Albumin 2.1 gm/dL (3.2-5.2); Albumin/Globulin Ratio 0.6 (1.0-2.3); Alkaline Phosphatase 99 U/L (39-117); Bilirubin,Direct < 0.2 mg/dL (0.0-0.3); Blood Urea Nitrogen 20 mg/dl (8-23); Gamma Glutamyl Transpeptidase 45 U/L (8-61); Uric Acid 4.3 mg/dL (2.5-8.0)
--- NOTE | 2018-04-11 05:59 | Nephrology Progress Note ---
Subjective Patient information: Note initiated : 04/11/18 at 5:56 am Eb Cornell is a 25-qmrap-def male admitted on 04/03/18 for positive blood cultures which grew enterococcus species. Chief Complaint: Positive blood cultures Principal diagnosis: Acute kidney injury, hemodialysis dependent Interval history: Tunneled hemodialysis catheter removal at [facility] after hemodialysis at [facility] on Temporary hemodialysis catheter placement and SCAR at [facility] on 04/06/18 Pertinent ROS: Weakness Confusion No shortness of breath Objective - Vital Signs Vital signs: Vital Signs Temp Pulse Pulse Resp BP Pulse Ox 04/11/18 04:01 98.2 F 68 13 142/50 96 04/11/18 03:01 67 8 L 154/65 97 04/11/18 02:01 14 152/50 97 04/11/18 01:01 69 14 136/49 96 04/11/18 00:01 73 17 160/63 97 04/10/18 23:01 83 17 144/63 97 04/10/18 22:01 80 18 148/55 96 04/10/18 21:01 18 184/57 04/10/18 21:00 18 04/10/18 20:34 99.2 F H 85 18 157/64 99 04/10/18 20:00 17 96 04/10/18 19:00 83 18 98 04/10/18 18:00 13 04/10/18 17:31 164/69 04/10/18 17:17 9 L 160/51 04/10/18 17:02 14 156/51 04/10/18 17:00 9 L 04/10/18 16:48 14 04/10/18 16:47 15 153/57 04/10/18 16:32 15 156/72 04/10/18 16:19 12 164/49 04/10/18 16:02 9 L 185/41 04/10/18 16:00 9 L 04/10/18 15:47 97.0 F 12 153/52 95 04/10/18 15:32 13 154/47 04/10/18 15:20 11 L 04/10/18 15:19 11 L 169/48 04/10/18 15:02 18 153/72 04/10/18 15:00 13 04/10/18 14:47 73 13 145/48 96 04/10/18 14:32 79 14 156/48 95 04/10/18 14:17 84 17 151/40 97 04/10/18 14:03 78 15 96 04/10/18 14:02 79 15 148/44 96 04/10/18 14:00 80 73 14 96 04/10/18 13:49 79 13 150/46 97 04/10/18 13:47 76 13 152/43 98 04/10/18 13:45 96.8 F L 78 13 133/48 99 04/10/18 13:32 81 12 148/49 99 04/10/18 13:30 83 148/49 04/10/18 13:17 81 9 L 140/61 98 04/10/18 13:15 83 140/61 04/10/18 13:03 14 04/10/18 13:02 16 140/50 04/10/18 13:00 79 14 140/50 04/10/18 12:47 14 136/54 04/10/18 12:45 78 136/54 04/10/18 12:32 13 132/50 04/10/18 12:30 77 132/50 04/10/18 12:17 14 130/53 04/10/18 12:15 77 130/53 04/10/18 12:03 77 14 96 04/10/18 12:02 78 13 117/50 96 04/10/18 12:00 97.8 F 79 12 117/50 95 04/10/18 11:47 78 28 H 126/52 95 04/10/18 11:45 78 126/52 04/10/18 11:32 78 25 H 139/52 94 04/10/18 11:30 77 139/52 04/10/18 11:16 82 13 146/44 97 04/10/18 11:15 80 146/44 04/10/18 11:03 10 L 04/10/18 11:02 9 L 112/44 04/10/18 11:00 82 13 112/44 04/10/18 10:47 5 L 150/48 04/10/18 10:45 97.9 F 80 130/47 04/10/18 10:43 13 130/47 04/10/18 10:32 10 L 125/53 04/10/18 10:30 19 148/46 04/10/18 10:03 14 04/10/18 10:02 15 151/59 92 04/10/18 10:00 13 04/10/18 09:02 15 04/10/18 09:01 13 119/93 04/10/18 09:00 12 97 04/10/18 08:02 13 04/10/18 08:01 12 161/53 04/10/18 08:00 97.9 F 04/10/18 07:36 11 L 163/50 04/10/18 07:02 13 04/10/18 07:01 14 166/42 04/10/18 07:00 19 04/10/18 06:31 15 175/46 04/10/18 06:02 19 04/10/18 06:01 13 170/51 04/10/18 06:00 12 Intake and Output 04/10/18 04/10/18 04/11/18 13:59 21:59 05:59 Intake Total 100 / 100 514.85 / 514.85 325 / 325 Output Total 3100 / 3100 Balance 100 / 100 -2585.15 / -2585.15 325 / 325 Intake: IV 100 / 100 514.85 / 514.85 205 / 205 Ampicillin 2 gm In Sodium 100 / 100 100 / 100 Chloride 0.9% 100 ml @ 100 mls/ hr IV Q12H [facility] Rx#:[id number] Keppra 500 mg In Sodium 105 / 105 105 / 105 Chloride 0.9% 100 ml @ 200 mls/ hr IV Q12 [facility] Rx#:[id number] Oral 120 / 120 Output: Hemodialysis UF 3100 / 3100 Other: Urine Appearance Cloudy Urine Color Tea Colored Stool Size Large Stool Color Brown Stool Consistency Loose Weight 251 lb 8 oz Patient Weight 04/11/18 05:59 Weight 251 lb 8 oz Intake & Output: Intake & Output 04/10/18 04/10/18 04/11/18 13:59 21:59 05:59 Intake Total 100 / 100 514.85 / 514.85 325 / 325 Output Total 3100 / 3100 Balance 100 / 100 -2585.15 / -2585.15 325 / 325 Weight 251 lb 8 oz Intake: IV 100 / 100 514.85 / 514.85 205 / 205 Ampicillin 2 gm In Sodium 100 / 100 100 / 100 Chloride 0.9% 100 ml @ 100 mls/ hr IV Q12H [facility] Rx#:[id number] Keppra 500 mg In Sodium 105 / 105 105 / 105 Chloride 0.9% 100 ml @ 200 mls/ hr IV Q12 [facility] Rx#:[id number] Oral 120 / 120 Output: Hemodialysis UF 3100 / 3100 Other: Urine Appearance Cloudy Urine Color Tea Colored Stool Size Large Stool Color Brown Stool Consistency Loose - General Appearance General appearance: chronically ill, frail EENT: mucous membranes moist Neck: supple Respiratory: clear Cardiology: edema Gastrointestinal: no tenderness Integumentary: warm and dry Neurologic: no focal deficit, disoriented Musculoskeletal: no deformities Psychiatric: mood/affect appropriate, cooperative - Lab 04/11/18 04:00 04/11/18 04:00 Most recent lab results Calcium 8.2 mg/dl (8.6-10.4) L 04/11/18 04:00 Phosphorus 4.8 mg/dL (2.7-4.5) H 04/11/18 04:00 Magnesium 1.9 mg/dL (1.6-2.5) 04/11/18 04:00 Assessment and Plan (1) Acute on chronic renal failure Eb Cornell is a 57-mg[age]qu-ero male with acute kidney injury, likely acute tubular necrosis on chronic kidney disease stage 3 requiring acute hemodialysis at [facility], persistent non-nephrotic range proteinuria, vitamin D deficiency associated with secondary hyperparathyroidism of renal origin, chronic anemia associated with chronic kidney disease, bilateral lower extremity edema, hypertension, diabetes mellitus type 2, admitted on 04/03/18 for positive blood cultures which grew enterococcus species. Acute kidney injury, likely acute tubular necrosis on chronic kidney disease stage 3 requiring acute hemodialysis at [facility]. 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 Acute encephalopathy, improved Temporary hemodialysis catheter dysfunction, improved Progress: Tunneled hemodialysis catheter removal at [facility] after hemodialysis at [facility] on 04/04/18 Temporary hemodialysis catheter placement and SCAR at [facility] on 04/06/18 Last hemodialysis on 04/10/18 Discussion: I talked to his , daughter and Dr Schwarz and Dr Cody on 04/09/18 and discussed further management options. The family do not want transfer to [place] or cardiac surgery evaluation. Hospice will be considered based on progress. Discharge planning: For discharge from hospital he would need; SNF/LTAC placement, improved mental status, tunneled hemodialysis catheter and possibly picc line and outpatient IV antibiotic plan. [facility] would be a good alternative if possible. Plan: Next hemodialysis tomorrow Prognosis: Poor. Status: Acute Priority: High Qualifiers: Acute renal failure type: with acute tubular necrosis Chronic kidney disease stage: stage 3 (moderate) Qualified Code(s): N17.0 - Acute kidney failure with tubular necrosis; N18.3 - Chronic kidney disease, stage 3 (moderate ) (2) Metabolic acidosis Plan: Sodium Bicarbonate 1300 mg three times daily ordered for metabolic acidosis Hemodialysis today Status: Resolved Priority: Medium
[2018-04-11] MEDS: SEVELAMER 800 MG TABLET PO SCH ×3 (08:28→18:15)
[2018-04-11] MEDS: INSULIN LISPRO 1 UNIT/0.01 ML UNIT SQ SCH ×4 (08:28→22:30)
[2018-04-11] MEDS: FOLIC ACID/VITAMIN B COMP W-C 1 TAB TABLET PO SCH ×2 (08:29→22:29)
[2018-04-11] MEDS: METOPROLOL TARTRATE 25 MG TABLET PO SCH ×2 (08:29→22:29)
[2018-04-11] MEDS: ASPIRIN 81 MG TAB.CHEW PO SCH (08:29)
[2018-04-11] MEDS: HEPARIN 5,000 UNIT/ML VIAL SQ SCH ×2 (08:29→22:30)
[2018-04-11] MEDS: levETIRAcetam 500 MG in 0.9 % SODIUM CHLORIDE 100 ML IV SCH (09:00)
[2018-04-11] MEDS ORDERED: THIAMINE 100 MG TABLET PO SCH (09:06)
[2018-04-11] MEDS: AMPICILLIN SODIUM 2 GM in 0.9 % SODIUM CHLORIDE 100 ML IV SCH ×2 (09:41→22:29)
[2018-04-11] MEDS ORDERED: NALOXONE HCL 0.4 MG/ML VIAL IV PRN (09:49)
[2018-04-11] MEDS ORDERED: DEXTROSE 31 GM ORAL.SUSP PO PRN (09:49)
[2018-04-11] MEDS ORDERED: MAGNESIUM SULFATE 2 GM/50 ML BAG IV PRN (09:49)
[2018-04-11] MEDS ORDERED: oxyCODONE HCL 5 MG TABLET PO PRN (09:49)
[2018-04-11] MEDS ORDERED: hydrALAZINE 20 MG/ML VIAL IV PRN (09:49)
[2018-04-11] MEDS ORDERED: GENTAMICIN PER PHARMACY IV SCH (09:49)
[2018-04-11] MEDS ORDERED: LABETALOL 5 MG/ML ML IV PRN (09:49)
[2018-04-11] MEDS ORDERED: ONDANSETRON 4 MG/2 ML VIAL IV PRN (09:49)
[2018-04-11] MEDS ORDERED: DEXTROSE 50% 50 ML VIAL IV PRN (09:49)
[2018-04-11] MEDS ORDERED: ACETAMINOPHEN 325 MG TABLET PO PRN (09:49)
[2018-04-11] MEDS ORDERED: ALBUTEROL SULFATE 2.5 MG/3 ML NEBULIZER NEB PRN (09:49)
--- NOTE | 2018-04-11 14:57 | Internal Med Progress Note ---
Medical - PN: Subj Patient information: Note initiated : 04/11/18 at 2:52 pm Service Date, if different from initiated Date: [] Patient: Eb Cornell a 72 y/o M admitted on 04/03/18 for Enterococcus Fecalis Bacteremia . Chief Complaint: [] Interval history: Mr. Cornell is a 72 year old M Who is a difficult historian. He was seen in the ER by his project manager process development after positive blood culture. It grew gram-positive cocci. In trying to gather why the blood culture was done sounds like he had some labs that were done which were abnormal suspect may be he had a white blood cell count that was elevated and the workup included blood cultures as her seem to be no clear source at the time. He has no complaints at this time. Denies any recent sick contacts. However he has been in the hospital recently for an amputation of the right lower extremity. 04/04 Slept well, no events. Plan to get tunneled catheter removed and SCAR done over at [facility]. 04/05 Patient became altered over at [facility] after the after removal of HD cath. Was supposed to go for SCAR but felt to be too compromised. Patient arrived back To [facility] late in the day. Evaluated and found to be mumbling and following minimal commands. Vital signs are stable. A stat CT brain was ordered which showed Moderate atrophy throughout with chronic ischemic changes throughout as well as some remote infarcts in the left caudate nucleus and deep left frontal white matter but no acute findings. An ABG was ordered which showed a conflicting numbers with rate extremely low oxygen but did not cooperate with his pulse ox as well as a very high pH and low CO2. The machine was calibrated rated and a repeat draw was done which revealed an oxygen that cooperated with the pulse ox, however his pH was still high and his CO2 was low. There was a concernn for a lab error. However further investigation included a chemistry panel which showed a little bit low chloride as well as a low phosphorus other than that it was unremarkable. And repeat venous blood gas was drawn which continued to show a high pH which is just minimally improved as well as a low CO2. Patient did get dialysis today. Discussed case with project manager process development. We gave the patient IV fluid and also replaced his phosphorus. And ordered follow- up VBG after fluids which was done the next morning. This morning the patient was still quite confused and lethargic at shift change. However when I saw him around midmorning he had started to clear significantly. He was answering questions appropriately. He still cannot tell me where he is at, But seem to be much more clear minded than last night and even this morning. at bedside. 04/06 Per nursing did not sleep well last night, seemed a little bit agitated last night pulling at some lines and wires. Seems pleasant this morning when I talked to him. No new complaints. Still has some confusion answer some questions with appropriately other questions unable to answer correctly 04/07 Patient had SCAR done yesterday with evidence of vegetation on the aortic valve. Also had insertion of a temporary HD catheter in order to get hemodialysis today. No issues overnight. No complaints per the patient. Mentation seems to be a little bit more clear this morning. Getting dialysis. 04/08 No overnight events. Patient mentation clear this morning per nursing. Patient has no new complaints. Having difficulty with HD catheter. 04/09 More encephalopathic today, is noted that he was not able to get dialysis on Monday very long. Moving all extremities. But mentation yesterday was pretty good quite a difference today. Unable to gather full review of systems. He does answer some my questions but slowly and not sure how reliable. 04/10 Somnolent but answering questions, no overnight events. Patient did not eat much yesterday, did not take all of oral meds, the previous day he ate well. 04/11 Patient seen and examined, no acute overnight issues, this AM sitting in bed comfortably, had some breakfast and was reading a news paper. He is still confused ,but based on previous documentation, mental status is much better. The patient denies any acute complaint Pertinent ROS: Denies headache, dizziness Denies chest pain, palpitations Denies cough or shortness of breath Denies abdominal pain, nausea or vomiting. - Constitutional Vitals: Vital Signs Temp Pulse Resp BP Pulse Ox 97.0 F 67 20 151/51 100 04/11/18 12:00 04/11/18 12:00 04/11/18 12:00 04/11/18 12:00 04/11/18 12:00 Period Temp Pulse Resp BP Sys/Robles Pulse Ox Last 24 Hr 97.0 F-99.2 F 67-85 8-23 134-185/41-72 95-100 Intake and Output 04/11/18 04/11/18 04/11/18 05:59 13:59 21:59 Intake Total 325 / 325 105 / 105 Balance 325 / 325 105 / 105 Intake & Output: Intake & Output 04/11/18 04/11/18 04/11/18 05:59 13:59 21:59 Intake Total 325 / 325 105 / 105 Balance 325 / 325 105 / 105 Intake: IV 205 / 205 105 / 105 Ampicillin 2 gm In Sodium 100 / 100 Chloride 0.9% 100 ml @ 100 mls/ hr IV Q12H [facility] Rx#:[id number] Keppra 500 mg In Sodium 105 / 105 105 / 105 Chloride 0.9% 100 ml @ 200 mls/ hr IV Q12 ION Rx#:[id number] Oral 120 / 120 Exam: Constitutional; Afebrile, cooperative, alert, not in distress. Eyes- No icterus, , No periorbital swelling Ears- Ext ear normal, hearing normal to conversation. Neck- Midline trachea, supple Respiratory system: Air Entry equal on both sides, No crackles or wheezing, no rhonchi. CVS- Rate rhythm regular, S1,S2 heard, no gallop, no rub. Abdomen- Soft nontender abdomen, no organomegaly, no tenderness, no guarding or rigidity, HYPO SPLASHER- AOOx2, moving all extremities, no gross focal deficit noted. Medical - PN: Obj Da - Labs CBC & Chem 7: 04/11/18 04:00 04/11/18 04:00 Labs: Abnormal Lab Results 04/11/18 04/11/18 04/10/18 04:00 04:00 04:00 WBC RBC 2.78 L Hgb 7.5 L Hct 22.6 L RDW 17.5 H MPV 7.0 L Lymph # (Auto) 1.3 L Seg Neutrophils % Lymphocytes % RBC Morphology Anisocytosis ESR Carbon Dioxide Anion Gap BUN Creatinine 4.1 H Glucose Calcium 8.2 L Phosphorus 4.8 H GGT Alkaline Phosphatase Ammonia Lactate Dehydrogenase C-Reactive Protein Albumin 2.1 L Globulin 3.8 H Albumin/Globulin Ratio 0.6 L Triglycerides Vitamin B12 Prolactin 32.2 H CSF RBC CSF Lymphocytes 04/10/18 04/10/18 04/09/18 04:00 04:00 16:55 WBC 11.7 H RBC 2.98 L Hgb 7.9 L Hct 24.3 L RDW 17.4 H MPV 7.2 L Lymph # (Auto) Seg Neutrophils % Lymphocytes % 14 L RBC Morphology Abnorm A Anisocytosis 1+ A ESR Carbon Dioxide Anion Gap 17.0 H BUN 30 H Creatinine 5.1 H* Glucose 63 L Calcium 8.3 L Phosphorus 6.3 H* GGT Alkaline Phosphatase Ammonia Lactate Dehydrogenase 280 H C-Reactive Protein 13.7 H Albumin 2.5 L Globulin Albumin/Globulin Ratio 0.7 L Triglycerides 165 H Vitamin B12 1942 H Prolactin CSF RBC CSF Lymphocytes 04/09/18 04/09/18 04/09/18 16:55 16:30 04:19 WBC RBC Hgb Hct RDW MPV Lymph # (Auto) Seg Neutrophils % Lymphocytes % RBC Morphology Anisocytosis ESR Carbon Dioxide Anion Gap BUN Creatinine Glucose Calcium Phosphorus GGT Alkaline Phosphatase Ammonia 12 L Lactate Dehydrogenase C-Reactive Protein Albumin Globulin Albumin/Globulin Ratio Triglycerides Vitamin B12 Prolactin 31.0 H CSF RBC 2 H CSF Lymphocytes 84 H 04/09/18 04/09/18 04/09/18 04:19 04:19 04:19 WBC 13.2 H RBC 3.13 L Hgb 8.3 L Hct 25.4 L RDW 17.1 H MPV 7.1 L Lymph # (Auto) Seg Neutrophils % 80 H Lymphocytes % 9 L RBC Morphology Abnorm A Anisocytosis 1+ A ESR > 120 H Carbon Dioxide 20 L Anion Gap 18.0 H BUN 43 H Creatinine 6.5 H* Glucose Calcium 8.1 L Phosphorus 7.0 H* GGT 71 H Alkaline Phosphatase 127 H Ammonia Lactate Dehydrogenase C-Reactive Protein 14.0 H Albumin 2.3 L Globulin 3.9 H Albumin/Globulin Ratio 0.6 L Triglycerides 187 H Vitamin B12 Prolactin CSF RBC CSF Lymphocytes Meds: Medications Acetaminophen (Tylenol) 650 mg PO Q6HP PRN PRN Reason: PAIN/FEVER > 101 Albuterol Sulfate (Ventolin) 2.5 mg NEB Q2HP PRN PRN Reason: Shortness Of Breath Amlodipine Besylate (Norvasc) 10 mg PO QHS [facility] Aspirin (Aspirin) 81 mg PO DAILY [facility] Atorvastatin Calcium (Lipitor) 20 mg PO HS [facility] Dextrose (Dextrose 50%) 0 ml IV UD PRN PRN Reason: Hypoglycemia Diagnostic Test (Pha) (Accu-Chek) 1 each FS ACHS [facility] Last Admin: 04/11/18 13:03 Dose: 1 each Gentamicin Sulfate (Gentamicin Per Pharmacy) 1 order IV UD [facility] Glucose (Insta-Glucose) 15 gm PO PRN PRN PRN Reason: Hypoglycemia Heparin Sodium (Porcine) (Heparin) 5,000 unit SQ Q12 [facility] Hydralazine HCl (Apresoline) 0 mg IV Q2HP PRN PRN Reason: Hypertension Ampicillin Sodium 2 gm/ Sodium (Chloride) 100 mls @ 100 mls/hr IV Q12H [facility] Magnesium Sulfate (Magnesium Sulfate) 2 gm in 50 mls @ 25 mls/hr IV PRN PRN PRN Reason: Mg = or < 1.7 Insulin Human Lispro (Humalog) 0 unit SQ ACHS [facility]; Protocol Last Admin: 04/11/18 13:03 Dose: Not Given Labetalol HCl (Trandate) 0 mg IV Q10M PRN PRN Reason: Hypertension Metoprolol Tartrate (Lopressor) 50 mg PO BID [facility] Multivit/Ca Carb/B Cmplx/FA/Prenat (Diatx) 1 tab PO BID [facility] Naloxone HCl (Narcan) 0.1 mg IV Q2MIN PRN PRN Reason: Opiate Reversal Ondansetron HCl (Zofran) 4 mg IV Q6HP PRN PRN Reason: Nausea And Vomiting Oxycodone HCl (Roxicodone) 5 mg PO Q4HP PRN PRN Reason: pain not responding to tylenol Sevelamer Carbonate (Renvela) 1,600 mg PO TIDAC [facility] Last Admin: 04/11/18 13:03 Dose: 1,600 mg Sodium Chloride (Saline Flush) 10 ml IV Q8 [facility] Last Admin: 04/11/18 13:44 Dose: 10 ml Thiamine HCl (Vitamin B1) 100 mg PO DAILY [facility] - ABG Interpretation ABG results: 04/04/18 04/05/18 04/05/18 21:29 04:04 15:14 ABG Methemoglobin 0.3 L 0.3 L 0.3 L VBG pH 7.65 H* 7.52 H 7.51 H VBG pCO2 23.6 L 34.8 L 32.6 L VBG pO2 180 H 54 H 145 H VBG HCO3 25.2 27.9 25.4 VBG Total CO2 26.0 29.0 26.4 VBG O2 Saturation 93.6 H 85.2 H 94.1 H VBG Base Excess 4.8 H 4.8 H 2.3 H Medical - PN: A/P - Time Spent With Patient Total time spent is greater than 50% in coordination of care (as documented) at patient's floor/unit and/or counseling patient: - Narrative A/P Narrative: A: *Endocarditis w/Enterococcus faecalis: improving. neg blood cultures now, will place tunneled cath for hemodialysis and tunneled central line for elevated guard iv abx. pt on ampicillin as well as gentamycin per Infectious disease. -Tunnel cath removed (04/04), Temp cath placed (04/06) -SCAR (04/06) showing large vegetation on noncoronary cusp of Aortic valve ( 1.0cm mobile vegetation) *Bacteremia: 04/03 (2of2 sets) & 04/05 (1of2 sets) cultures growing Enterococcus faecalis, repeat cultures are negatie *ESRD: Follows with Dr. Schwarz -ramana, Nephrology consulted, *Resp and concomitant [place] contraction alkalosis: improved after IVF fluids. *Encephalopathy/Delerium: metabolic/critical illness with likely underlying vascular dementia (CT brain with Moderate atrophy & chronic ischemic changes throughout w/remote lacunar infarcts in the left caudate nucleus and the deep left frontal white matter - started to note memory issues several years ago ) -Mentation has been poor since hospitalization in December with waxing/waning -Waxing/waning here, better today -MRI no septic emboli, just diffuse atrophy, old infarct, chronic white matter ischemic dz -LP unremarkable -could also be related to missing HD from Cath complications - clinically better after switching from rocephin to ampicililn, -d/c keppra for now. start on po thiamine (EEG shows encephalopathy, no seizure activity) *h/o CVA's as noted on neuroimaging: states he takes ASA and cholesterol medication at home, but do not see it on our list. 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 Medical - PN: Qual - VTE Deep Vein Thrombosis/Pulmonary Embolism Present on Admission: No
--- NOTE | 2018-04-11 16:27 | Infectious Disease Prog Note ---
Subjective Patient information: Note initiated : 04/11/18 at 4:24 pm Service Date, if different from initiated Date: [] Patient: Eb Cornell 72 y/o M admitted on 04/03/18 for Enterococcus Fecalis Bacteremia . Chief Complaint: [] Principal diagnosis: Acute kidney injury, hemodialysis dependent Interval history: pt doing much better today. Reading newspaper, and sitting at the side of bed eating his breakfast. No fever, chills, diarrhea reported Objective Objective Narrative: Alert awake, oriented x3 No thrush Chest clear to auscultation Heart sounds normal, 2 out of 6 ejection systolic murmur at right second intercostal space Bowel sounds present,, distended abdomen but soft No edema Left temporary HD catheter site looks fine - Vital Signs Vital signs: Vital Signs Temp Pulse Pulse Resp BP BP BP 04/11/18 16:00 36.1 C 20 144/56 04/11/18 12:00 36.1 C 67 20 151/51 04/11/18 09:00 21 04/11/18 08:00 23 H 04/11/18 07:02 13 134/49 04/11/18 07:00 14 04/11/18 06:02 79 15 135/55 04/11/18 05:02 71 13 138/45 04/11/18 04:01 36.8 C 68 13 142/50 04/11/18 03:01 67 8 L 154/65 04/11/18 02:01 14 152/50 04/11/18 01:01 69 14 136/49 04/11/18 00:01 73 17 160/63 04/10/18 23:01 83 17 144/63 04/10/18 22:01 80 18 148/55 04/10/18 21:01 18 184/57 04/10/18 21:00 18 04/10/18 20:34 37.3 C H 85 18 157/64 04/10/18 20:00 17 04/10/18 19:00 83 18 04/10/18 18:00 13 04/10/18 17:31 164/69 04/10/18 17:17 9 L 160/51 04/10/18 17:02 14 156/51 04/10/18 17:00 9 L 04/10/18 16:48 14 04/10/18 16:47 15 153/57 04/10/18 16:32 15 156/72 Pulse Ox 04/11/18 16:00 96 04/11/18 12:00 100 04/11/18 09:00 04/11/18 08:00 04/11/18 07:02 04/11/18 07:00 04/11/18 06:02 96 04/11/18 05:02 96 04/11/18 04:01 96 04/11/18 03:01 97 04/11/18 02:01 97 04/11/18 01:01 96 04/11/18 00:01 97 04/10/18 23:01 97 04/10/18 22:01 96 04/10/18 21:01 04/10/18 21:00 04/10/18 20:34 99 04/10/18 20:00 96 04/10/18 19:00 98 04/10/18 18:00 04/10/18 17:31 04/10/18 17:17 04/10/18 17:02 04/10/18 17:00 04/10/18 16:48 04/10/18 16:47 04/10/18 16:32 Intake and Output 04/11/18 04/11/18 04/11/18 05:59 13:59 21:59 Intake Total 325 / 325 105 / 105 400 / 400 Balance 325 / 325 105 / 105 400 / 400 Intake: IV 105 / 105 Ampicillin 2 gm In Sodium 100 / 100 Chloride 0.9% 100 ml @ 100 mls/ hr IV Q12H [facility] Rx#:[id number] Keppra 500 mg In Sodium 105 / 105 105 / 105 Chloride 0.9% 100 ml @ 200 mls/ hr IV Q12 [facility] Rx#:[id number] Oral 120 / 120 400 / 400 Intake & Output: Intake & Output 04/11/18 04/11/18 04/11/18 05:59 13:59 21:59 Intake Total 325 / 325 105 / 105 400 / 400 Balance 325 / 325 105 / 105 400 / 400 Intake: IV 205 / 105 / 105 Ampicillin 2 gm In Sodium 100 / 100 Chloride 0.9% 100 ml @ 100 mls/ hr IV Q12H [facility] Rx#:[id number] Keppra 500 mg In Sodium 105 / 105 105 / 105 Chloride 0.9% 100 ml @ 200 mls/ hr IV Q12 [facility] Rx#:[id number] Oral 120 / 120 400 / 400 - General Appearance General appearance: well-developed - Lab 04/11/18 04:00 04/11/18 04:00 Most recent lab results Calcium 8.2 mg/dl (8.6-10.4) L 04/11/18 04:00 Phosphorus 4.8 mg/dL (2.7-4.5) H 04/11/18 04:00 Magnesium 1.9 mg/dL (1.6-2.5) 04/11/18 04:00 Microbiology 04/09/18 16:31 Cerebral Spinal Fluid - Cerebral Spinal Fluid Gram Stain - Final 04/09/18 16:31 Cerebral Spinal Fluid - Cerebral Spinal Fluid CSF Culture - Final 04/08/18 04:00 Blood Blood Culture - Preliminary 04/08/18 00:34 Blood Blood Culture - Preliminary 04/05/18 03:56 Blood Blood Culture - Final 04/06/18 18:41 Urine - Clean Void Mid-Stream Urine Culture - Final 04/05/18 04:04 Blood Blood Culture - Preliminary Gram positive cocci 04/05/18 05:40 Stool Stool Culture - Final 04/05/18 05:40 Stool Hemorrhagic E.coli Culture - Final 04/06/18 22:35 Stool C. difficile GDH Antigen & Toxins - Final 04/03/18 10:00 Blood Blood Culture - Final Enterococcus species 04/03/18 09:22 Blood Blood Culture - Final Enterococcus species 04/05/18 05:40 Stool Fecal Leukocyte Stain - Final 04/04/18 23:36 Nose - Both Right and Left MRSA (PCR) - Final Medications Active Medications: Acetaminophen (Tylenol) 650 mg PO Q6HP PRN PRN Reason: PAIN/FEVER > 101 Albuterol Sulfate (Ventolin) 2.5 mg NEB Q2HP PRN PRN Reason: Shortness Of Breath Amlodipine Besylate (Norvasc) 10 mg PO QHS [facility] Aspirin (Aspirin) 81 mg PO DAILY [facility] Atorvastatin Calcium (Lipitor) 20 mg PO HS [facility] Dextrose (Dextrose 50%) 0 ml IV UD PRN PRN Reason: Hypoglycemia Diagnostic Test (Pha) (Accu-Chek) 1 each FS ACHS [facility] Last Admin: 04/11/18 13:03 Dose: 1 each Gentamicin Sulfate (Gentamicin Per Pharmacy) 1 order IV UD [facility] Glucose (Insta-Glucose) 15 gm PO PRN PRN PRN Reason: Hypoglycemia Heparin Sodium (Porcine) (Heparin) 5,000 unit SQ Q12 [facility] Hydralazine HCl (Apresoline) 0 mg IV Q2HP PRN PRN Reason: Hypertension Ampicillin Sodium 2 gm/ Sodium (Chloride) 100 mls @ 100 mls/hr IV Q12H [facility] Magnesium Sulfate (Magnesium Sulfate) 2 gm in 50 mls @ 25 mls/hr IV PRN PRN PRN Reason: Mg = or < 1.7 Insulin Human Lispro (Humalog) 0 unit SQ ACHS [facility]; Protocol Last Admin: 04/11/18 13:03 Dose: Labetalol HCl (Trandate) 0 mg IV Q10M PRN PRN Reason: Hypertension Metoprolol Tartrate (Lopressor) 50 mg PO BID [facility] Multivit/Ca Carb/B Cmplx/FA/Prenat (Diatx) 1 tab PO BID [facility] Naloxone HCl (Narcan) 0.1 mg IV Q2MIN PRN PRN Reason: Opiate Reversal Ondansetron HCl (Zofran) 4 mg IV Q6HP PRN PRN Reason: Nausea And Vomiting Oxycodone HCl (Roxicodone) 5 mg PO Q4HP PRN PRN Reason: pain not responding to tylenol Sevelamer Carbonate (Renvela) 1,600 mg PO TIDAC [facility] Last Admin: 04/11/18 13:03 Dose: 1,600 mg Sodium Chloride (Saline Flush) 10 ml IV Q8 [facility] Last Admin: 04/11/18 13:44 Dose: 10 ml Thiamine HCl (Vitamin B1) 100 mg PO DAILY [facility] Assessment and Plan - Narrative A/P Narrative: A: 1. 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 Blood cultures from 04/08- so far Tunneled HD catheter removed on 04/04 -Temporary HD catheter placed 04/06/18 - The isolate from 04/05: E fecalis has high level Gent synergy 2. Altered mental status: Much improved. LP unremarkable on cell count, TP, Glu , Cx negative -Secondary to encephalopathy due to buildup of IV ceftriaxone in absence of regular intermittent hemodialysis Recommendations: - Continue IV ampicillin 2 g every 12 hours, day 4 -Continue IV gentamicin 1 mg/kg (adj BW) q48 hrs with 50% of normal renal fxn dose given after 4 hrs of HD. Will use post-HD troughs [to be drawn 4 hrs after HD] to guide dosing [ target for trough <1]. Pharmacy helping with dosing and troughs. Appreciate their assistance -Plan to place a tunneled HD line tomorrow Will plan for outpatient IV antibiotics as follows: IV ampicillin 2 g every 12 hours, and IV gentamicin 1 mg/kg (adj BW) q48 hrs with 50% of normal renal fxn dose given after 4 hrs of HD Start date: April 08 Stop date: May 20 Follow-up labs: CBC and BMP, gentamicin trough [post HD, to be drawn 4 hours after HD] once weekly, ESR and CRP every other week We will place a follow-up appointment in 5 weeks or so in outpatient ID clinic will follow Derrick Cody MD Infectious diseases
[2018-04-11] MEDS: amLODIPine 10 MG TABLET PO SCH (22:29)
[2018-04-11] MEDS: ATORVASTATIN 20 MG TABLET PO SCH (22:30)
--- NOTE | 2018-04-12 06:05 | Nephrology Progress Note ---
Subjective Patient information: Note initiated : 04/12/18 at 6:03 am Eb Cornell is a [id number] male admitted on 04/03/18 for positive blood cultures which grew enterococcus species. Chief Complaint: Positive blood cultures Principal diagnosis: Acute kidney injury, hemodialysis dependent Interval history: Tunneled hemodialysis catheter removal at [facility] after hemodialysis at [facility] on Temporary hemodialysis catheter placement and SCAR at [facility] on 04/06/18 Pertinent ROS: Weakness No shortness of breath No chest pain Objective - Vital Signs Vital signs: Vital Signs Temp Pulse Resp BP BP BP BP 04/12/18 04:30 88 12 130/55 04/12/18 03:40 97.4 F 83 18 136/60 04/12/18 00:00 98.9 F 73 18 150/74 04/11/18 20:00 98.6 F 96 H 20 126/48 04/11/18 16:00 97 F 20 144/56 04/11/18 12:00 97.0 F 67 20 151/51 04/11/18 09:00 21 04/11/18 08:00 23 H 04/11/18 07:02 13 134/49 04/11/18 07:00 14 Pulse Ox 04/12/18 04:30 98 04/12/18 03:40 97 04/12/18 00:00 97 04/11/18 20:00 97 04/11/18 16:00 96 04/11/18 12:00 100 04/11/18 09:00 04/11/18 08:00 04/11/18 07:02 04/11/18 07:00 Intake and Output 04/11/18 04/12/18 04/12/18 21:59 05:59 13:59 Intake Total 400 / 400 400 / 400 Balance 400 / 400 400 / 400 Intake: Oral 400 / 400 400 / 400 Other: Meal Health shakes (2) Percent of Meal Consumed 75% Feeding Ability Independent Weight 259 lb Intake & Output: Intake & Output 04/11/18 04/12/18 04/12/18 21:59 05:59 13:59 Intake Total 400 / 400 400 / 400 Balance 400 / 400 400 / 400 Weight 259 lb Intake: Oral 400 / 400 400 / 400 Other: Meal Health shakes (2) Percent of Meal Consumed 75% Feeding Ability Independent - General Appearance General appearance: chronically ill, frail EENT: mucous membranes moist Neck: supple Respiratory: clear Cardiology: edema Gastrointestinal: no tenderness Integumentary: warm and dry Neurologic: no focal deficit Musculoskeletal: no deformities Psychiatric: mood/affect appropriate, cooperative - Lab 04/11/18 04:00 04/11/18 04:00 Most recent lab results Calcium 8.2 mg/dl (8.6-10.4) L 04/11/18 04:00 Phosphorus 4.8 mg/dL (2.7-4.5) H 04/11/18 04:00 Magnesium 1.9 mg/dL (1.6-2.5) 04/11/18 04:00 Assessment and Plan (1) Acute on chronic renal failure Eb Cornell is a [id number] male with acute kidney injury, likely acute tubular necrosis on chronic kidney disease stage 3 requiring acute hemodialysis at [facility], persistent non-nephrotic range proteinuria, vitamin D deficiency associated with secondary hyperparathyroidism of renal origin, chronic anemia associated with chronic kidney disease, bilateral lower extremity edema, hypertension, diabetes mellitus type 2, admitted on 04/03/18 for positive blood cultures which grew enterococcus species. Acute kidney injury, likely acute tubular necrosis on chronic kidney disease stage 3 requiring acute hemodialysis at [facility]. 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 Acute encephalopathy, improved Temporary hemodialysis catheter dysfunction, improved Progress: Tunneled hemodialysis catheter removal at [facility] after hemodialysis at [facility] on 04/04/18 Temporary hemodialysis catheter placement and SCAR at [facility] on 04/06/18 Last hemodialysis on 04/10/18 Pulled out temporary hemodialysis catheter Plan: Tunneled hemodialysis catheter and picc line for outpatient IV antibiotic at [facility] today Hemodialysis tomorrow Status: Acute Priority: High Qualifiers: Acute renal failure type: with acute tubular necrosis Chronic kidney disease stage: stage 3 (moderate) Qualified Code(s): N17.0 - Acute kidney failure with tubular necrosis; N18.3 - Chronic kidney disease, stage 3 (moderate ) (2) Metabolic acidosis Plan: Sodium Bicarbonate 1300 mg three times daily ordered for metabolic acidosis Hemodialysis today Status: Resolved Priority: Medium
[2018-04-12] MEDS: INSULIN LISPRO 1 UNIT/0.01 ML UNIT SQ SCH ×4 (07:51→20:54)
[2018-04-12] MEDS: HEPARIN 5,000 UNIT/ML VIAL SQ SCH ×2 (08:17→20:56)
[2018-04-12] MEDS: 0.9 % SODIUM CHLORIDE 10 ML SYRINGE IV SCH ×3 (08:22→20:54)
[2018-04-12] MEDS: SEVELAMER 800 MG TABLET PO SCH ×3 (08:22→17:33)
[2018-04-12] MEDS: METOPROLOL TARTRATE 25 MG TABLET PO SCH ×2 (08:23→20:55)
[2018-04-12] MEDS: ASPIRIN 81 MG TAB.CHEW PO SCH (08:23)
[2018-04-12] MEDS: THIAMINE 100 MG TABLET PO SCH (08:24)
[2018-04-12] MEDS: AMPICILLIN SODIUM 2 GM in 0.9 % SODIUM CHLORIDE 100 ML IV SCH ×2 (08:55→20:54)
[2018-04-12] MEDS: FOLIC ACID/VITAMIN B COMP W-C 1 TAB TABLET PO SCH ×2 (08:56→20:55)
[2018-04-12 11:01] LABS: Basophils # (Auto) 0 K/mcL (0.0-0.3); Basophils % (Auto) 0.4 % (0.0-2.0); Eosinophils # (Auto) 0.2 K/mcL (0.0-0.7); Eosinophils % (Auto) 1.3 % (0.0-7.0); Granulocytes % (Auto) 71.9 % (38.0-78.0); Lymphocytes # (Auto) 2.2 K/mcL (1.5-4.8); Lymphocytes % (Auto) 19.4 % (15.5-49.0); Mean Cell Volume 81.6 fL (80.0-100.0); Mean Corpuscular HGB Conc 32.9 g/dL (31.0-36.0); Mean Corpuscular Hemoglobin 26.9 pg (26.0-34.0); Monocytes # (Auto) 0.8 K/mcL (0.1-0.9); Platelet Count 400 K/mcL (140-440); Red Cell Distribution Width 17.3 % (11.5-14.5)
[2018-04-12 11:17] LABS: ALT/SGPT < 5 U/l (0-40); Albumin 2.5 gm/dL (3.2-5.2); Albumin/Globulin Ratio 0.6 (1.0-2.3); Alkaline Phosphatase 111 U/L (39-117); Bilirubin,Direct < 0.2 mg/dL (0.0-0.3); Blood Urea Nitrogen 30 mg/dl (8-23); Gamma Glutamyl Transpeptidase 47 U/L (8-61); Uric Acid 5.4 mg/dL (2.5-8.0)
--- NOTE | 2018-04-12 13:15 | Internal Med Progress Note ---
Medical - PN: Subj Patient information: Note initiated : 04/12/18 at 1:01 pm Service Date, if different from initiated Date: [] Patient: Eb Cornell a 72 y/o M admitted on 04/03/18 for Enterococcus Fecalis Bacteremia . Chief Complaint: [] Interval history: Mr. Cornell is a 72 year old M Who is a difficult historian. He was seen in the ER by his artist model after positive blood culture. It grew gram-positive cocci. In trying to gather why the blood culture was done sounds like he had some labs that were done which were abnormal suspect may be he had a white blood cell count that was elevated and the workup included blood cultures as her seem to be no clear source at the time. He has no complaints at this time. Denies any recent sick contacts. However he has been in the hospital recently for an amputation of the right lower extremity. 04/04 Slept well, no events. Plan to get tunneled catheter removed and SCAR done over at [facility]. 04/05 Patient became altered over at [facility] after the after removal of HD cath. Was supposed to go for SCAR but felt to be too compromised. Patient arrived back [facility] late in the day. Evaluated and found to be mumbling and following minimal commands. Vital signs are stable. A stat CT brain was ordered which showed Moderate atrophy throughout with chronic ischemic changes throughout as well as some remote infarcts in the left caudate nucleus and deep left frontal white matter but no acute findings. An ABG was ordered which showed a conflicting numbers with rate extremely low oxygen but did not cooperate with his pulse ox as well as a very high pH and low CO2. The machine was calibrated rated and a repeat draw was done which revealed an oxygen that cooperated with the pulse ox, however his pH was still high and his CO2 was low. There was a concernn for a lab error. However further investigation included a chemistry panel which showed a little bit low chloride as well as a low phosphorus other than that it was unremarkable. And repeat venous blood gas was drawn which continued to show a high pH which is just minimally improved as well as a low CO2. Patient did get dialysis today. Discussed case with artist model. We gave the patient IV fluid and also replaced his phosphorus. And ordered follow- up VBG after fluids which was done the next morning. This morning the patient was still quite confused and lethargic at shift change. However when I saw him around midmorning he had started to clear significantly. He was answering questions appropriately. He still cannot tell me where he is at, But seem to be much more clear minded than last night and even this morning. at bedside. 04/06 Per nursing did not sleep well last night, seemed a little bit agitated last night pulling at some lines and wires. Seems pleasant this morning when I talked to him. No new complaints. Still has some confusion answer some questions with appropriately other questions unable to answer correctly 04/07 Patient had SCAR done yesterday with evidence of vegetation on the aortic valve. Also had insertion of a temporary HD catheter in order to get hemodialysis today. No issues overnight. No complaints per the patient. Mentation seems to be a little bit more clear this morning. Getting dialysis. 04/08 No overnight events. Patient mentation clear this morning per nursing. Patient has no new complaints. Having difficulty with HD catheter. 04/09 More encephalopathic today, is noted that he was not able to get dialysis on Monday very long. Moving all extremities. But mentation yesterday was pretty good quite a difference today. Unable to gather full review of systems. He does answer some my questions but slowly and not sure how reliable. 04/10 Somnolent but answering questions, no overnight events. Patient did not eat much yesterday, did not take all of oral meds, the previous day he ate well. 04/11 Patient seen and examined, no acute overnight issues, this AM sitting in bed comfortably, had some breakfast and was reading a news paper. He is still confused ,but based on previous documentation, mental status is much better. The patient denies any acute complaint 04/12 patient seen examined, pt was confused overnight, he pulled out his HD catheter last night, does not remember any such event, he was quite confused this AM, aoox 1. He has had waxing and waning mental status, sometimes appears much more coherent, but often times just seems coherent and altert but has poor comphrension. The patient was scheduled to get his HD catheter and tunneled central line today for dialysis and IV Abx, its very likely now that he will be on chr dialysis. In the past the patient had expresssed desire of not to be on dialysis. We had a extensive conversation today regarding goals of care, with the patients family, the patient has had cognitive decline over the last few years, and has progressed more rapidly since his recent hospitalization. Overall he has poor prognosis, given his ESRD, poor mentation, cerebral atrophy, His life at present would be hospital/SNF which is something he would not have wanted. Family after reviewing all his options have advised to postpone the placement of catheter and they plan to have a family discussion today and provide with an answer for tomorrow Patient is on a close observation room, I am s tarting pt on seroquel qhs as well as depakote for his delirium. Dr Cuba and Dr Castro provided the family with their prospective on the patients medical condition from dialysis and endocarditis prospective. Pertinent ROS: Denies headache, dizziness Denies chest pain, palpitations Denies cough or shortness of breath Denies abdominal pain, nausea or vomiting. - Constitutional Vitals: Vital Signs Temp Pulse Resp BP Pulse Ox 98.1 F 87 16 135/60 96 04/12/18 11:35 04/12/18 11:35 04/12/18 11:35 04/12/18 11:35 04/12/18 11:35 Period Temp Pulse Resp BP Sys/Robles Pulse Ox Last 24 Hr 97 F-98.9 F 73-96 12-20 126-150/48-74 96-98 Intake and Output 04/11/18 04/12/18 04/12/18 21:59 05:59 13:59 Intake Total 400 / 400 500 / 500 100 / 100 Balance 400 / 400 500 / 500 100 / 100 Weight 259 lb Intake & Output: Intake & Output 04/11/18 04/12/18 04/12/18 21:59 05:59 13:59 Intake Total 400 / 400 500 / 500 100 / 100 Balance 400 / 400 500 / 500 100 / 100 Weight 259 lb Intake: IV 100 / 100 Ampicillin 2 gm In Sodium 100 / 100 Chloride 0.9% 100 ml @ 100 mls/ hr IV Q12H [facility] Rx#:[id number] Oral 400 / 400 400 / 400 100 / 100 Other: Meal Health shakes (2) Percent of Meal Consumed 75% Feeding Ability Independent Exam: Constitutional; Afebrile, cooperative, alert, not in distress. Eyes- No icterus, , No periorbital swelling Ears- Ext ear normal, hearing normal to conversation. Neck- Midline trachea, supple Respiratory system: Air Entry equal on both sides, No crackles or wheezing, no rhonchi. CVS- Rate rhythm regular, S1,S2 heard, no gallop, no rub. 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 Medical - PN: Obj Da - Labs CBC & Chem 7: 04/12/18 10:11 04/12/18 10:11 Labs: Abnormal Lab Results 04/12/18 04/12/18 04/12/18 10:11 10:11 10:10 WBC 11.5 H RBC 3.10 L Hgb 8.3 L Hct 25.3 L RDW 17.3 H MPV 6.8 L Gran # 8.3 H Lymph # (Auto) Lymphocytes % RBC Morphology Anisocytosis PT 34.0 H INR 3.3 H APTT 96 H Anion Gap BUN 30 H Creatinine 5.3 H* Glucose Calcium Phosphorus 5.1 H Ammonia Lactate Dehydrogenase C-Reactive Protein Albumin 2.5 L Globulin 4.3 H Albumin/Globulin Ratio 0.6 L Triglycerides 181 H Vitamin B12 Prolactin CSF RBC CSF Lymphocytes 04/11/18 04/11/18 04/10/18 04:00 04:00 04:00 WBC RBC 2.78 L Hgb 7.5 L Hct 22.6 L RDW 17.5 H MPV 7.0 L Gran # Lymph # (Auto) 1.3 L Lymphocytes % RBC Morphology Anisocytosis PT INR APTT Anion Gap BUN Creatinine 4.1 H Glucose Calcium 8.2 L Phosphorus 4.8 H Ammonia Lactate Dehydrogenase C-Reactive Protein Albumin 2.1 L Globulin 3.8 H Albumin/Globulin Ratio 0.6 L Triglycerides Vitamin B12 Prolactin 32.2 H CSF RBC CSF Lymphocytes 04/10/18 04/10/18 04/09/18 04:00 04:00 16:55 WBC 11.7 H RBC 2.98 L Hgb 7.9 L Hct 24.3 L RDW 17.4 H MPV 7.2 L Gran # Lymph # (Auto) Lymphocytes % 14 L RBC Morphology Abnorm A Anisocytosis 1+ A PT INR APTT Anion Gap 17.0 H BUN 30 H Creatinine 5.1 H* Glucose 63 L Calcium 8.3 L Phosphorus 6.3 H* Ammonia Lactate Dehydrogenase 280 H C-Reactive Protein 13.7 H Albumin 2.5 L Globulin Albumin/Globulin Ratio 0.7 L Triglycerides 165 H Vitamin B12 1942 H Prolactin CSF RBC CSF Lymphocytes 04/09/18 04/09/18 04/09/18 16:55 16:30 04:19 WBC RBC Hgb Hct RDW MPV Gran # Lymph # (Auto) Lymphocytes % RBC Morphology Anisocytosis PT INR APTT Anion Gap BUN Creatinine Glucose Calcium Phosphorus Ammonia 12 L Lactate Dehydrogenase C-Reactive Protein Albumin Globulin Albumin/Globulin Ratio Triglycerides Vitamin B12 Prolactin 31.0 H CSF RBC 2 H CSF Lymphocytes 84 H Meds: Medications Acetaminophen (Tylenol) 650 mg PO Q6HP PRN PRN Reason: PAIN/FEVER > 101 Albuterol Sulfate (Ventolin) 2.5 mg NEB Q2HP PRN PRN Reason: Shortness Of Breath Amlodipine Besylate (Norvasc) 10 mg PO QHS [facility] Last Admin: 04/11/18 22:29 Dose: 10 mg Aspirin (Aspirin) 81 mg PO DAILY [facility] Last Admin: 04/12/18 08:23 Dose: 81 mg Atorvastatin Calcium (Lipitor) 20 mg PO HS [facility] Last Admin: 04/11/18 22:30 Dose: 20 mg Dextrose (Dextrose 50%) 0 ml IV UD PRN PRN Reason: Hypoglycemia Diagnostic Test (Pha) (Accu-Chek) 1 each FS ACHS [facility] Last Admin: 04/12/18 11:44 Dose: 1 each Divalproex Sodium (Depakote Sprinkles) 250 mg PO BID [facility] Gentamicin Sulfate (Gentamicin Per Pharmacy) 1 order IV UD [facility] Glucose (Insta-Glucose) 15 gm PO PRN PRN PRN Reason: Hypoglycemia Heparin Sodium (Porcine) (Heparin) 5,000 unit SQ Q12 [facility] Last Admin: 04/12/18 08:17 Dose: Not Given Hydralazine HCl (Apresoline) 0 mg IV Q2HP PRN PRN Reason: Hypertension Ampicillin Sodium 2 gm/ Sodium (Chloride) 100 mls @ 100 mls/hr IV Q12H [facility] Last Admin: 04/12/18 08:55 Dose: 100 mls/hr Magnesium Sulfate (Magnesium Sulfate) 2 gm in 50 mls @ 25 mls/hr IV PRN PRN PRN Reason: Mg = or < 1.7 Insulin Human Lispro (Humalog) 0 unit SQ ACHS [facility]; Protocol Last Admin: 04/12/18 11:45 Dose: Not Given Labetalol HCl (Trandate) 0 mg IV Q10M PRN PRN Reason: Hypertension Metoprolol Tartrate (Lopressor) 50 mg PO BID [facility] Last Admin: 04/12/18 08:23 Dose: 50 mg Multivit/Ca Carb/B Cmplx/FA/Prenat (Diatx) 1 tab PO BID [facility] Last Admin: 04/12/18 08:56 Dose: 1 tab Naloxone HCl (Narcan) 0.1 mg IV Q2MIN PRN PRN Reason: Opiate Reversal Ondansetron HCl (Zofran) 4 mg IV Q6HP PRN PRN Reason: Nausea And Vomiting Oxycodone HCl (Roxicodone) 5 mg PO Q4HP PRN PRN Reason: pain not responding to tylenol Quetiapine Fumarate (Seroquel) 25 mg PO [facility] Sevelamer Carbonate (Renvela) 1,600 mg PO TIDAC [facility] Last Admin: 04/12/18 12:28 Dose: 1,600 mg Sodium Chloride (Saline Flush) 10 ml IV Q8 [facility] Last Admin: 04/12/18 08:22 Dose: 10 ml Thiamine HCl (Vitamin B1) 100 mg PO DAILY [facility] Last Admin: 04/12/18 08:24 Dose: 100 mg - ABG Interpretation ABG results: 04/04/18 04/05/18 04/05/18 21:29 04:04 15:14 ABG Methemoglobin 0.3 L 0.3 L 0.3 L VBG pH 7.65 H* 7.52 H 7.51 H VBG pCO2 23.6 L 34.8 L 32.6 L VBG pO2 180 H 54 H 145 H VBG HCO3 25.2 27.9 25.4 VBG Total CO2 26.0 29.0 26.4 VBG O2 Saturation 93.6 H 85.2 H 94.1 H VBG Base Excess 4.8 H 4.8 H 2.3 H Medical - PN: A/P - Time Spent With Patient Total time spent is greater than 50% in coordination of care (as documented) at patient's floor/unit and/or counseling patient: - Narrative A/P Narrative: A: *Endocarditis w/Enterococcus faecalis: improving. 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 pt on ampicillin as well as gentamycin per Infectious disease. -Tunnel cath removed (04/04), Temp cath placed (04/06) -SCAR (04/06) showing large vegetation on noncoronary cusp of Aortic valve ( 1.0cm mobile vegetation) -hold off on catheter placement till tomorrow *Bacteremia: 04/03 (2of2 sets) & 04/05 (1of2 sets) cultures growing Enterococcus faecalis, repeat cultures are negative *ESRD: Follows with Dr. Schwarz/ Dr Cuba now consulting. (covering physician) -anuric, Nephrology consulted, - on HD, needs tunneled catheter placement. *Resp and concomitant [place] contraction alkalosis: improved after IVF fluids. *Encephalopathy/Delerium: metabolic/critical illness with likely underlying vascular dementia (CT brain with Moderate atrophy & chronic ischemic changes throughout w/remote lacunar infarcts in the left caudate nucleus and the deep left frontal white matter - started to note memory issues several years ago ) -Mentation has been poor since hospitalization in December with waxing/waning -Waxing/waning here, better today -MRI no septic emboli, just diffuse atrophy, old infarct, chronic white matter ischemic dz -LP unremarkable -could also be related to missing HD from Cath complications - clinically better after switching from rocephin to ampicililn, -d/c keppra for now. start on po thiamine (EEG shows encephalopathy, no seizure activity) - start no seroquel qhs, and depakote, - Has been confused it seems since his admission to [facility] in the past. - MR shows snigficant atrophy, dialated ventricles, pt also cognitive decline over the last few years. *h/o CVA's as noted on neuroimaging: states he takes ASA and cholesterol medication at home, . 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 Given his overall poor condition its very unlikely that this patient will have any meaning ful quality of life. Family verbalizes understanding. Continue with rehab, OT/PT/ST DVT hep sq DNR code status Plan for HD catheter, Tunneled cental line tomorrow., anticipate d/c to snf if patient's family chooses to continue treatment Should they consider withdrawal of care, will have to set up palliative/hospice care Medical - PN: Qual - VTE Deep Vein Thrombosis/Pulmonary Embolism Present on Admission: No
--- NOTE | 2018-04-12 20:28 | Infectious Disease Prog Note ---
Subjective Patient information: Note initiated : 04/12/18 at 8:25 pm Service Date, if different from initiated Date: [] Patient: Eb Cornell 72 y/o M admitted on 04/03/18 for Enterococcus Fecalis Bacteremia . Chief Complaint: [] Principal diagnosis: Acute kidney injury, hemodialysis dependent Interval history: pt doing better, seems back to baseline. No fever/cough/sob, nausea/vomiting/ diarrhea. Family meeting today: discussion on goals of care, whether to pursue antibiotic therapy and dialysis or not. Objective Objective Narrative: ao x 3, no thrush chest cta s1 s2 normal, has 2/6 ESM in Rt 2nd ICS bs ++ nttd - Vital Signs Vital signs: Vital Signs Temp Pulse Resp BP BP Pulse Ox 04/12/18 16:00 36.7 C 80 16 140/52 97 04/12/18 11:35 36.7 C 87 16 135/60 96 04/12/18 08:00 36.6 C 82 16 145/64 97 04/12/18 04:30 88 12 130/55 98 04/12/18 03:40 36.3 C 83 18 136/60 97 04/12/18 00:00 37.2 C 73 18 150/74 97 Intake and Output 04/12/18 04/12/18 04/12/18 05:59 13:59 21:59 Intake Total 500 / 500 100 / 100 220 / 220 Balance 500 / 500 100 / 100 220 / 220 Intake: IV 100 / 100 Ampicillin 2 gm In Sodium 100 / 100 Chloride 0.9% 100 ml @ 100 mls/ hr IV Q12H [facility] Rx#:[id number] Oral 400 / 400 100 / 100 220 / 220 Other: Meal Health shakes (2) Lunch Percent of Meal Consumed 75% 25% Feeding Ability Independent Assist with Tray Set Up Stool Size Smear Stool Color Brown Stool Consistency Soft # Bowel Movements 1 # of times incontinent of 1 Bowels Intake & Output: Intake & Output 04/12/18 04/12/18 04/12/18 05:59 13:59 21:59 Intake Total 500 / 500 100 / 100 220 / 220 Balance 500 / 500 100 / 100 220 / 220 Intake: IV 100 / 100 Ampicillin 2 gm In Sodium 100 / 100 Chloride 0.9% 100 ml @ 100 mls/ hr IV Q12H [facility] Rx#:[id number] Oral 400 / 400 100 / 100 220 / 220 Other: Meal Health shakes (2) Lunch Percent of Meal Consumed 75% 25% Feeding Ability Independent Assist with Tray Set Up Stool Size Smear Stool Color Brown Stool Consistency Soft # Bowel Movements 1 # of times incontinent of 1 Bowels - Lab 04/12/18 10:11 04/12/18 10:11 Most recent lab results Calcium 8.7 mg/dl (8.6-10.4) 04/12/18 10:11 Phosphorus 5.1 mg/dL (2.7-4.5) H 04/12/18 10:11 Magnesium 2.0 mg/dL (1.6-2.5) 04/12/18 10:11 Microbiology 04/08/18 04:00 Blood Blood Culture - Preliminary 04/08/18 00:34 Blood Blood Culture - Preliminary 04/09/18 16:31 Cerebral Spinal Fluid - Cerebral Spinal Fluid Gram Stain - Final 04/09/18 16:31 Cerebral Spinal Fluid - Cerebral Spinal Fluid CSF Culture - Final 04/05/18 03:56 Blood Blood Culture - Final 04/06/18 18:41 Urine - Clean Void Mid-Stream Urine Culture - Final 04/05/18 04:04 Blood Blood Culture - Preliminary Gram positive cocci 04/05/18 05:40 Stool Stool Culture - Final 04/05/18 05:40 Stool Hemorrhagic E.coli Culture - Final 04/06/18 22:35 Stool C. difficile GDH Antigen & Toxins - Final 04/03/18 10:00 Blood Blood Culture - Final Enterococcus species 04/03/18 09:22 Blood Blood Culture - Final Enterococcus species 04/05/18 05:40 Stool Fecal Leukocyte Stain - Final 04/04/18 23:36 Nose - Both Right and Left MRSA (PCR) - Final Medications Active Medications: Acetaminophen (Tylenol) 650 mg PO Q6HP PRN PRN Reason: PAIN/FEVER > 101 Albuterol Sulfate (Ventolin) 2.5 mg NEB Q2HP PRN PRN Reason: Shortness Of Breath Amlodipine Besylate (Norvasc) 10 mg PO QHS [facility] Last Admin: 04/11/18 22:29 Dose: 10 mg Aspirin (Aspirin) 81 mg PO DAILY [facility] Last Admin: 04/12/18 08:23 Dose: 81 mg Atorvastatin Calcium (Lipitor) 20 mg PO HS [facility] Last Admin: 04/11/18 22:30 Dose: 20 mg Dextrose (Dextrose 50%) 0 ml IV UD PRN PRN Reason: Hypoglycemia Diagnostic Test (Pha) (Accu-Chek) 1 each FS [facility] Last Admin: 04/12/18 17:34 Dose: 1 each Admin: 04/12/18 11:44 Dose: 1 each Admin: 04/12/18 07:52 Dose: 1 each Admin: 04/11/18 20:39 Dose: 1 each Admin: 04/11/18 18:18 Dose: 1 each Admin: 04/11/18 13:03 Dose: 1 each Divalproex Sodium (Depakote Sprinkles) 250 mg PO BID [facility] Gentamicin Sulfate (Gentamicin Per Pharmacy) 1 order IV UD [facility] Glucose (Insta-Glucose) 15 gm PO PRN PRN PRN Reason: Hypoglycemia Heparin Sodium (Porcine) (Heparin) 5,000 unit SQ Q12 [facility] Last Admin: 04/12/18 08:17 Dose: Not Given Non-Admin Reason: Clinical Judgement Admin: 04/11/18 22:30 Dose: Not Given Non-Admin Reason: Patient Refused Hydralazine HCl (Apresoline) 0 mg IV Q2HP PRN PRN Reason: Hypertension Ampicillin Sodium 2 gm/ Sodium (Chloride) 100 mls @ 100 mls/hr IV Q12H [facility] Last Admin: 04/12/18 08:55 Dose: 100 mls/hr Infusion: 04/11/18 23:29 Dose: 100 mls/hr Admin: 04/11/18 22:29 Dose: 100 mls/hr Magnesium Sulfate (Magnesium Sulfate) 2 gm in 50 mls @ 25 mls/hr IV PRN PRN PRN Reason: Mg = or < 1.7 Insulin Human Lispro (Humalog) 0 unit SQ [facility]; Protocol Last Admin: 04/12/18 17:33 Dose: Not Given Non-Admin Reason: Clinical Judgement Admin: 04/12/18 11:45 Dose: Not Given Non-Admin Reason: Labs Outside of Range Admin: 04/12/18 07:51 Dose: Not Given Non-Admin Reason: Clinical Judgement Admin: 04/11/18 22:30 Dose: 2 unit Admin: 04/11/18 18:23 Dose: 1 unit Admin: 04/11/18 13:03 Dose: Labetalol HCl (Trandate) 0 mg IV Q10M PRN PRN Reason: Hypertension Metoprolol Tartrate (Lopressor) 50 mg PO BID [facility] Last Admin: 04/12/18 08:23 Dose: 50 mg Comments: 145/60 p-81 Admin: 04/11/18 22:29 Dose: 50 mg Multivit/Ca Carb/B Cmplx/FA/Prenat (Diatx) 1 tab PO BID [facility] Last Admin: 04/12/18 08:56 Dose: 1 tab Admin: 04/11/18 22:29 Dose: 1 tab Naloxone HCl (Narcan) 0.1 mg IV Q2MIN PRN PRN Reason: Opiate Reversal Ondansetron HCl (Zofran) 4 mg IV Q6HP PRN PRN Reason: Nausea And Vomiting Oxycodone HCl (Roxicodone) 5 mg PO Q4HP PRN PRN Reason: pain not responding to tylenol Quetiapine Fumarate (Seroquel) 25 mg PO [facility] Sevelamer Carbonate (Renvela) 1,600 mg PO TIDAC [facility] Last Admin: 04/12/18 17:33 Dose: 1,600 mg Admin: 04/12/18 12:28 Dose: 1,600 mg Admin: 04/12/18 08:22 Dose: 1,600 mg Admin: 04/11/18 18:15 Dose: 1,600 mg Admin: 04/11/18 13:03 Dose: 1,600 mg Sodium Chloride (Saline Flush) 10 ml IV Q8 [facility] Last Admin: 04/12/18 17:34 Dose: Not Given Non-Admin Reason: Duplicate Admin: 04/12/18 08:22 Dose: 10 ml Admin: 04/11/18 22:31 Dose: 10 ml Admin: 04/11/18 13:44 Dose: 10 ml Thiamine HCl (Vitamin B1) 100 mg PO DAILY [facility] Last Admin: 04/12/18 08:24 Dose: 100 mg Assessment and Plan - Narrative A/P Narrative: A: 1. 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 Blood cultures from 04/08- so far Tunneled HD catheter removed on 04/04 -Temporary HD catheter placed 04/06/18 - The isolate from 04/05: E fecalis has high level Gent synergy 2. Altered mental status: back to baseline. LP unremarkable on cell count, TP, Glu, Cx negative -Secondary to encephalopathy due to buildup of IV ceftriaxone in absence of regular intermittent hemodialysis Recommendations: - Continue IV ampicillin 2 g every 12 hours, day 5 -Continue IV gentamicin 1 mg/kg (adj BW) q48 hrs with 50% of normal renal fxn dose given after 4 hrs of HD. Pharmacy to help with troughs [target for trough < 1]. -Plan to place a tunneled HD line tomorrow, if family and pt agreeable Will plan for outpatient IV antibiotics as follows: IV ampicillin 2 g every 12 hours, and IV gentamicin 1 mg/kg (adj BW) q48 hrs with 50% of normal renal fxn dose given after 4 hrs of HD Start date: April 08 Stop date: May 20 Follow-up labs: CBC and BMP, gentamicin trough (pre-HD) once weekly, ESR and CRP every other week We will place a follow-up appointment in 5 weeks or so in outpatient ID clinic will follow Derrick Cody MD Infectious diseases
[2018-04-12] MEDS: DIVALPROEX 125 MG CAP.SPRINK PO SCH (20:55)
[2018-04-12] MEDS: ATORVASTATIN 20 MG TABLET PO SCH (20:55)
[2018-04-12] MEDS: amLODIPine 10 MG TABLET PO SCH (20:56)
[2018-04-12] MEDS ORDERED: QUEtiapine 25 MG TABLET PO SCH (21:00)
[2018-04-13] MEDS: 0.9 % SODIUM CHLORIDE 10 ML SYRINGE IV SCH ×2 (06:12→14:49)
--- NOTE | 2018-04-13 06:57 | Nephrology Progress Note ---
Subjective Patient information: Note initiated : 04/13/18 at 6:55 am Eb Cornell is a [id number] male admitted on 04/03/18 for positive blood cultures which grew enterococcus species. Chief Complaint: Positive blood cultures Principal diagnosis: Enterococcal endocarditis; acute kidney injury, hemodialysis dependent Interval history: Tunneled hemodialysis catheter removal at [facility] after hemodialysis at [facility] on Temporary hemodialysis catheter placement and SCAR at [facility] on 04/06/18 The patient pulled out temporary hemodialysis catheter on 04/12/18 Pertinent ROS: Weakness Confusion No shortness of breath No chest pain Objective - Vital Signs Vital signs: Vital Signs Temp Pulse Resp BP BP Pulse Ox 04/13/18 04:00 97.9 F 78 18 148/63 96 04/13/18 00:00 97.7 F 84 20 153/58 97 04/12/18 20:00 98.1 F 85 18 141/56 95 04/12/18 16:00 98.1 F 80 16 140/52 97 04/12/18 11:35 98.1 F 87 16 135/60 96 04/12/18 08:00 98 F 82 16 145/64 97 Intake and Output 04/12/18 04/13/18 04/13/18 21:59 05:59 13:59 Intake Total 220 / 220 0 / 0 Balance 220 / 220 0 / 0 Intake: Oral 220 / 220 0 / 0 Other: Meal Lunch Percent of Meal Consumed 25% Feeding Ability Assist with Tray Set Up Stool Size Smear Stool Color Brown Stool Consistency Soft # Bowel Movements 1 # of times incontinent of 1 Bowels Weight 265 lb Intake & Output: Intake & Output 04/12/18 04/13/18 04/13/18 21:59 05:59 13:59 Intake Total 220 / 220 0 / 0 Balance 220 / 220 0 / 0 Weight 265 lb Intake: Oral 220 / 220 0 / 0 Other: Meal Lunch Percent of Meal Consumed 25% Feeding Ability Assist with Tray Set Up Stool Size Smear Stool Color Brown Stool Consistency Soft # Bowel Movements 1 # of times incontinent of 1 Bowels - General Appearance General appearance: chronically ill, frail EENT: mucous membranes moist Neck: supple Respiratory: clear Cardiology: edema Gastrointestinal: no tenderness Integumentary: warm and dry Neurologic: no focal deficit, disoriented Musculoskeletal: no deformities Psychiatric: mood/affect appropriate, cooperative - Lab 04/12/18 10:11 04/12/18 10:11 Most recent lab results Calcium 8.7 mg/dl (8.6-10.4) 04/12/18 10:11 Phosphorus 5.1 mg/dL (2.7-4.5) H 04/12/18 10:11 Magnesium 2.0 mg/dL (1.6-2.5) 04/12/18 10:11 Assessment and Plan (1) Acute on chronic renal failure Eb Cornell is a [id number] male with acute kidney injury, likely acute tubular necrosis on chronic kidney disease stage 3 requiring acute hemodialysis at [facility], persistent non-nephrotic range proteinuria, vitamin D deficiency associated with secondary hyperparathyroidism of renal origin, chronic anemia associated with chronic kidney disease, bilateral lower extremity edema, hypertension, diabetes mellitus type 2, admitted on 04/03/18 for positive blood cultures which grew enterococcus species. Acute kidney injury, likely acute tubular necrosis on chronic kidney disease stage 3 requiring acute hemodialysis at [facility]. 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 Acute encephalopathy, improved The patient pulled out temporary hemodialysis catheter on 04/12/18 Progress: Tunneled hemodialysis catheter removal at [facility] after hemodialysis at [facility] on 04/04/18 Temporary hemodialysis catheter placement and SCAR at [facility] on 04/06/18 Last hemodialysis on 04/10/18 Plan: Family conference for goals of care Tunneled hemodialysis catheter and picc line for outpatient IV antibiotic at [facility] today if the patient and family agrees Hemodialysis today or tomorrow if tunneled hemodialysis catheter placed Addendum: The patient and family decided for hospice. Catheter placements and hemodialysis cancelled. Status: Acute Priority: High Qualifiers: Acute renal failure type: with acute tubular necrosis Chronic kidney disease stage: stage 3 (moderate) Qualified Code(s): N17.0 - Acute kidney failure with tubular necrosis; N18.3 - Chronic kidney disease, stage 3 (moderate )
[2018-04-13] MEDS: INSULIN LISPRO 1 UNIT/0.01 ML UNIT SQ SCH (07:14)
[2018-04-13] MEDS: DIVALPROEX 125 MG CAP.SPRINK PO SCH (08:22)
[2018-04-13] MEDS: FOLIC ACID/VITAMIN B COMP W-C 1 TAB TABLET PO SCH (08:22)
[2018-04-13] MEDS: SEVELAMER 800 MG TABLET PO SCH (08:22)
[2018-04-13] MEDS: METOPROLOL TARTRATE 25 MG TABLET PO SCH (08:23)
[2018-04-13] MEDS: ASPIRIN 81 MG TAB.CHEW PO SCH (08:23)
[2018-04-13] MEDS: THIAMINE 100 MG TABLET PO SCH (08:23)
[2018-04-13] MEDS: AMPICILLIN SODIUM 2 GM in 0.9 % SODIUM CHLORIDE 100 ML IV SCH (08:32)
[2018-04-13] MEDS: HEPARIN 5,000 UNIT/ML VIAL SQ SCH (08:37)
--- NOTE | 2018-04-13 10:50 | Discharge Summary ---
Medical - DS: Prov Patient information: Note initiated : 04/13/18 at 10:43 am Service Date, if different from initiated Date: [] Patient: Eb Cornell 72 y/o M admitted on 04/03/18 for Enterococcus Fecalis Bacteremia . Chief Complaint: [] Date of admission: 04/03/18 12:55 Discharge date: 04/13/18 Primary care physician: Allen Holliday Consults: 04/03/18 Consult to Physician [CONS] Stat Comment: Consulting Provider: Ernesto David Reason For Exam: Physician to Consult 04/03/18 14:43 Consult to Physician [CONS] Stat Comment: Consulting Provider: Derrick Cody Reason For Exam: Physician to Consult Discharging clinician: Ernesto David Medical - DS: Meds - Discharge Medications Prescriptions: Atropine 1% Ophth Drops 2 ml PO Q4HP PRN #10 bottle PRN Reason: excess secretions LORazepam [Ativan] 0.5 mg PO Q2HP PRN #20 tab PRN Reason: Anxiety morphine SULFATE [Morphine Sulfate] 0.25 ml PO Q2HP PRN #10 ml PRN Reason: Pain Ondansetron HCl [Zofran ODT] 4 mg SL Q4-6HP PRN #10 tab PRN Reason: Nausea Active and Home Medications: Home Medications acetaminophen 325 mg tablet 650 mg PO Q4HP PRN 02/27/18 [History Confirmed 04/03 Last Taken Unknown] docusate sodium 100 mg tablet 100 mg PO BID 02/27/18 [History Confirmed Last Taken 04/02/18 16:00] furosemide 80 mg tablet 80 mg PO BID tab 02/27/18 [History Confirmed 04/03/18 Last Taken 04/02/18 16:00] insulin glargine (U-100) 100 unit/mL subcutaneous solution 15 unit SUB-Q QAM ml 02/27/18 [History Confirmed 04/03/18 Last Taken 04/02/18 18:00] metoprolol tartrate 25 mg tablet 25 mg PO BID 02/27/18 [History Confirmed Last Taken 04/02/18] polyethylene glycol 3350 17 gram oral powder packet 17 g PO DAILYP PRN 02/27/18 [History Confirmed 04/03/18 Last Taken Unknown] sevelamer carbonate 800 mg tablet 1,600 mg PO TIDAC tab 02/27/18 [History Confirmed 04/03/18 Last Taken 04/02/18 17:00] sodium phosphates 19 gram-7 gram/118 mL enema 118 ml OK ONCE PRN 02/27/18 [ History Confirmed 04/03/18 Last Taken Unknown] Bisacodyl [Dulcolax] 10 mg OK DAILYP PRN 04/03/18 [History Confirmed 04/03/18 Last Taken Unknown] Folic Acid/Vit Bcomp,C [Nephro-Vinny Tablet] 0.8 mg PO BID 04/03/18 [History Confirmed 04/03/18 Last Taken 04/02/18 20:00] Magnesium Hydroxide [Milk of Magnesia] 400 mg PO DAILYP PRN 04/03/18 [History Confirmed 04/03/18 Last Taken Unknown] Sennosides [Senna] 8.6 mg PO PRN PRN 04/03/18 [History Confirmed 04/03/18 Last Taken Unknown] amLODIPine BESYLATE [Amlodipine Besylate] 5 mg PO QHS 04/03/18 [History Confirmed 04/06/18 Last Taken 04/02/18 22:00] Amlodipine Besylate 5 mg PO QAM 04/06/18 [History Confirmed 04/06/18 Last Taken Unknown] Atenolol 50 mg PO QDAY 04/06/18 [History Confirmed 04/06/18 Last Taken Unknown] Atorvastatin 20 mg PO HS 04/06/18 [History Confirmed 04/06/18 Last Taken Unknown ] Furosemide [Lasix] 20 mg PO BID 04/06/18 [History Confirmed 04/06/18 Last Taken Unknown] Klor-Con M10 10 meq PO BID 04/06/18 [History Confirmed 04/06/18 Last Taken Unknown] Metformin HCl ER 500 mg PO TID 04/06/18 [History Confirmed 04/06/18 Last Taken Unknown] Oxybutynin 5 mg PO BID 04/06/18 [History Confirmed 04/06/18 Last Taken Unknown] Relion Prime 1 strip TID PRN 04/06/18 [History Confirmed 04/06/18 Last Taken 06/12] Medical - DS: Hosp Hospital course: Mr. Cornell is a 72 year old M Who is a difficult historian. 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 It grew gram-positive cocci. In trying to gather why the blood culture was done sounds like he had some labs that were done which were abnormal suspect may be he had a white blood cell count that was elevated and the workup included blood cultures as her seem to be no clear source at the time. The patient workup showed enterococcus bacteremia, patient underwent SCAR at [facility] which showed large aortic valve vegetation. The patient was started on antibiotics with the guidance of infectious disease. Dialysis catheter was removed tip sent for culture grew coag negative staph but no enterococcus. The patient during the hospital stay was quite agitated and confused. The patient had waxing and waning episodes in which she would become extremely difficult to manage and then very calm cooperative and alert. 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 The patient had a negative LP done. The patient was responding well to endocarditis treatment. However his mental status Waxing and waning. The patient has had declining health over the last few months. On talking with the family it seemed that the patient's mental status and memory had been declining over the last few years. The patient was in acute hemodialysis patient however given his endocarditis, over all declining condition, and the fact that he will now be a chronic dialysis patient (something which he never wished to be ) the family elected to persue hospice care for this patient. The patients , daughters and other family members were present and agreeable with the plan of care. The patient will be discharged home today with home hospice. Discharge diagnosis: Aortic valve endocarditis, ESRD, Encephalopathy - Time Spent with Patient Total time spent providing and/or coordinating discharge services: Greater than 30 minutes Medical - DS: Exam - Constitutional Vitals: Vital Signs Temp Pulse Resp BP BP Pulse Ox 04/13/18 04:00 97.9 F 78 18 148/63 96 04/13/18 00:00 97.7 F 84 20 153/58 97 04/12/18 20:00 98.1 F 85 18 141/56 95 04/12/18 16:00 98.1 F 80 16 140/52 97 04/12/18 11:35 98.1 F 87 16 135/60 96 Intake and Output 04/12/18 04/13/18 04/13/18 21:59 05:59 13:59 Intake Total 320 / 320 0 / 0 Balance 320 / 320 0 / 0 Intake: IV 100 / 100 Ampicillin 2 gm In Sodium 100 / 100 Chloride 0.9% 100 ml @ 100 mls/ hr IV Q12H [facility] Rx#:[id number] Oral 220 / 220 0 / 0 Other: Meal Lunch Percent of Meal Consumed 25% Feeding Ability Assist with Tray Set Up Stool Size Smear Stool Color Brown Stool Consistency Soft # Bowel Movements 1 # of times incontinent of 1 Bowels Weight 265 lb Additional comments: Constitutional; Afebrile, cooperative, alert, not in distress. Respiratory system: Air Entry equal on both sides, No crackles or wheezing, no rhonchi. CVS- Rate rhythm regular, S1,S2 heard, no gallop, no rub. Abdomen- Soft nontender abdomen, no organomegaly, no tenderness, no guarding or rigidity, [employer]- AOOx2 , moving all extremities, no gross focal deficit noted. Medical - DS: Data Labs on day of discharge: Labs from last 24 hours 04/13/18 04/13/18 04/12/18 06:15 06:15 16:06 WBC Pending RBC Pending Hgb Pending Hct Pending MCV Pending MCH Pending MCHC Pending RDW Pending Plt Count Pending MPV Pending Gran % Lymph % (Auto) Coleman % (Auto) Eos % (Auto) Baso % (Auto) Gran # Lymph # (Auto) Coleman # (Auto) Eos # (Auto) Baso # (Auto) PT INR APTT Sodium Pending Potassium Pending Chloride Pending Carbon Dioxide Pending Anion Gap Pending BUN Pending Creatinine Pending GFR Calculation Pending Glucose Pending Uric Acid Pending Calcium Pending Phosphorus Pending Magnesium Pending Total Bilirubin Pending Direct Bilirubin Pending GGT Pending AST Pending ALT Pending Alkaline Phosphatase Pending Lactate Dehydrogenase Pending Total Protein Pending Albumin Pending Globulin Pending Albumin/Globulin Ratio Pending Triglycerides Pending Gentamicin Trough 1.4 Rheumatoid Factor 04/12/18 04/12/18 04/12/18 10:11 10:11 10:11 WBC 11.5 H RBC 3.10 L Hgb 8.3 L Hct 25.3 L MCV 81.6 MCH 26.9 MCHC 32.9 RDW 17.3 H Plt Count 400 MPV 6.8 L Gran % 71.9 Lymph % (Auto) 19.4 Coleman % (Auto) 7.0 Eos % (Auto) 1.3 Baso % (Auto) 0.4 Gran # 8.3 H Lymph # (Auto) 2.2 Coleman # (Auto) 0.8 Eos # (Auto) 0.2 Baso # (Auto) 0 PT INR APTT Sodium 138 Potassium 4.0 Chloride 97 Carbon Dioxide 25 Anion Gap 16.0 BUN 30 H Creatinine 5.3 H* GFR Calculation 10 Glucose 96 Uric Acid 5.4 Calcium 8.7 Phosphorus 5.1 H Magnesium 2.0 Total Bilirubin 0.4 Direct Bilirubin < 0.2 GGT 47 AST 19 ALT < 5 Alkaline Phosphatase 111 Lactate Dehydrogenase 246 Total Protein 6.8 Albumin 2.5 L Globulin 4.3 H Albumin/Globulin Ratio 0.6 L Triglycerides 181 H Gentamicin Trough Rheumatoid Factor < 10 04/12/18 10:10 WBC RBC Hgb Hct MCV MCH MCHC RDW Plt Count MPV Gran % Lymph % (Auto) Coleman % (Auto) Eos % (Auto) Baso % (Auto) Gran # Lymph # (Auto) Coleman # (Auto) Eos # (Auto) Baso # (Auto) PT 34.0 H INR 3.3 H APTT 96 H Sodium Potassium Chloride Carbon Dioxide Anion Gap BUN Creatinine GFR Calculation Glucose Uric Acid Calcium Phosphorus Magnesium Total Bilirubin Direct Bilirubin GGT AST ALT Alkaline Phosphatase Lactate Dehydrogenase Total Protein Albumin Globulin Albumin/Globulin Ratio Triglycerides Gentamicin Trough Rheumatoid Factor Preliminary micro results at discharge 04/05/18 04:04 Blood Culture - Preliminary Blood Gram positive cocci Medical - DS: A/P - Patient/Caregiver Discharge Instructions Activity: increase activity as tolerated Diet: Regular Diet Additional Instructions: patient being discharged home with home hosice. Follow up instructions as per hospice team. - Follow up Plan Follow up with: Allen Holliday DO [Primary Care Provider] - Disposition: Hospice - Home Prognosis: Undetermined Rehab Potential: Undetermined I certify that the patient requires SNF services: No Overall status at discharge: patient is not back to baseline Medical - DS: Qual - VTE Deep Vein Thrombosis/Pulmonary Embolism Present on Admission: No
[2018-04-13] MEDS ORDERED: LORazepam 2 MG/ML VIAL IV ONE (14:45)
[2018-04-13 16:52] LABS: Basophils # (Auto) 0.1 K/mcL (0.0-0.3); Basophils % (Auto) 1.2 % (0.0-2.0); Eosinophils # (Auto) 0.2 K/mcL (0.0-0.7); Eosinophils % (Auto) 1.4 % (0.0-7.0); Granulocytes % (Auto) 69.5 % (38.0-78.0); Lymphocytes # (Auto) 2.1 K/mcL (1.5-4.8); Lymphocytes % (Auto) 20.1 % (15.5-49.0); Mean Cell Volume 81.8 fL (80.0-100.0); Mean Corpuscular HGB Conc 32.5 g/dL (31.0-36.0); Mean Corpuscular Hemoglobin 26.6 pg (26.0-34.0); Monocytes # (Auto) 0.8 K/mcL (0.1-0.9); Monocytes % (Auto) 7.8 % (1.0-12.0); Platelet Count 347 K/mcL (140-440); RBC 2.84 M/mcL (4.50-5.90); Red Cell Distribution Width 17.5 % (11.5-14.5)
[2018-04-13 18:07] LABS: ALT/SGPT < 5 U/l (0-40); Albumin 2.4 gm/dL (3.2-5.2); Albumin/Globulin Ratio 0.6 (1.0-2.3); Alkaline Phosphatase 100 U/L (39-117); Bilirubin,Direct < 0.2 mg/dL (0.0-0.3); Blood Urea Nitrogen 39 mg/dl (8-23); Gamma Glutamyl Transpeptidase 44 U/L (8-61); Uric Acid 6.1 mg/dL (2.5-8.0)
== END 2018-04-13 15:29 | disposition hospice, home (50) | DRG 306 ==
LOC: ED 08:53 → MEDSUR 12:54 → ICU 04-04 23:12 → UNDODISIN 04-06 15:45 → MEDSUR 04-11 13:32
PROVIDERS: ADMIT Internal Medicine; ATTEND Internal Medicine
CPT/HCPCS: 84145; 87149; 87324; 87449; 90935; 97161; 97167; 99152; 99153; 99223; 99231; A6213; J0290; J0360; J0692; J0696; J1580; J1644; J1815; J1817; J1953; J2405; J3370; J7030; J7040; J7050; J7060